=== PATIENT | female | born 1955 | race African-American/Black ===

== ENCOUNTER 2024-11-19 15:07 | Emergency (ER) | payer MEDICARE, SELFPAY ==
--- NOTE | ~2024-11-19 | XR_ITS ---
CHEST RADIOGRAPH, PA AND LATERAL CLINICAL HISTORY: syncope . COMPARISON: None available TECHNIQUE: PA and lateral views of the chest. FINDINGS The cardiomediastinal silhouette is unremarkable. A reticulonodular parenchymal pattern is detected bilaterally. No consolidation is present. No pleural effusion is noted. IMPRESSION: Reticulonodular parenchymal pattern, without focal infiltrate or effusion. Reviewed, dictated and finalized at location A.
--- NOTE | ~2024-11-19 | XR_ITS ---
HISTORY: left wrist pain, fall COMPARISON: None TECHNIQUE: 3 views of the left wrist were performed. FINDINGS: No acute fracture is identified. The carpal arcs are intact. Mild radiocarpal joint space narrowing with sclerosis of the distal radius is present. Degenerative disease is present at the first carpometacarpal joint space. The remaining visualized joint spaces are otherwise preserved. Bone mineralization is age-appropriate. Mild radial soft tissue swelling is noted. No radiopaque foreign body is identified. Significant vascular calcifications are present. IMPRESSION: Mild radial soft tissue swelling and degenerative disease. No acute fracture. Reviewed, dictated and finalized at location A.
[2024-11-19 15:34] VITALS: BP 145/64; PULSE 84; RESP 17; TEMP 36.8; O2SAT 97
--- NOTE | 2024-11-19 17:01 | ED.SYNCOPE ---
HPI - Syncope General Chief Complaint: Syncope <Mari Mayes PA-C - Last Filed: 11/20/24 10:56> Stated Complaint: syncopal episode this AM <Mari Mayes PA-C - Last Filed: 11/20/24 10:56> Time Seen by Provider: 11/19/24 17:01 <Mari Mayes PA-C - Last Filed: 11/20/24 10:56> Focused HPI: This is a 69 year old female that presents to the ER for a fall today. Reports she was at [facility] and she started to feel lightheaded. Reports she felt like she needed to go to the bathroom. Reports she got up to go to the bathroom. Reports she stumbled and fell. She does not believe she fully lost consciousness. She did not hit her head. Reports left wrist pain since the fall. Reports a similar episode of pre-syncope in the past. GENERAL: Well-appearing, well-nourished, and in no acute distress. HEAD: Normocephalic, atraumatic. CHEST: Clear to auscultation. ?No respiratory distress. HEART: Regular rate and rhythm.? NEURO: ?Alert and oriented x3. Patient screened in triage and initial orders placed.? ?Additional care and disposition to be based upon?diagnostic testing and treatment. <Mari Mayes PA-C - Last Filed: 11/20/24 10:56> History of Present Illness HPI narrative: I agree with the above HPI <Frank Peters MD - Last Filed: 11/19/24 22:57> Related Data Home Medications: Home Medications ?Medication ?Instructions ?Recorded ?Confirmed ?Last Taken ?Type apixaban 5 mg tablet (Eliquis) 5 mg PO BID 11/08/24 11/15/24 Unknown History atorvastatin 20 mg tablet (Lipitor) 20 mg PO DAILY 11/08/24 11/15/24 Unknown History calcitriol 0.25 mcg capsule 0.25 mcg PO 3XW 11/08/24 11/15/24 Unknown History diltiazem HCl 90 mg tablet 90 mg PO BID 11/08/24 11/15/24 Unknown History ergocalciferol (vitamin D2) 50 mcg 50 mcg PO DAILY 11/08/24 11/15/24 Unknown History (2,000 unit) capsule furosemide 40 mg tablet 40 mg PO QAM 11/08/24 11/15/24 Unknown History hydralazine 50 mg tablet 50 mg PO TID 11/08/24 11/15/24 Unknown History isosorbide dinitrate 30 mg tablet 30 mg PO DAILY 11/08/24 11/15/24 Unknown History losartan 100 mg tablet 100 mg PO DAILY 11/08/24 11/15/24 Unknown History semaglutide 0.25 mg or 0.5 mg (2 0.25 mg subcut WEEKLY 11/15/24 11/15/24 Unknown History mg/3 mL) subcutaneous pen injector (Ozempic) <Mari Mayes PA-C - Last Filed: 11/20/24 10:56> Allergies/Adverse Reactions: Allergies Allergy/AdvReac Type Severity Reaction Status Date / Time codeine Allergy Mild Hives Verified 11/19/24 15:40 <Mari Mayes PA-C - Last Filed: 11/20/24 10:56> Review of Systems Review of Systems: All systems reviewed & are unremarkable except as noted in HPI and below <Frank Peters MD - Last Filed: 11/19/24 22:57> [facility] Past Medical History Medical History: Medical History Type 2 diabetes mellitus <Mari Mayes PA-C - Last Filed: 11/20/24 10:56> Surgical History Surgical History: Surgical History History of cardiac ablation for atrial fibrillation Hx of cataract surgery <Mari Mayes PA-C - Last Filed: 11/20/24 10:56> Social History Social History: Social History Smoking status: Never smoker <Mari Mayes PA-C - Last Filed: 11/20/24 10:56> Exam Narrative: APPEARANCE: Well appearing, no pain, no distress, well-nourished. HEAD: normocephalic, atraumatic. EYES: PERRLA/EOMI, conjunctivae clear. NOSE: Normal no drainage EARS:TMS clear with good light reflex. THROAT: Pharynx clear, no exudate. NECK: Supple. No adenopathy, no masses. RESPIRATORY: Airway patent, respirations nonlabored. Clear to auscultation bilaterally, no rales, rhonchi, wheezing. CARDIOVASCULAR: Regular rate and rhythm without murmurs rubs or gallops. ABDOMINAL: Soft, nontender, nondistended, normal bowel sounds MUSCULOSKELETAL: Tenderness to left with was no deformity, normal range of motion NEURO: Alert. Cranial nerves II through XII intact. Good gait. Good coordination SKIN: Warm, dry. Normal Color <Frank Peters MD - Last Filed: 11/19/24 22:57> Course Vital Signs Vital signs: Vital Signs Temperature 98.2 F 11/19/24 15:34 Pulse Rate 84 11/19/24 15:34 Respiratory Rate 17 11/19/24 15:34 Blood Pressure 145/64 H 11/19/24 15:34 Pulse Oximetry 97 11/19/24 15:34 Oxygen Delivery Room Air 11/19/24 15:34 Temperature 98.2 F 11/19/24 15:34 Pulse Rate 89 11/19/24 23:32 Respiratory Rate 18 11/19/24 23:32 Blood Pressure 114/70 11/19/24 23:32 Pulse Oximetry 100 11/19/24 23:32 Oxygen Delivery Room Air 11/19/24 15:34 <Mari Mayes PA-C - Last Filed: 11/20/24 10:56> Vital Signs Temperature 98.2 F 11/19/24 15:34 Pulse Rate 84 11/19/24 15:34 Respiratory Rate 17 11/19/24 15:34 Blood Pressure 145/64 H 11/19/24 15:34 Pulse Oximetry 97 11/19/24 15:34 Oxygen Delivery Room Air 11/19/24 15:34 Temperature 98.2 F 11/19/24 15:34 Pulse Rate 89 11/19/24 23:32 Respiratory Rate 18 11/19/24 23:32 Blood Pressure 114/70 11/19/24 23:32 Pulse Oximetry 100 11/19/24 23:32 Oxygen Delivery Room Air 11/19/24 15:34 <Frank Peters MD - Last Filed: 11/19/24 22:57> MDM - Syncope MDM Narrative Medical decision making narrative: 61-year-old female presented emergency department for evaluation for a near syncopal episode during which she fell and injured her left wrist. Patient is currently afebrile with no leukocytosis hemoglobin of 10, patient does have known anemia. No significant electrolyte abnormalities. Patient does have a creatinine of 1.1 but patient was treated with a L of IV fluids. Baseline creatinine is unknown. Patient had negative troponin. Patient was negative for influenza RSV and for COVID. Chest x-ray shows no acute cardiopulmonary abnormality and wrist x-ray was negative for acute fracture dislocation. Patient does have a prior history of cardiac ablation and did have a Holter monitor recently that was resulted is negative. Patient describes more orthostatic hypotension rather than cardiac syncope. Patient was courage close follow-up with primary care physician. All questions concerns were addressed. <Frank Peters MD - Last Filed: 11/19/24 22:57> Differential Diagnosis Differential diagnosis: Likely syncope due to orthostatic hypotension, vasovagal syncope, complete atrioventricular block and other (Wrist fracture, wrist contusion) <Frank Peters MD - Last Filed: 11/19/24 22:57> Lab Data Attestation: I reviewed the patient's lab results. <Frank Peters MD - Last Filed: 11/19/24 22:57> Result diagrams: 11/19/24 20:30 11/19/24 21:21 <Mari Mayes PA-C - Last Filed: 11/20/24 10:56> Labs: Lab Results 11/19/24 11/19/24 11/19/24 Range/Units 19:50 20:27 20:29 WBC (4.5-10.0) K/mm3 RBC (4.2-5.4) M/mm3 Hgb (12.0-15.0) g/dL Hct (37.0-47.0) % MCV (80-100) fl MCH (26-34) pg MCHC (32-36) g/dl RDW (11.5-14.5) % Plt Count (150-375) k/mm3 MPV (7.4-10.4) fl Immature Gran % (Auto) (0-0.5) % Neut % (Auto) (45.5-73.1) % Lymph % (Auto) (18.3-44.2) % [place] % (Auto) (2.6-8.5) % Eos % (Auto) (0-4.4) % Baso % (Auto) (0.2-1.2) % Lymph # (Auto) (0.9-3.2) K/mm3 [place] # (Auto) (0.1-0.6) K/mm3 Eos # (Auto) (0-0.3) K/mm3 Baso # (Auto) (0.0-0.1) K/mm3 Abs Immat Gran (auto) (0.00-0.031) K/mm3 Absolute Neuts (auto) (1.3-6.7) K/mm3 Absolute Nucleated RBC (0.0-0.012) K/mm3 Band Neutrophils % (0-6) % Nucleated RBC % (0.0-0.2) % Platelet Estimate (Adequate) Hypochromasia Anisocytosis Schistocytes Sodium (137-145) mmol/L Potassium (3.4-5.0) mmol/L Chloride (98-107) mmol/L Carbon Dioxide (22-30) mmol/L Anion Gap (4-12) mmol/L BUN (7-17) mg/dL Creatinine (0.7-1.0) mg/dL Estim Creat Clear Calc ml/min Estimated GFR (59 - ) Glucose (65-110) mg/dL POC Capillary Glucose 103 107 H (65-105) mg/dl Calcium (8.4-10.2) mg/dL Magnesium Total Bilirubin (0.2-1.3) mg/dL AST (14-36) U/L ALT (6-35) U/L Alkaline Phosphatase (38-126) U/L Troponin I (0.000-0.034) ng/mL Total Protein (6.3-8.2) g/dL Albumin (3.5-5.1) g/dL TSH (Reflex) 1.370 (0.465-4.68) uIU/mL Influenza A (RT-PCR) (Negative) Influenza B (RT-PCR) (Negative) RSV (RT-PCR) (Negative) SARS-CoV-2 RNA (RT-PCR) (Negative) 11/19/24 11/19/24 11/19/24 Range/Units 20:30 20:41 21:21 WBC 6.0 (4.5-10.0) K/mm3 RBC 4.41 (4.2-5.4) M/mm3 Hgb 10.0 L (12.0-15.0) g/dL Hct 33.8 L (37.0-47.0) % MCV 76.6 L (80-100) fl MCH 22.7 L (26-34) pg MCHC 29.6 L (32-36) g/dl RDW 17.6 H (11.5-14.5) % Plt Count 233 (150-375) k/mm3 MPV 9.8 (7.4-10.4) fl Immature Gran % (Auto) 0.2 (0-0.5) % Neut % (Auto) 64.7 (45.5-73.1) % Lymph % (Auto) 26.0 (18.3-44.2) % [place] % (Auto) 8.0 (2.6-8.5) % Eos % (Auto) 0.8 (0-4.4) % Baso % (Auto) 0.3 (0.2-1.2) % Lymph # (Auto) 1.56 (0.9-3.2) K/mm3 [place] # (Auto) 0.5 (0.1-0.6) K/mm3 Eos # (Auto) 0.1 (0-0.3) K/mm3 Baso # (Auto) 0.0 (0.0-0.1) K/mm3 Abs Immat Gran (auto) 0.01 (0.00-0.031) K/mm3 Absolute Neuts (auto) 3.9 (1.3-6.7) K/mm3 Absolute Nucleated RBC 0.000 (0.0-0.012) K/mm3 Band Neutrophils % 0 (0-6) % Nucleated RBC % 0.0 (0.0-0.2) % Platelet Estimate Adequate (Adequate) Hypochromasia 1+ Anisocytosis 2+ Schistocytes None seen Sodium 137 (137-145) mmol/L Potassium 4.2 (3.4-5.0) mmol/L Chloride 106 (98-107) mmol/L Carbon Dioxide 20 L (22-30) mmol/L Anion Gap 11 (4-12) mmol/L BUN 22 H (7-17) mg/dL Creatinine 1.11 H (0.7-1.0) mg/dL Estim Creat Clear Calc 50 ml/min Estimated GFR 49 L (59 - ) Glucose 88 (65-110) mg/dL POC Capillary Glucose (65-105) mg/dl Calcium 8.5 (8.4-10.2) mg/dL Magnesium Cancelled 2.2 Total Bilirubin 0.6 (0.2-1.3) mg/dL AST 28 (14-36) U/L ALT 17 (6-35) U/L Alkaline Phosphatase 104 (38-126) U/L Troponin I < 0.012 (0.000-0.034) ng/mL Total Protein 7.0 (6.3-8.2) g/dL Albumin 3.8 (3.5-5.1) g/dL TSH (Reflex) (0.465-4.68) uIU/mL Influenza A (RT-PCR) Negative (Negative) Influenza B (RT-PCR) Negative (Negative) RSV (RT-PCR) Negative (Negative) SARS-CoV-2 RNA (RT-PCR) Negative (Negative) <Mari Mayes PA-C - Last Filed: 11/20/24 10:56> Lab Results 11/19/24 11/19/24 11/19/24 Range/Units 19:50 20:27 20:29 WBC (4.5-10.0) K/mm3 RBC (4.2-5.4) M/mm3 Hgb (12.0-15.0) g/dL Hct (37.0-47.0) % MCV (80-100) fl MCH (26-34) pg MCHC (32-36) g/dl RDW (11.5-14.5) % Plt Count (150-375) k/mm3 MPV (7.4-10.4) fl Immature Gran % (Auto) (0-0.5) % Neut % (Auto) (45.5-73.1) % Lymph % (Auto) (18.3-44.2) % [place] % (Auto) (2.6-8.5) % Eos % (Auto) (0-4.4) % Baso % (Auto) (0.2-1.2) % Lymph # (Auto) (0.9-3.2) K/mm3 [place] # (Auto) (0.1-0.6) K/mm3 Eos # (Auto) (0-0.3) K/mm3 Baso # (Auto) (0.0-0.1) K/mm3 Abs Immat Gran (auto) (0.00-0.031) K/mm3 Absolute Neuts (auto) (1.3-6.7) K/mm3 Absolute Nucleated RBC (0.0-0.012) K/mm3 Band Neutrophils % (0-6) % Nucleated RBC % (0.0-0.2) % Platelet Estimate (Adequate) Hypochromasia Anisocytosis Schistocytes Sodium (137-145) mmol/L Potassium (3.4-5.0) mmol/L Chloride (98-107) mmol/L Carbon Dioxide (22-30) mmol/L Anion Gap (4-12) mmol/L BUN (7-17) mg/dL Creatinine (0.7-1.0) mg/dL Estim Creat Clear Calc ml/min Estimated GFR (59 - ) Glucose (65-110) mg/dL POC Capillary Glucose 103 107 H (65-105) mg/dl Calcium (8.4-10.2) mg/dL Magnesium Total Bilirubin (0.2-1.3) mg/dL AST (14-36) U/L ALT (6-35) U/L Alkaline Phosphatase (38-126) U/L Troponin I (0.000-0.034) ng/mL Total Protein (6.3-8.2) g/dL Albumin (3.5-5.1) g/dL TSH (Reflex) 1.370 (0.465-4.68) uIU/mL Influenza A (RT-PCR) (Negative) Influenza B (RT-PCR) (Negative) RSV (RT-PCR) (Negative) SARS-CoV-2 RNA (RT-PCR) (Negative) 11/19/24 11/19/24 11/19/24 Range/Units 20:30 20:41 21:21 WBC 6.0 (4.5-10.0) K/mm3 RBC 4.41 (4.2-5.4) M/mm3 Hgb 10.0 L (12.0-15.0) g/dL Hct 33.8 L (37.0-47.0) % MCV 76.6 L (80-100) fl MCH 22.7 L (26-34) pg MCHC 29.6 L (32-36) g/dl RDW 17.6 H (11.5-14.5) % Plt Count 233 (150-375) k/mm3 MPV 9.8 (7.4-10.4) fl Immature Gran % (Auto) 0.2 (0-0.5) % Neut % (Auto) 64.7 (45.5-73.1) % Lymph % (Auto) 26.0 (18.3-44.2) % [place] % (Auto) 8.0 (2.6-8.5) % Eos % (Auto) 0.8 (0-4.4) % Baso % (Auto) 0.3 (0.2-1.2) % Lymph # (Auto) 1.56 (0.9-3.2) K/mm3 [place] # (Auto) 0.5 (0.1-0.6) K/mm3 Eos # (Auto) 0.1 (0-0.3) K/mm3 Baso # (Auto) 0.0 (0.0-0.1) K/mm3 Abs Immat Gran (auto) 0.01 (0.00-0.031) K/mm3 Absolute Neuts (auto) 3.9 (1.3-6.7) K/mm3 Absolute Nucleated RBC 0.000 (0.0-0.012) K/mm3 Band Neutrophils % 0 (0-6) % Nucleated RBC % 0.0 (0.0-0.2) % Platelet Estimate Adequate (Adequate) Hypochromasia 1+ Anisocytosis 2+ Schistocytes None seen Sodium 137 (137-145) mmol/L Potassium 4.2 (3.4-5.0) mmol/L Chloride 106 (98-107) mmol/L Carbon Dioxide 20 L (22-30) mmol/L Anion Gap 11 (4-12) mmol/L BUN 22 H (7-17) mg/dL Creatinine 1.11 H (0.7-1.0) mg/dL Estim Creat Clear Calc 50 ml/min Estimated GFR 49 L (59 - ) Glucose 88 (65-110) mg/dL POC Capillary Glucose (65-105) mg/dl Calcium 8.5 (8.4-10.2) mg/dL Magnesium Cancelled 2.2 Total Bilirubin 0.6 (0.2-1.3) mg/dL AST 28 (14-36) U/L ALT 17 (6-35) U/L Alkaline Phosphatase 104 (38-126) U/L Troponin I < 0.012 (0.000-0.034) ng/mL Total Protein 7.0 (6.3-8.2) g/dL Albumin 3.8 (3.5-5.1) g/dL TSH (Reflex) (0.465-4.68) uIU/mL Influenza A (RT-PCR) Negative (Negative) Influenza B (RT-PCR) Negative (Negative) RSV (RT-PCR) Negative (Negative) SARS-CoV-2 RNA (RT-PCR) Negative (Negative) <Frank Peters MD - Last Filed: 11/19/24 22:57> Imaging Data Radiologist's impression: Impressions Chest X-Ray 11/19/24 17:26 IMPRESSION: Reticulonodular parenchymal pattern, without focal infiltrate or effusion. Wrist X-Ray 11/19/24 17:28 IMPRESSION: Mild radial soft tissue swelling and degenerative disease. No acute fracture. <Frank Peters MD - Last Filed: 11/19/24 22:57> Critical Care Time Critical Care Time Critical Care Time: No <Mari Mayes PA-C - Last Filed: 11/20/24 10:56> Discharge Plan Discharge Clinical Impression: Near syncope Left wrist sprain Qualifiers: Encounter type: initial encounter Qualified Code(s): S63.502A - Unspecified sprain of left wrist, initial encounter <Mari Mayes PA-C - Last Filed: 11/20/24 10:56> Patient Disposition: Home <DILLON Burton Last Filed: 11/20/24 10:56> Condition: Stable <Mari Mayes PA-C - Last Filed: 11/20/24 10:56> Instructions: Antibiotic Form, Near Syncope (ED), Wrist Sprain (ED) <Mari Mayes PA-C - Last Filed: 11/20/24 10:56> Additional Instructions: Tylenol for pain control. Volar brace or Daniel wrap for comfort for the left wrist. Have close follow-up with her primary care physician for additional outpatient cardiac testing. If you have any worsening symptoms then please call or return to the emergency department. <Mari Mayes PA-C - Last Filed: 11/20/24 10:56> Patient Language: Croatian <Mari Mayes PA-C - Last Filed: 11/20/24 10:56> Prescriptions: No Action atorvastatin [Lipitor] 20 mg tablet 20 mg PO DAILY calcitriol 0.25 mcg capsule 0.25 mcg PO 3XW Rx Instructions: administer after dialysis on dialysis days diltiazem HCl 90 mg tablet 90 mg PO BID Eliquis 5 mg tablet 5 mg PO BID ergocalciferol (vitamin D2) 50 mcg (2,000 unit) capsule 50 mcg PO DAILY furosemide 40 mg tablet 40 mg PO QAM hydralazine 50 mg tablet 50 mg PO TID isosorbide dinitrate 30 mg tablet 30 mg PO DAILY Rx Instructions: allow nitrate-free interval of 12-14 hrs per 24-hr period losartan 100 mg tablet 100 mg PO DAILY Ozempic 0.25 mg or 0.5 mg (2 mg/3 mL) pen injector 0.25 mg subcut WEEKLY Rx Instructions: for 4 weeks <Mari Mayes PA-C - Last Filed: 11/20/24 10:56> Follow-up/Referrals: PHYSICIAN NOT ON STAFF,NONSTAFF [Non-Staff] - <Mari Mayes PA-C - Last Filed: 11/20/24 10:56>
--- NOTE | 2024-11-19 17:03 | ECG_ITS ---
Test Date: 2024-11-19 18:30:08 Measurements Intervals [place] Rate: 72 P: 36 CO: 175 QRS: -15 QRSD: 96 T: 68 QT: 429 QTc: 471 Interpretive Statements SINUS RHYTHM DELAYED PRECORDIAL R/S TRANSITION BORDERLINE ST-T WAVE ABNORMALITY- HIGH LATERAL LEADS BASELINE ARTIFACT- I, II, III, AVR, AVL, AVF, V1-V2 BORDERLINE ECG No previous ECG available for comparison Electronically Signed On 11-19-2024 19:49:11 CDT by Oscar Shelley D.O.
--- OUTSIDE RECORDS SUMMARY | 2024-11-19 17:18 | XMS_ITS | Referral Summary ---
Author Organization [facility] Address [address] [place] [id number] Care Team Providers Care Horticultural Nursery Assistant Name Role Phone Fiona Guzman MD Primary Care Provider Encounters Date Type Department Care Team Description 10/03/2024 2:30 PM CDT - 10/03/2024 11:59 PM CDT Hospital Encounter [facility] Cardiac Testing [address] [place] [address] Cardiac arrhythmia, unspecified cardiac arrhythmia type Discharge Disposition: Discharge to home or self care 08/28/2024 2:16 PM ECONOMETRICIAN - 08/28/2024 11:59 PM ECONOMETRICIAN Hospital Encounter [facility] MRI [address] [place] [address] Renal artery stenosis Discharge Disposition: Discharge to home or self care from Last 3 Months Allergies Active Allergy Reactions Criticality Noted Date Comments Codeine Rash Medium 05/12/2023 Medications hydrALAZINE (APRESOLINE) 25 mg tabletIndication s:hypertension Take 1 tablet (25 mg total) by mouth 3 (three) times a day Active furosemide (LASIX) 40 mg tablet Take 1 tablet (40 mg total) by mouth daily Active atorvastatin (LIPITOR) 10 mg tablet Take 1 tablet (10 mg total) by mouth daily Active isosorbide mononitrate ER (IMDUR) 30 mg 24 hr tablet Take 1 tablet (30 mg total) by mouth daily Active losartan (COZAAR) 100 mg tablet Take 1 tablet (100 mg total) by mouth daily Active metFORMIN (GLUCOPHAGE) 500 mg tablet Take 1 tablet (500 mg total) by mouth 2 (two) times a day with meals Active albuterol HFA (PROVENTIL HFA,VENTOLIN HFA,PROAIR HFA) 90 mcg/actuation inhaler Inhale 2 puffs every 4 (four) hours as needed 04/02/2023 Active amiodarone (PACERONE) 200 mg tablet Take 1 tablet (200 mg total) by mouth 2 (two) times a day 60 tablet 05/18/2023 Active apixaban (ELIQUIS) 5 mg tabletIndication s:VTE Prophylaxis Take 1 tablet (5 mg total) by mouth 2 (two) times a day 60 tablet 05/18/2023 Active Active Problems Problem Noted Date Diagnosed Date SVT (supraventricular tachycardia) 05/17/2023 Supraventricular tachycardia 04/22/2023 Social History Tobacco Use Types Packs/Day Years Used Date Smoking Tobacco: Never Smokeless Tobacco: Never Tobacco Cessation:Counseling Given: Not Answered AUDIT-C Answer Date Recorded Q1: How often do you have a drink containing alc ohol? Monthly or less 05/17/2023 Q2: How many drinks containi ng alcohol do you have on a typical day when you are drinking? 1 or 2 05/17/2023 Q3: How often do you have si x or more drinks on one occasion? Less than monthly 05/17/2023 Personal Safety Answer Date Recorded Have you ever been in or are you currently in a harmful physical or emotional relationship or is someone making you feel afraid or unsafe? Denies 05/17/2023 Comments Unknown Sex and Gender Information Value Date Recorded Sex Assigned at Not on file Legal Sex Female 12:22 PM ECONOMETRICIAN Gender Identity Not on file Sexual Orientation Not on file Last Filed Vital Signs Vital Sign Reading Time Taken Comments Blood Pressure 126/60 05/18/2023 8:14 AM CDT Pulse 81 05/18/2023 8:14 AM CDT Temperature 36.3 C (97.3 F) 05/18/2023 8:14 AM CDT Respiratory Rate 18 05/18/2023 8:14 AM CDT Oxygen Saturation 95% 05/18/2023 8:14 AM CDT Inhaled Oxygen Concentration - - Weight 108.9 kg (240 lb) 05/17/2023 11:04 AM CDT Height 157.5 cm (5' 2 ) 05/17/2023 11:04 AM CDT Body Mass Index 43.9 05/17/2023 11:04 AM CDT Plan of Treatment Not on file Procedures Procedure Name Priority Date/Time Associated Diagnosis Comments HOLTER MONITOR 24 HR Routine 10/03/2024 2:42 PM CDT Cardiac arrhythmia, unspecified cardiac arrhythmia type MRA RENAL ARTERIES Schedule Routine, Read Routine (OP Routine) 08/28/2024 3:20 PM ECONOMETRICIAN Renal artery stenosis from Last 3 Months Results * 24 HR Holter Monitor (10/03/2024 2:42 PM CDT) Anatomical Region Laterality Modality Electrocardiogra phy Narrative 10/11/2024 2:43 PM CDT Patient Id: Radha Gupta is a 69 y.o. female. MR#: [id number] Date of the procedure: October 03, 2024 Diagnosis: Arrhythmia Findings: 24 hour Holter done on the 03 October 2024 showed sinus rhythm at baseline. Heart rate varies from 48 beats per minute 157 beats per minute. Average heart rate is 70 beats per minute. Rhythm is bradycardia for less than 1% of the time and tachycardic for 2% of the time. The maximum sinus heart rate 113 beats per minute. There were 68 PVCs which accounted for less than 1% of total number of beats. There were 2769 PACS which accounted for 3% of total number of beats. There were 3 episodes of SVT. The longest is 11 beats per minute at heart rate 157 beats per minute. At that time patient asymptomatic. During minimum heart rate rhythm is sinus rhythm. Longest RR interval is 1.3 seconds after a 3 beat run of SVT. Patient did not report any symptoms Copy to Fiona Guzman MD 10/11/2024 Fiona Guzman MD [facility] SERVICES PROCEDUR ES Final Result * MRA Renal Arteries (08/28/2024 3:20 PM ECONOMETRICIAN) Anatomical Region Laterality Modality Body N/A Magnetic Resonan ce 08/28/2024 3:36 PM ECONOMETRICIAN Addenda Addendum by Temo Nuno DO on 09/17/2024 9:13 AM ECONOMETRICIAN ADDENDUM: This addendum report supersedes the original report dated 08/28/24 Reason of study should read: High blood pressure, atherosclerosis, diabetic END OF ADDENDUM REPORT THIS IS AN ELECTRONICALLY VERIFIED FINAL REPORT 09/17/2024 9:13 AM Addendum Electronically signed by Tmeo Nuno D.O. PS Report ID: [id number] Reading Location: [id number] 08/28/2024 3:41 PM ECONOMETRICIAN EXAM DESCRIPTION: MRA RENAL ARTERIES REASON FOR STUDY: renal artery stenosis TECHNIQUE: Multiplanar, multi-sequence (T1 and T2) contrast enhanced magnetic resonance imaging of the abdomen was performed according to abdominal aorta protocol. 3D MIP images rendered on scanning unit and reviewed at time of interpretation. CONTRAST TYPE/DOSE: 20mL of GADOTERATE MEGLUMINE 0.5 MMOL/ML INTRAVENOUS SOLUTION (SO) injected via intravenous COMPARISON: None. FINDINGS: AORTA AND ILIAC ARTERIES: The abdominal aorta is grossly normal in course and caliber without evidence of aneurysmal dilatation or hemodynamically significant stenosis. RENAL ARTERIES: There is a single right renal artery noted without evidence of hemodynamically significant stenosis, occlusion, or aneurysmal dilatation. There is a single left renal artery noted without evidence of hemodynamically significant stenosis, occlusion, aneurysmal dilatation. MESENTERIC VESSELS: The celiac artery appears grossly unremarkable without evidence of hemodynamically significant stenosis, aneurysmal dilatation, or occlusion. The superior mesenteric artery appears grossly unremarkable without evidence of hemodynamically significant stenosis, occlusion, aneurysmal dilatation. ABDOMEN/PELVIC VISCERA: The heart size is upper limits of normal. There is no definite evidence of pericardial effusion. The visualized lung bases are grossly clear. The liver is grossly normal in size and contour without definite evidence of a focal hepatic lesion within the limitations of the study. There is cholelithiasis without definite evidence of gallbladder wall thickening or pericholecystic fluid. The spleen is grossly normal in size and unremarkable. The pancreas appears grossly unremarkable without definite evidence of pancreatic ductal dilatation, peripancreatic inflammatory changes, or peripancreatic fluid collection. The bilateral adrenal glands are grossly symmetrical and unremarkable. The kidneys are grossly symmetrical in size. The bilateral kidneys enhance symmetrically. There is no definite evidence of a focal renal lesion. There is no definite evidence of hydronephrosis. The visualized bowel appears grossly unremarkable. There is no definite evidence of free fluid in the abdomen. There is no definite MRI evidence of abdominal lymphadenopathy. BONY STRUCTURES: There is a minimal to mild levoscoliotic curvature of the spine with degenerative changes. OTHER: No other significant finding. IMPRESSION: No definite evidence of hemodynamically significant stenosis, occlusion, or aneurysmal dilatation involving the bilateral renal arteries. Cholelithiasis. THIS IS AN ELECTRONICALLY VERIFIED FINAL REPORT 08/28/2024 3:41 PM - Electronically signed by Temo SANTAMARIA T: Report ID: [id number] Reading Location: [place] [address] Procedure Note Temo Nuno, DO - 08/28/2024 EXAM DESCRIPTION: MRA RENAL ARTERIES REASON FOR STUDY: renal artery stenosis TECHNIQUE: Multiplanar, multi-sequence (T1 and T2) contrast enhancedmagnetic resonance imaging of the abdomen was performed according to abdominalaorta protocol. 3D MIP images rendered on scanning unit and reviewed at timeof interpretation. CONTRAST TYPE/DOSE: 20mL of GADOTERATE MEGLUMINE 0.5 MMOL/ML INTRAVENOUS SOLUTION (SO) injected via intravenous COMPARISON: None. FINDINGS: AORTA AND ILIAC ARTERIES: The abdominal aorta is grosslynormal in course and caliber without evidence of aneurysmal dilatation or hemodynamically significant stenosis. RENAL ARTERIES: There is a single right renal artery noted withoutevidence of hemodynamically significant stenosis, occlusion, or aneurysmaldilatation. There is a single left renal artery noted without evidence ofhemodynamically significant stenosis, occlusion, aneurysmal dilatation. MESENTERIC VESSELS: The celiac artery appears grossly unremarkablewithout evidence of hemodynamically significant stenosis, aneurysmal dilatation,or occlusion. The superior mesenteric artery appears grossly unremarkable without evidence of hemodynamically significant stenosis, occlusion, aneurysmal dilatation. ABDOMEN/PELVIC VISCERA: The heart size is upper limits of normal. Thereis no definite evidence of pericardial effusion. The visualized lung basesare grossly clear. The liver is grossly normal in size and contour without definite evidenceof a focal hepatic lesion within the limitations of the study. There is cholelithiasis without definite evidence of gallbladder wall thickening or pericholecystic fluid. The spleen is grossly normal in size and unremarkable. The pancreas appears grossly unremarkable without definite evidence of pancreatic ductal dilatation, peripancreatic inflammatory changes, or peripancreatic fluid collection. The bilateral adrenal glands are grossly symmetrical and unremarkable. The kidneys are grossly symmetrical in size. The bilateral kidneysenhance symmetrically. There is no definite evidence of a focal renal lesion.There is no definite evidence of hydronephrosis. The visualized bowel appears grossly unremarkable. There is no definite evidence of free fluid in the abdomen. There is no definite MRI evidenceof abdominal lymphadenopathy. BONY STRUCTURES: There is a minimal to mild levoscoliotic curvature ofthe spine with degenerative changes. OTHER: No other significant finding. IMPRESSION: No definite evidence of hemodynamically significant stenosis, occlusion,or aneurysmal dilatation involving the bilateral renal arteries. Cholelithiasis. THIS IS AN ELECTRONICALLY VERIFIED FINAL REPORT 08/28/2024 3:41 PM - Electronically signed by Temo Nuno D.O. PS T: Report ID: [id number] Reading Location: [place] [address] Jony Santa MD IMG MRI PROCEDURES Edite d Result - Final from Last 3 Months Insurance [facility] MEDICARE ADVANTAGE Care Teams Horticultural Nursery Assistant Relationship Specialty Start Date End Date Fiona Guzman MD [address] [place] [id number] PCP - General Emergency Medicine 10/01/24
--- OUTSIDE RECORDS SUMMARY | 2024-11-19 17:18 | XMS_ITS | CONTINUITY OF CARE DOCUMENT ---
Author Name andriy ashraf Address Unknown Organization [facility] Address [address] [place] [address] Phone [phone] Care Team Providers Care Clamp Carrier Operator Name Role Phone Pedro TATUM, Balta Unavailable NORY MCKEE MD Unavailable [phone] NORY MCKEE MD Unavailable [phone] PROBLEMS Condition Status Date Provider Notes Atrial flutter ? typical active Balta pack MD Hyperlipidemia active Lamine Connell MD Pulmonary nodule active Lamine Connell MD Essential hypertension completed 0 - Rohan Albarado Chest pain active Lamine Connell MD Diabetes, Type 2 active ? Lamine Connell MD Hypertension active ? Lamine Connell MD Personal history of COVID-19 active Edison Broussard Palpitation active Edison Broussard SVT active Balta Vasquez MD Shortness of breath active Rohan Albarado Carotid bruit active Rohan Albarado ENCOUNTERS Date Type Provider Location Encounter Diag nosis - In-person encounter Office Visit Balta Vasquez MD [place] [facility] Carotid bruit - In-person encounter Office Visit Balta Vasquez MD [place] - In-person encounter Office Visit Balta Vasquez MD [facility] Essential hypertensionShortness of breath - In-person encounter Office Visit Balta Vasquez MD [place] Personal history of COVID-19PalpitationSVT - In-person encounter Office Visit Lamine Connell MD [facility] - In-person encounter Office Visit Lamine Connell MD [facility] HyperlipidemiaPulmonary noduleChest painDiabetes, Type 2Hypertension VITAL SIGNS Date Observation Value Provider Body Mass Index (Ratio) 43.34 kg/m2 Rohan Dentzai blood pressure, diastolic 91 mm[Hg] Li nkLogic blood pressure, systolic 172 mm[Hg] Grace kLogic blood pressure, cuff size regular Ja rret blood pressure, diastolic 91 mm[Hg] Ja rret blood pressure, systolic 172 mm[Hg] Jar ret pulse rate 80 /min Cam oxygen saturation, oximetry 97 % respiratory rate E&M 16 /min Cam weight E&M 237 [lb_av] y height E&M 62 [in_i] Cam y Body Mass Index (Ratio) 43.53 kg/m2 David Vasquez MD blood pressure, cuff size large Ke rri Gruenenfelder blood pressure, diastolic 86 mm[Hg] Ke rri Gruenenfelder blood pressure, systolic 176 mm[Hg] Ker ri Margareter oxygen saturation, oximetry 98 % Nuvia Beto respiratory rate E&M 12 /min Nuvia G hamenenfelder pulse rate 83 /min Nuvia Gruenenfe [facility] weight E&M 238 [lb_av] Nuvia Gruenenfe [facility] height E&M 62 [in_i] Nuvia Gruenenfe [facility] Body Mass Index (Ratio) 43.53 kg/m2 Rohan Dentzai blood pressure, diastolic 78 mm[Hg] Marcelina nkLogic blood pressure, systolic 157 mm[Hg] Grace kLogic blood pressure, cuff size regular Fa [facility] blood pressure, diastolic 78 mm[Hg] Fa [facility] blood pressure, systolic 157 mm[Hg] Miguel [place] oxygen saturation, oximetry 97 % [facility] pulse rate 78 /min [facility] respiratory rate E&M 16 /min Amie iniguez weight E&M 238 [lb_av] [facility] height E&M 62 [in_i] [facility] weight E&M 241 [lb_av] Mari vargas Body Mass Index (Ratio) 44.07 kg/m2 David Vasquez MD blood pressure, cuff size regular Ke rri Wildueirina blood pressure, diastolic 102 mm[Hg] Ke rri Gruenenfsebastian blood pressure, systolic 220 mm[Hg] Natalya ri Beto oxygen saturation, oximetry 98 % Nuvia Margaret respiratory rate E&M 12 /min Nuvia isaacs pulse rate 94 /min Nuvia Veranenfsheba [facility] weight E&M 241 [lb_av] Nuvia Veranenfe [facility] height E&M 62 [in_i] Nuvia Veranenfsheba [facility] Body Mass Index (Ratio) 45.76 kg/m2 Brendon Connell MD blood pressure, diastolic 91 mm[Hg] Boy Colin blood pressure, systolic 189 mm[Hg] Samina Colin oxygen saturation, oximetry 98 % Vlad Colin respiratory rate E&M 18 /min Julian Colin pulse rate 88 /min Vlad haji weight E&M 250.2 [lb_av] Vlad paon height E&M 62 [in_i] Vlad haji Body Mass Index (Ratio) 46.27 kg/m2 Brendon Connell MD blood pressure, resting Yes P[facility] blood pressure, diastolic 100 mm[Hg] Ki omid [place] blood pressure, systolic 140 mm[Hg] Dante leon [place] oxygen saturation, oximetry 98 % [facility] respiratory rate E&M 16 /min [facility] pulse rate 75 /min [facility] weight E&M 253 [lb_av] [facility] height E&M 62 [in_i] [facility] ALLERGIES Allergy Name Onset Date Reaction Criticality Status CODEINE SULFATE rash rash Low Criticality acti ve HISTORY OF MEDICATION USE Medication Status Instructions Dates Provider Indications Com ments magnesium oxide 400 mg (241.3 mg magnesium) tablet active TAKE 1 TABLET BY MOUTH TWICE DAILY Analy Rushing diltiazem HCl 90 mg tablet active TAKE 1 TABLET BY MOUTH TWICE DAILY Antonina Bach RN Eliquis 5 mg tablet active TAKE 1 TABLET BY MOUTH TWICE DAILY Analy Rushing diltiazem HCl 90 mg tablet completed Take 1 tablet by mouth twice a day - Antonina Bach RN magnesium oxide 400 mg magnesium tablet completed Take 1 tablet by mouth twice a day - Analy Rushing amiodarone 200 mg tablet completed Take 1 tablet by mouth twice a day - Rohan Albarado amiodarone 200 mg tablet completed - Nuvia Ballesterosquis 5 mg tablet completed TAKE 1 TABLET TWICE A DAY - Analy Santana hydralazine 25 mg tablet active three times a day Rohan Albarado isosorbide mononitrate 30 mg tablet extended release 24 hr active Edison Bobo EQ ONE DAILY WOMENS 50+ TABS active 1 tablet once a day Edison Bobo ASPIR-81 TABLET DELAYED RELEASE active 1 tablet once a day Edison Bobo Lipitor 10 mg tablet active 1 tablet once a day Edison Bobo metformin 500 mg tablet active Take 1 tablet by mouth twice a day as directed Edison Bobo #60, 30 days supply, Prescribed by NORY MCKEE, Filled 04/09/2017 metoprolol tartrate 100 mg tablet completed Take 1 tablet by mouth twice a day - Edison Bobo #60, 30 days supply, Prescribed by NORY MCKEE, Filled 04/13/2017 losartan 100 mg tablet active Take 1 tablet by mouth once a day as directed Edison Bobo #30, 30 days supply, Prescribed by NORY MCKEE, Filled 04/13/2017 furosemide 40 mg tablet active Take 1 tablet by mouth once a day as directed Edison Bobo #30, 30 days supply, Prescribed by NORY MCKEE, Filled 04/13/2017 BiDil 20-37.5 mg tablet completed Take 1 tablet by mouth three times a day as directed - Rohan Albarado #90, 30 days supply, Prescribed by NORY MCKEE, Filled 04/16/2017 SOCIAL HISTORY Date Observation Value Provider alcohol use no Rohan Albarado passive cigarette sm paty exposure no Rohan Albarado smoking status Never smoker Rohan Albarado alcohol use no Rohan Albarado passive cigarette sm paty exposure no Rohan Albarado smoking status Never smoker Rohan Albarado social history E&M Marital Statu s: Single Miguelina lackey: 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 Lamine Connell MD social history reviewed E&M revi ewed - no changes required Lamine Connell MD smoking status Never smoker [place] Myriam [facility]ley FAMILY HISTORY Family Member Condition Father Family History of Pr ostate Cancer: Father Family History of Miryam ng Cancer: Father Family History of Ao rtic Aneurysm: INSURANCE PROVIDERS Payer name Policy type / Coverage type [place] red republican ID [facility] Other AARP MEDICARE ADVANTAGE [facility] (O) Medicare [id number] ADVANCE DIRECTIVES Name Date DISCUSSED - NO DECISION MADE TREATMENT PLAN Date Name Performer [id number],Miguelinai alessandra, she is on amiodarone, will check PFT for baseline [facility] [id number],C, H er updated medication list for this problem includes: Lipitor 10 Mg Tablet (Atorvastatin) ..... 1 tablet once a day [facility] [id number],C, H er updated medication list for this problem includes: Losartan 100 Mg Tablet (Losartan) ..... Take 1 tablet by mouth once a day as directed Metformin 500 Mg Tablet (Metformin) ..... Take 1 tablet by mouth twice a day as directed [facility] [id number],C, B P today: 157/78 P rior BP: 220/102 (04/22/2023) Her updated medication list for this problem includes: Furosemide 40 Mg Tablet (Furosemide) ..... Take 1 tablet by mouth once a day as directed Losartan 100 Mg Tablet (Losartan) ..... Take 1 tablet by mouth once a day as directed Hydralazine 25 Mg Tablet (Hydralazine) [facility] [id number],C, palpitations have improved since her procedure [facility] [id number],C,s/p ablation on 05/17 [facility] [id number],C,s/p ablation on 05/17 [facility] [id number],W,P t is here following discharge from hospital yesterday after arriving due to palpitations. She had covid-19 last month and did not feel well. She also contracted another virus beginning of March. She noticed palpitations occuring after these viral infections. She reports no syncope or CP today. Dc from hospital Creatinine 1.0 eGRFR more than 60. Normal liver function. EKG showed SVT and AVRCT R ecommend pt undergo ablation given her frequent symptomatic episodes of arrythmias Rohan Albarado [id number],S, H er updated medication list for this problem includes: Lipitor 10 Mg Tablet (Atorvastatin) ..... 1 tablet once a day Edison Broussard [id number],W,P t is here following discharge from hospital yesterday after arriving due to palpitations. She had covid-19 last month and did not feel well. She also contracted another virus beginning of March. She noticed palpitations occuring after these viral infections. She reports no syncope or CP today. Dc from hospital Creatinine 1.0 eGRFR more than 60. Normal liver function. EKG showed SVT and AVRCT Edison Broussard [id number],S, Her updated medication list for this problem includes: Aspir-81 Tablet Delayed Release (Aspirin tbec) ..... 1 tab daily Metformin Hcl 500 Mg Oral Tablet (Metformin hcl) ..... Tk 1 t po bid utd Losartan Potassium 100 Mg Oral Tablet (Losartan potassium) ..... Tk 1 t po qd utd Edison Broussard [id number],S, B P today: 220/102 P rior BP: 189/91 (06/20/2018) Her updated medication list for this problem includes: Aspir-81 Tablet Delayed Release (Aspirin tbec) ..... 1 tab daily Metoprolol Tartrate 100 Mg Oral Tablet (Metoprolol tartrate) ..... Tk 1 t po bid Losartan Potassium 100 Mg Oral Tablet (Losartan potassium) ..... Tk 1 t po qd utd Furosemide 40 Mg Oral Tablet (Furosemide) ..... Tk 1 t po qd utd Edison Broussard Electrophysiology:EK G today shows sinus rhythm Rohan Albarado Electrophysiology:Mo nitor your BP at home, goal BP is <135/85 R educe dietary sodium consumption BP today: 172/91 P rior BP: 176/86 (07/08/2023) Her updated medication list for this problem includes: Diltiazem Hcl 90 Mg Tablet (Diltiazem hcl) ..... Take 1 tablet by mouth twice a day Furosemide 40 Mg Tablet (Furosemide) ..... Take 1 tablet by mouth once a day as directed Losartan 100 Mg Tablet (Losartan) ..... Take 1 tablet by mouth once a day as directed Hydralazine 25 Mg Tablet (Hydralazine) [facility] Electrophysiology: H er updated medication list for this problem includes: Diltiazem Hcl 90 Mg Tablet (Diltiazem hcl) ..... Take 1 tablet by mouth twice a day Isosorbide Mononitrate 30 Mg Tablet Extended Release 24 Hr (Isosorbide mononitrate) [facility] Electrophysiology: H er updated medication list for this problem includes: Diltiazem Hcl 90 Mg Tablet (Diltiazem hcl) ..... Take 1 tablet by mouth twice a day Furosemide 40 Mg Tablet (Furosemide) ..... Take 1 tablet by mouth once a day as directed Losartan 100 Mg Tablet (Losartan) ..... Take 1 tablet by mouth once a day as directed [facility] Electrophysiology: H er updated medication list for this problem includes: Lipitor 10 Mg Tablet (Atorvastatin) ..... 1 tablet once a day [facility] Electrophysiology: H er updated medication list for this problem includes: Losartan 100 Mg Tablet (Losartan) ..... Take 1 tablet by mouth once a day as directed Metformin 500 Mg Tablet (Metformin) ..... Take 1 tablet by mouth twice a day as directed [facility] Electrophysiology:stable [facility] Electrophysiology: H er updated medication list for this problem includes: Losartan 100 Mg Tablet (Losartan) ..... Take 1 tablet by mouth once a day as directed Metformin 500 Mg Tablet (Metformin) ..... Take 1 tablet by mouth twice a day as directed [facility] Electrophysiology: H er updated medication list for this problem includes: Lipitor 10 Mg Tablet (Atorvastatin) ..... 1 tablet once a day [facility] Electrophysiology:Di scussion of benefits for remote patient monitoring took place. Patient gives consent for remote monitoring of blood pressure. BP today: 176/86 P rior BP: 157/78 (05/27/2023) [facility] Electrophysiology: s /p ablation on 05/17 w ill stop Amiodarone, start Diltiazem 90 mg BID [facility] Electrophysiology:im proving, she is on amiodarone, will check PFT for baseline [facility] Electrophysiology: H er updated medication list for this problem includes: Lipitor 10 Mg Tablet (Atorvastatin) ..... 1 tablet once a day [facility] Electrophysiology: H er updated medication list for this problem includes: Losartan 100 Mg Tablet (Losartan) ..... Take 1 tablet by mouth once a day as directed Metformin 500 Mg Tablet (Metformin) ..... Take 1 tablet by mouth twice a day as directed [facility] Electrophysiology: B P today: 157/78 P rior BP: 220/102 (04/22/2023) Her updated medication list for this problem includes: Furosemide 40 Mg Tablet (Furosemide) ..... Take 1 tablet by mouth once a day as directed Losartan 100 Mg Tablet (Losartan) ..... Take 1 tablet by mouth once a day as directed Hydralazine 25 Mg Tablet (Hydralazine) [facility] Electrophysiology: p alpitations have improved since her procedure [facility] Electrophysiology:s/p ablation o n 05/17 [facility] Electrophysiology:s/p ablation o n 05/17 [facility] Electrophysiology:Pt is here following discharge from hospital yesterday after arriving due to palpitations. She had covid-19 last month and did not feel well. She also contracted another virus beginning of March. She noticed palpitations occuring after these viral infections. She reports no syncope or CP today. Dc from hospital Creatinine 1.0 eGRFR more than 60. Normal liver function. EKG showed SVT and AVRCT R ecommend pt undergo ablation given her frequent symptomatic episodes of arrythmias [facility] Electrophysiology: H er updated medication list for this problem includes: Lipitor 10 Mg Tablet (Atorvastatin) ..... 1 tablet once a day Edison Broussard Electrophysiology:Pt is here following discharge from hospital yesterday after arriving due to palpitations. She had covid-19 last month and did not feel well. She also contracted another virus beginning of March. She noticed palpitations occuring after these viral infections. She reports no syncope or CP today. Dc from hospital Creatinine 1.0 eGRFR more than 60. Normal liver function. EKG showed SVT and AVRCT Edison Broussard Electrophysiology: Her updated medication list for this problem includes: Aspir-81 Tablet Delayed Release (Aspirin tbec) ..... 1 tab daily Metformin Hcl 500 Mg Oral Tablet (Metformin hcl) ..... Tk 1 t po bid utd Losartan Potassium 100 Mg Oral Tablet (Losartan potassium) ..... Tk 1 t po qd utd Edison Broussard Electrophysiology: B P today: 220/102 P rior BP: 189/91 (06/20/2018) Her updated medication list for this problem includes: Aspir-81 Tablet Delayed Release (Aspirin tbec) ..... 1 tab daily Metoprolol Tartrate 100 Mg Oral Tablet (Metoprolol tartrate) ..... Tk 1 t po bid Losartan Potassium 100 Mg Oral Tablet (Losartan potassium) ..... Tk 1 t po qd utd Furosemide 40 Mg Oral Tablet (Furosemide) ..... Tk 1 t po qd utd Edison Larsoninari Cardiology:Not seen on CXR 02/08. Lamine Connell MD Cardiology Lamine Connell MD Cardiology Lamine Connell MD Cardiology Lamine Connell MD Cardiology Lamine Connell MD Cardiology Lamine Connell MD Cardiology Lamine Connell MD Cardiology:Will try and exercise more, lose weight and watch salt. BP at home runs high normal. No med changes at this time. Lamine Connell MD Date Name Carotid Duplex Bilat eral Aorta Duplex Ultraso und DLCO - 48208 FRC - 15239 FVC - 10722 PARTIAL THROMBOPLAST IN TIME, ACTIVATED BASIC METABOLIC PANE L W/EGFR CBC (INCLUDES DIFF/P LT) PROTHROMBIN TIME WIT H INR Holter Monitor 48 hr Stress Routine Sleep Study Home CT Chest w/ contrast Schedule Followup HISTORY OF PROCEDURES Procedure Date Procedure Name Provider Procedure Notes S tatus EKG Balta fu MD completed FVC / MVV - 13120 Balta weathers MD completed SpO2 w/o 6min walk/titration Balta Vasquez MD completed DLCO - 45792 Balta fu MD completed Schedule Followup Balta weathers MD scehdule fu with Dr. Vasquez on Sunday 05/27 1 PM at [facility] active EKG Lamine Connell MD complete d EKG Lamine Connell MD complete d SNOMED-CT: [id number] Current Medications Documented Lamine Connell MD completed
--- OUTSIDE RECORDS SUMMARY | 2024-11-19 17:18 | XMS_ITS | Clinical Summary ---
Author Organization [facility] Address [address] [place] [address] Care Team Providers Care Tamping Machine Operator Road Forms Name Role Phone Fiona Guzman MD Primary Care Provider [phone] Source Comments [facility],non-owned Affiliates and Associated Physician Practices is amultiple site organization consisting of ambulatory clinics and hospital sitesin [place], [place], [place] and [place]. This disclosure is being madepursuant to the Care Everywhere program and may not contain all information available regarding this patient. Last updated 18.[facility] Allergies Active Allergy Reactions Criticality Noted Date Comments Codeine Unknown 07/01/2024 Medications * Be aware that medications may not be up to date on this document. Alwaysverify current medications with the patient. Eliquis 5 MG tablet Take 1 (one) tablet by mouth 2 times daily 4 Active calcitriol (Rocaltrol) 0.25 MCG capsule TAKE 1 CAPSULE BY MOUTH EVERY WEEK IN THE MORNING 4 Active Vitamin D3 (Cholecalcifero l) 50 MCG (1999) capsule Take 1 (one) capsule by mouth every morning 4 Active dilTIAZem (Cardizem) 90 MG tablet Take 1 (one) tablet by mouth 2 times daily 4 Active furosemide (Lasix) 40 MG tablet Take 1 (one) tablet by mouth once daily 4 Active hydrALAZINE (Apresoline) 50 MG tablet Take 1 (one) tablet by mouth 3 times daily 4 Active isosorbide mononitrate CR 24hr (Imdur) 30 MG tablet Take 1 (one) tablet by mouth once daily as directed. 4 Active losartan (Cozaar) 100 MG tablet Take 1 (one) tablet by mouth once daily 4 Active Magnesium Oxide -Mg Supplement 400 (240 Mg) MG Take 1 (one) tablet by mouth 2 times daily 4 Active metFORMIN (Glucophage) 500 MG tablet Take 1 (one) tablet by mouth 2 times daily 4 Active atorvastatin (Lipitor) 20 MG tablet Take 1 (one) tablet by mouth at bedtime Active acetaminophen (Tylenol) 500 MG tablet Take 1 (one) tablet by mouth every 4 hours as needed for Fever or Pain Maximum allowable Acetaminophen amount = 4 Grams (4000 mg) / 24 hours. Active Active Problems Problem Noted Date Diagnosed Date Thyroid nodule 07/01/2024 Multinodular thyroid 07/01/2024 Type 2 diabetes mellitus, wi thout long-term current use of insulin 07/01/2024 Class 3 severe obesity in adult 07/01/2024 Primary hypertension 07/01/2024 Hyperlipidemia 07/01/2024 Osteoarthritis 07/01/2024 Carotid bruit 10/07/2023 Pulmonary nodule 05/03/2017 Family History Medical History Relation Name Comments Arthritis - Osteo Brother COPD - Chronic Obstructive Pulmonary Disease Brother Arthritis - Osteo Father Cancer - Lung Father Cancer - Prostate Father Hypertension Father Arthritis - Osteo Mother Dementia Mother Arthritis - Osteo Sister Hypertension Sister Renal Disease Sister CVA Neg Hx Diabetes - Type 1 Neg Hx Diabetes - Type 2 Neg Hx Thyroid Disease Neg Hx Relation Name Status Comments Brother Alive Father Mother Sister Alive Social History Tobacco Use Types Packs/Day Years Used Date Smoking Tobacco: Never Smokeless Tobacco: Never Tobacco Cessation:Counseling Given: Not Answered Alcohol Use Standard Drinks/Week Comments Never 0 (1 standard drink = 0.6 oz pur e alcohol) Comments Unknown Sex and Gender Information Value Date Recorded Sex Assigned at Not on file Legal Sex Female 9:21 AM CDT Gender Identity Not on file Sexual Orientation Not on file Last Filed Vital Signs Vital Sign Reading Time Taken Comments Blood Pressure 163/73 07/12/2024 1:45 PM NETWORK PROGRAM MANAGER Pulse 82 07/12/2024 1:45 PM NETWORK PROGRAM MANAGER Temperature - - Respiratory Rate - - Oxygen Saturation 93% 07/12/2024 1:45 PM NETWORK PROGRAM MANAGER Inhaled Oxygen Concentration - - Weight 107.5 kg (237 lb) 07/12/2024 1:45 PM NETWORK PROGRAM MANAGER Height - - Body Mass Index - - Plan of Treatment Upcoming Encounters Date Type Department Care Team (Late st Contact Info) Description 01/09/2025 2:00 PM CDT Office Visit [facility] - Endocrinology [address] [place] [address], [facility] [place] [address] Rangel Dominguez MD [address] [place] [address] [place] [address] Health Maintenance Due Date Last Done Comments BONE DENSITY TESTING 1955 COLOGUARD (AGES 45-75) - COLON CA SCREENING 1956 COLON MONITORING 1956 COLONOSCOPY - COLON CA SCREENING 1956 CT COLONOGRAPHY - COLON CA SCREENING 1955 Colorectal Cancer Screening 1956 FIT - COLON CA SCREENING 1956 FLEX SIG - COLON CA SCREENING 1956 MAMMOGRAM 1956 HEPATITIS C SCREENING 06/25/1974 DIABETES-SERUM CREATININE 1974 DTAP/TDAP/TD VACCINES (1 - Tdap) 1975 PNEUMOCOCCAL VACCINE 50+ (1 of 2 - PCV) 1975 ZOSTER VACCINE (1 of 2) 2006 COVID-19 VACCINE ( - season) 2024 06/23/2022, 08/03/2021, 10/24/2020, Additional history exists DIABETES RETINOPATHY SCREENING 07/01/2024 DIABETES-FOOT EXAM WITH MONOFILAMENT 07/01/2024 DIABETES-HGB A1C 07/01/2024 DEPRESSION SCREENING 07/25/2024 DIABETES - URINE PROTEIN SCREENING 07/25/2024 MEDICARE AWV CALENDAR YEAR 2024 INFLUENZA VACCINE (Season Ended) 2025 Respiratory Syncytial Virus (RSV) Vaccine Pt: or over 60 yrs (1 - 1-dose 75+ series) 2031 HEPATITIS B VACCINE Aged Out No longe r eligible based on patient's age to complete this topic HIB VACCINE Aged Out No longer eligi ble based on patient's age to complete this topic HPV VACCINE Aged Out No longer eligi ble based on patient's age to complete this topic MENINGOCOCCAL (Group B) VACCINE SHARED DECISION-MAKING Aged Out No longer eligible based on patient's age to complete this topic MENINGOCOCCAL GROUPS A/C/Y/W VACCINE Aged Out No longer eligible based on patient's age to complete this topic Insurance [facility] MANAGED MEDICARE ADV Care Teams Tamping Machine Operator Road Forms Relationship Specialty Start Date End Date Fiona Guzman MD [address] [place] [phone] PCP - General Emergency Medicine 07/02/24
--- OUTSIDE RECORDS SUMMARY | 2024-11-19 17:18 | XMS_ITS | Clinical Summary ---
Author Organization [facility] Address [address] [place] [address] Care Team Providers Care Folder Tier Name Role Phone Fiona Guzman MD Primary Care Provider [phone] Allergies Active Allergy Reactions Criticality Noted Date [...] SVT (supraventricular tachycardia) 05/17/2023 Supraventricular tachycardia 04/22/2023 Encounters Date Type Department Care Team Description 10/03/2024 2:30 PM CDT - 10/03/2024 11:59 PM CDT Hospital Encounter [facility] Cardiac Testing [address] [place] [address] Cardiac arrhythmia, unspecified cardiac arrhythmia type Discharge Disposition: Discharge to home or self care 08/28/2024 2:16 PM CLIENT RESOURCE SPECIALIST - 08/28/2024 11:59 PM CLIENT RESOURCE SPECIALIST Hospital Encounter [facility] [place] [address] [place] [address] Renal artery stenosis Discharge Disposition: Discharge to home or self care from Last 3 Months Surgical History Surgery Date Site/Laterality Comments PARTIAL HYSTERECTOMY Medical History Medical History Date Comments Arrhythmia Hypertension Asthma Type 2 diabetes mellitus (HCC) Social History Tobacco Use Types Packs/Day Years [...] on file Legal Sex Female 12:22 PM CLIENT RESOURCE SPECIALIST Gender Identity Not on file Sexual Orientation Not on file Obstetrics History Last Filed Vital Signs Vital Sign Reading [...] 05/17/2023 11:04 AM CDT Plan of Treatment Health Maintenance Due Date Last Done Comments Breast Cancer Screening-Mammogram 1955 Colon Cancer Screening-Colonoscopy 1956 Depression Screening 1956 Hepatitis C Screening 1956 Osteoporosis Screening-Bone Density Scan 1956 DTaP/Tdap/Td Vaccine (1 - Tdap) 1967 Hepatitis B Screening 1974 Pneumococcal vaccine 65+ (1 of 1 - PCV) 2006 Zoster Vaccine (1 of 2) 2006 Well Visit 65+ 2021 Covid-19 Vaccine ( season) 2024 08/03/2021, 10/24/2020, 10/06/2020 Fall Risk Assessment 05/18/2024 05/18/2023 Influenza Vaccine (Season Ended) 2025 Procedures Procedure Name Priority Date/Time Associated Diagnosis Comments HOLTER MONITOR 24 HR Routine 10/03/2024 2:42 PM CDT Cardiac arrhythmia, unspecified cardiac arrhythmia type MRA RENAL ARTERIES Schedule Routine, Read Routine (OP Routine) 08/28/2024 3:20 PM CLIENT RESOURCE SPECIALIST Renal artery stenosis from Last 3 Months Results * 24 HR Holter Monitor (10/03/2024 2:42 PM CDT) Anatomical Region Laterality Modality Electrocardiogra phy Narrative 10/11/2024 2:43 PM CDT Patient Id: Radha Gupta is a 69 y.o. female. MR#: [id number] Date of the procedure: October 03, 2024 [...] symptoms Copy to Fiona Guzman MD 10/11/2024 us Fiona Guzman MD CV CARDIAC SERVICES PROCEDUR ES Final Result * MRA Renal Arteries (08/28/2024 3:20 PM CLIENT RESOURCE SPECIALIST) Anatomical Region Laterality Modality Body N/A Magnetic Resonan ce 08/28/2024 3:36 PM CLIENT RESOURCE SPECIALIST Addenda Addendum by Temo Nuno DO on 09/17/2024 9:13 AM CLIENT RESOURCE SPECIALIST ADDENDUM: This addendum report supersedes the original report dated 08/28/24 Reason of study should read: High blood pressure, atherosclerosis, diabetic END OF ADDENDUM REPORT THIS IS AN ELECTRONICALLY VERIFIED FINAL REPORT 09/17/2024 9:13 AM Addendum Electronically signed by Temo Nuno D.O. PS Report ID: [id number] Reading Location: [id number] Narrative 08/28/2024 3:41 PM CLIENT RESOURCE SPECIALIST EXAM DESCRIPTION: MRA RENAL ARTERIES REASON FOR [...] signed by Temo SANTAMARIA T: Report ID: [id number] Reading Location: [id number] Procedure Note Temo Nuno DO - 08/28/2024 EXAM DESCRIPTION: MRA RENAL [...] Temo Nuno D.O. PS T: Report ID: [id number] Reading Location: [place] [address] Jony Santa MD IM MRI PROCEDURES Edite d Result - Final from Last 3 Months Insurance [facility] MEDICARE [facility] Address: [address] [address] Care Teams Folder Tier Relationship Specialty Start Date End Date Fiona Guzman MD [address] [place] [address] PCP - General Emergency Medicine 10/01/24
[2024-11-19 18:19] VITALS: BP 153/68; PULSE 76; RESP 15; O2SAT 100
--- NOTE | 2024-11-19 18:38 | PC.NURSE ---
this RN attempts to get blood work on pt with no success.
--- NOTE | 2024-11-19 19:50 | PC.NURSE ---
Patient's family member to triage desk stating the patient is passing out. BRITTANI Alaniz assisting patient to lay down on bench. Charge made aware and moving patient to a room.
[2024-11-19 19:52] LABS: Glucose Point of Care 103 mg/dl (65-105)
[2024-11-19 20:03] VITALS: BP 137/59; PULSE 72; RESP 18; O2SAT 99
--- OUTSIDE RECORDS SUMMARY | 2024-11-19 20:12 | XMS_ITS | CONTINUITY OF CARE DOCUMENT ---
Author Name andriy ashraf Address Unknown Organization [facility] Address [address] [place] [address] Phone [phone] Care Team Providers Care Silk Soaker Name Role Phone Pedro TATUM, Balta Unavailable NORY MCKEE MD Unavailable [phone] NORY MCKEE MD Unavailable [phone] PROBLEMS Condition Status Date Provider Notes Atrial [...] In-person encounter Office Visit Balta Vasquez MD [facility] Carotid bruit - In-person encounter Office Visit Balta Vasquez MD [facility] - In-person encounter Office Visit Balta Vasquez MD [facility] Essential hypertensionShortness of breath - In-person encounter Office Visit Balta Vasquez MD [facility] Personal history of COVID-19PalpitationSVT - In-person encounter Office Visit Lamine Connell MD [facility] - In-person encounter Office Visit Lamine Connell MD [facility] HyperlipidemiaPulmonary noduleChest painDiabetes, Type 2Hypertension VITAL [...] pulse rate 83 /min Nuvia Gruenenfe [facility] weight E&M 238 [lb_av] Nuvia Gruenenfe [facility] height E&M 62 [in_i] Nuvia Gruenenfe [facility] Body Mass Index (Ratio) 43.53 kg/m2 Rohan Dentzai blood pressure, diastolic 78 mm[Hg] Marcelnia nkLogic blood pressure, systolic 157 mm[Hg] Grace kLogic blood pressure, cuff size regular Fa [facility] blood pressure, diastolic 78 mm[Hg] Fa [facility] blood pressure, systolic 157 mm[Hg] [facility], oximetry 97 % [facility] pulse rate 78 /min [facility] respiratory rate E&M 16 /min Amie iniguez weight E&M 238 [lb_av] [facility] height E&M 62 [in_i] [facility] weight E&M 241 [lb_av] Mari vargas Body Mass Index (Ratio) 44.07 kg/m2 David Vasquez MD blood pressure, cuff size regular Ke rri Wildueirina blood pressure, diastolic 102 mm[Hg] Ke rri Gruenenfsebastian blood pressure, systolic 220 mm[Hg] Natalya ri Beto oxygen saturation, oximetry 98 % Nuvia Margaret respiratory rate E&M 12 /min Nuvia isaacs pulse rate 94 /min Nuvia Veranenfsheba [facility] weight E&M 241 [lb_av] Nuvia Veranenfe [facility] height E&M 62 [in_i] Nuvia Veranenfsheba [facility] Body Mass Index (Ratio) 45.76 kg/m2 [...] Connell MD blood pressure, resting Yes [facility] blood pressure, diastolic 100 mm[Hg] Ki omid [place] blood pressure, systolic 140 mm[Hg] Dante leon [place] oxygen saturation, oximetry 98 % [facility] respiratory rate E&M 16 /min [facility] pulse rate 75 /min [facility] weight E&M 253 [lb_av] [facility] height E&M 62 [in_i] [facility] ALLERGIES Allergy Name Onset Date Reaction [...] Single Miguelina lackey: 1 O ccupation: ATT supply clerk Smoking History: P atient has never smoked. 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 Lamine Connell MD social history reviewed E&M revi ewed - no changes required Lamine Connell MD smoking status Never smoker [place] Myriam crowley FAMILY HISTORY Family Member Condition Father Family History of Pr ostate Cancer: Father Family History of Miryam ng Cancer: Father Family History of Ao rtic Aneurysm: INSURANCE PROVIDERS Payer name Policy type / Coverage type [place] red libertarian ID [facility] Other [employer]ARP MEDICARE ADVANTAGE [facility] (O) Medicare [id number] ADVANCE DIRECTIVES Name Date DISCUSSED - NO DECISION MADE TREATMENT PLAN Date Name Performer [id number],Miguelinai alessandra, she is on amiodarone, will check PFT for baseline [facility] [id number],C, H er updated medication list for this problem includes: Lipitor 10 Mg Tablet (Atorvastatin) ..... 1 tablet once a day [facility] [id number],C, H er updated medication list for this problem includes: Losartan 100 Mg Tablet (Losartan) ..... Take 1 tablet by mouth once a day as directed Metformin 500 Mg Tablet (Metformin) ..... Take 1 tablet by mouth twice a day as directed [facility] [id number],C, B P today: 157/78 P rior BP: 220/102 (04/22/2023) Her updated medication list for this problem includes: Furosemide 40 Mg Tablet (Furosemide) ..... Take 1 tablet by mouth once a day as directed Losartan 100 Mg Tablet (Losartan) ..... Take 1 tablet by mouth once a day as directed Hydralazine 25 Mg Tablet (Hydralazine) [facility] [id number],C, palpitations have improved since her procedure [facility] [id number],C,s/p ablation on 05/17 [facility] [id number],C,s/p ablation on 05/17 [facility] [id number],W,P t is here following discharge from hospital [...] frequent symptomatic episodes of arrythmias Rohan Albarado [id number],S, H er updated medication list for this problem includes: Lipitor 10 Mg Tablet (Atorvastatin) ..... 1 tablet once a day Edison Broussard [id number],W,P t is here following discharge from hospital [...] EKG showed SVT and AVRCT Edison Broussard [id number],S, Her updated medication list for this problem includes: Aspir-81 Tablet Delayed Release (Aspirin tbec) ..... 1 tab daily Metformin Hcl 500 Mg Oral Tablet (Metformin hcl) ..... Tk 1 t po bid utd Losartan Potassium 100 Mg Oral Tablet (Losartan potassium) ..... Tk 1 t po qd utd Edison Broussard [id number],S, B P today: 220/102 P rior BP: [...] as directed Hydralazine 25 Mg Tablet (Hydralazine) [facility] Electrophysiology: H er updated medication list for this problem includes: Diltiazem Hcl 90 Mg Tablet (Diltiazem hcl) ..... Take 1 tablet by mouth twice a day Isosorbide Mononitrate 30 Mg Tablet Extended Release 24 Hr (Isosorbide mononitrate) [facility] Electrophysiology: H er updated medication list for this problem includes: Diltiazem Hcl 90 Mg Tablet (Diltiazem hcl) ..... Take 1 tablet by mouth twice a day Furosemide 40 Mg Tablet (Furosemide) ..... Take 1 tablet by mouth once a day as directed Losartan 100 Mg Tablet (Losartan) ..... Take 1 tablet by mouth once a day as directed [facility] Electrophysiology: H er updated medication list for this problem includes: Lipitor 10 Mg Tablet (Atorvastatin) ..... 1 tablet once a day [facility] Electrophysiology: H er updated medication list for this problem includes: Losartan 100 Mg Tablet (Losartan) ..... Take 1 tablet by mouth once a day as directed Metformin 500 Mg Tablet (Metformin) ..... Take 1 tablet by mouth twice a day as directed [facility] Electrophysiology:stable [facility] Electrophysiology: H er updated medication list for this problem includes: Losartan 100 Mg Tablet (Losartan) ..... Take 1 tablet by mouth once a day as directed Metformin 500 Mg Tablet (Metformin) ..... Take 1 tablet by mouth twice a day as directed [facility] Electrophysiology: H er updated medication list for this problem includes: Lipitor 10 Mg Tablet (Atorvastatin) ..... 1 tablet once a day [facility] Electrophysiology:Di scussion of benefits for remote patient monitoring took place. Patient gives consent for remote monitoring of blood pressure. BP today: 176/86 P rior BP: 157/78 (05/27/2023) [facility] Electrophysiology: s /p ablation on 05/17 w ill stop Amiodarone, start Diltiazem 90 mg [facility]ID [facility]:im proving, she is on amiodarone, will check PFT for baseline [facility] Electrophysiology: H er updated medication list for this problem includes: Lipitor 10 Mg Tablet (Atorvastatin) ..... 1 tablet once a day [facility] Electrophysiology: H er updated medication list for this problem includes: Losartan 100 Mg Tablet (Losartan) ..... Take 1 tablet by mouth once a day as directed Metformin 500 Mg Tablet (Metformin) ..... Take 1 tablet by mouth twice a day as directed [facility] Electrophysiology: B P today: 157/78 P rior BP: 220/102 (04/22/2023) Her updated medication list for this problem includes: Furosemide 40 Mg Tablet (Furosemide) ..... Take 1 tablet by mouth once a day as directed Losartan 100 Mg Tablet (Losartan) ..... Take 1 tablet by mouth once a day as directed Hydralazine 25 Mg Tablet (Hydralazine) [facility] Electrophysiology: p alpitations have improved since her procedure [facility] Electrophysiology:s/p ablation o n 05/17 [facility] Electrophysiology:s/p ablation o n 05/17 [facility] Electrophysiology:Pt is here following discharge from hospital [...] given her frequent symptomatic episodes of arrythmias [facility] Electrophysiology: H er updated medication list for [...] MD Cardiology Lamine Connell MD Cardiology Lamine oCnnell MD Cardiology Lamine Connell MD Cardiology Lamine Connell MD Cardiology:Will try and exercise more, lose weight and watch salt. BP at home runs high normal. No med changes at this time. Lamine Connell MD Date Name Carotid Duplex Bilat eral Aorta Duplex Ultraso und DLCO - 21304 FRC - 15998 FVC - 25492 PARTIAL THROMBOPLAST IN TIME, ACTIVATED BASIC METABOLIC PANE L W/EGFR CBC (INCLUDES DIFF/P LT) PROTHROMBIN TIME WIT H INR Holter Monitor 48 hr Stress Routine Sleep Study Home CT Chest w/ contrast Schedule Followup HISTORY OF PROCEDURES Procedure Date Procedure Name Provider Procedure Notes S tatus EKG Balta fu MD completed FVC / MVV - 26928 Balta weathers MD completed SpO2 w/o 6min walk/titration Balta Vasquez MD completed DLCO - 41504 Balta fu MD completed Schedule Followup Balta weathers MD scehdule fu with Dr. Vasquez on Sunday 05/27 1 PM at [facility] active EKG Lamine Connell MD complete d EKG Lamine Connell MD complete d SNOMED-CT: [id number] Current Medications Documented Lamine Connell MD completed
--- OUTSIDE RECORDS SUMMARY | 2024-11-19 20:12 | XMS_ITS | Clinical Summary ---
Author Organization [facility] Address [address] [place] [address] Care Team Providers Care Incident Handler Name Role Phone Fiona Guzman MD Primary Care Provider [phone] Source Comments [facility] [employer],non-owned Affiliates and Associated Physician Practices is amultiple site organization consisting of ambulatory clinics and hospital sitesin [place], [place], [place] and [place]. This disclosure is being madepursuant to the Care Everywhere program and may not contain all information available regarding this patient. Last updated 18.[facility] [employer] Allergies Active Allergy Reactions Criticality Noted Date [...] Comments Blood Pressure 163/73 07/12/2024 1:45 PM COIL WINDING MACHINES SET UP MECHANIC Pulse 82 07/12/2024 1:45 PM COIL WINDING MACHINES SET UP MECHANIC Temperature - - Respiratory Rate - - Oxygen Saturation 93% 07/12/2024 1:45 PM COIL WINDING MACHINES SET UP MECHANIC Inhaled Oxygen Concentration - - Weight 107.5 kg (237 lb) 07/12/2024 1:45 PM COIL WINDING MACHINES SET UP MECHANIC Height - - Body Mass Index - - Plan of Treatment Upcoming Encounters Date Type Department Care Team (Late st Contact Info) Description 01/09/2025 2:00 PM CDT Office Visit [facility] - Endocrinology [address] [place] [address], [facility] [place] [address] Rangel Dominguez MD [address] [place] [address] [place] [address] Health Maintenance Due Date Last Done Comments [...] patient's age to complete this topic Insurance [facility] [place] [address] Care Teams Incident Handler Relationship Specialty Start Date End Date Fiona Guzman MD [address] [place] [phone] PCP - General Emergency Medicine 07/02/24
--- OUTSIDE RECORDS SUMMARY | 2024-11-19 20:12 | XMS_ITS | Referral Summary ---
Author Organization [facility] Address [address] [place] [address] Care Team Providers Care Electronic Integrated Systems Mechanic Name Role Phone Fiona Guzman MD Primary Care Provider [phone] Encounters Date Type Department Care Team Description 10/03/2024 2:30 PM CDT - 10/03/2024 11:59 PM CDT Hospital Encounter [facility] Cardiac Testing [address] [place] [address] Cardiac arrhythmia, unspecified cardiac arrhythmia type Discharge Disposition: Discharge to home or self care 08/28/2024 2:16 PM SUPPORT ANALYST - 08/28/2024 11:59 PM SUPPORT ANALYST Hospital Encounter [facility] MRI [address] [place] [address] Renal artery stenosis Discharge Disposition: Discharge to [...] on file Legal Sex Female 12:22 PM SUPPORT ANALYST Gender Identity Not on file Sexual Orientation [...] Read Routine (OP Routine) 08/28/2024 3:20 PM SUPPORT ANALYST Renal artery stenosis from Last 3 Months Results * 24 HR Holter Monitor (10/03/2024 2:42 PM CDT) Anatomical Region Laterality Modality Electrocardiogra phy Narrative 10/11/2024 2:43 PM CDT Patient Id: Radha Gupta is a 69 y.o. female. MR#: [id number] Date of the procedure: October 03, 2024 [...] * MRA Renal Arteries (08/28/2024 3:20 PM SUPPORT ANALYST) Anatomical Region Laterality Modality Body N/A Magnetic Resonan ce 08/28/2024 3:36 PM SUPPORT ANALYST Addenda Addendum by Temo Nuno DO on 09/17/2024 9:13 AM SUPPORT ANALYST ADDENDUM: This addendum report supersedes the original report dated 08/28/24 Reason of study should read: High blood pressure, atherosclerosis, diabetic END OF ADDENDUM REPORT THIS IS AN ELECTRONICALLY VERIFIED FINAL REPORT 09/17/2024 9:13 AM Addendum Electronically signed by Temo Nuno D.O. PS Report ID: [id number] Reading Location: [id number] 08/28/2024 3:41 PM SUPPORT ANALYST EXAM DESCRIPTION: MRA RENAL ARTERIES REASON FOR [...] signed by Temo SANTAMARIA T: Report ID: [id number] Reading Location: [place] [address] Procedure Note Temo Nuno, DO - 08/28/2024 [...] Temo Nuno D.O. PS T: Report ID: [id number] Reading Location: [place] [address] Jony Santa MD IMG MRI PROCEDURES Edite d Result - Final from Last 3 Months Insurance [facility] [place] [address] Care Teams Electronic Integrated Systems Mechanic Relationship Specialty Start Date End Date Fiona Guzman MD [address] [place] [phone] PCP - General Emergency Medicine 10/01/24
--- OUTSIDE RECORDS SUMMARY | 2024-11-19 20:12 | XMS_ITS | Clinical Summary ---
Author Organization [facility] Address [address] [place] [address] Care Team Providers Care Plastic Boat Buffer Name Role Phone Fiona Guzman MD Primary Care Provider + [phone] Allergies Active Allergy Reactions Criticality Noted Date [...] - 10/03/2024 11:59 PM CDT Hospital Encounter [facility] Cardiac Testing [address] [place] [address] Cardiac arrhythmia, unspecified cardiac arrhythmia type Discharge Disposition: Discharge to home or self care 08/28/2024 2:16 PM CLOCK AND WATCH HANDS MOUNTER - 08/28/2024 11:59 PM CLOCK AND WATCH HANDS MOUNTER Hospital Encounter [facility] MRI [address] [place] [address] Renal artery stenosis Discharge Disposition: Discharge to [...] on file Legal Sex Female 12:22 PM CLOCK AND WATCH HANDS MOUNTER Gender Identity Not on file Sexual Orientation [...] Read Routine (OP Routine) 08/28/2024 3:20 PM CLOCK AND WATCH HANDS MOUNTER Renal artery stenosis from Last 3 Months Results * 24 HR Holter Monitor (10/03/2024 2:42 PM CDT) Anatomical Region Laterality Modality Electrocardiogra phy Narrative 10/11/2024 2:43 PM CDT Patient Id: Radha Gupta is a 69 y.o. female. MR#: [id number] Date of the procedure: October 03, 2024 [...] * MRA Renal Arteries (08/28/2024 3:20 PM CLOCK AND WATCH HANDS MOUNTER) Anatomical Region Laterality Modality Body N/A Magnetic Resonan ce 08/28/2024 3:36 PM CLOCK AND WATCH HANDS MOUNTER Addenda Addendum by Temo Nuno DO on 09/17/2024 9:13 AM CLOCK AND WATCH HANDS MOUNTER ADDENDUM: This addendum report supersedes the original report dated 08/28/24 Reason of study should read: High blood pressure, atherosclerosis, diabetic END OF ADDENDUM REPORT THIS IS AN ELECTRONICALLY VERIFIED FINAL REPORT 09/17/2024 9:13 AM Addendum Electronically signed by Temo Nuno D.O. PS Report ID: [id number] Reading Location: [id number] Narrative 08/28/2024 3:41 PM CLOCK AND WATCH HANDS MOUNTER EXAM DESCRIPTION: MRA RENAL ARTERIES REASON FOR [...] signed by Temo SANTAMARIA T: Report ID: [id number] Reading Location: [id number] Procedure Note Temo Nuno DO - 08/28/2024 [...] Temo Nuno D.O. PS T: Report ID: [id number] Reading Location: [place] [address] Jony Santa MD IM MRI PROCEDURES Edite d Result - Final from Last 3 Months Insurance [facility] MEDICARE ADVANTAGE Care Teams Plastic Boat Buffer Relationship Specialty Start Date End Date Fiona Guzman MD [address] [place] [id number] PCP - General Emergency Medicine 10/01/24
[2024-11-19 20:30] LABS: Glucose Point of Care 107 mg/dl (65-105)
[2024-11-19] MEDS: ACETAMINOPHEN 500 MG TABLET 1000 MG PO (20:39)
[2024-11-19] MEDS: LACTATED RINGERS 1,000 ML 999 ML IV CONT (20:39)
[2024-11-19 20:42] LABS: Basophils Percent Auto 0.3 % (0.2-1.2); Eosinophils Absolute Auto 0.1 K/mm3 (0-0.3); Eosinophils Percent Auto 0.8 % (0-4.4); Hematocrit 33.8 % (37.0-47.0); Immature Granulocyte Absolute 0.01 K/mm3 (0.00-0.031); Immature Granulocyte Percent A 0.2 % (0-0.5); Lymphocytes Absolute Auto 1.56 K/mm3 (0.9-3.2); Mean Corpuscular HGB Conc 29.6 g/dl (32-36); Mean Corpuscular Hemoglobin 22.7 pg (26-34); Mean Corpuscular Volume 76.6 fl (80-100); Mean Platelet Volume 9.8 fl (7.4-10.4); Monocytes Absolute Auto 0.5 K/mm3 (0.1-0.6); Neutrophils Absolute Auto 3.9 K/mm3 (1.3-6.7); Neutrophils Percent Auto 64.7 % (45.5-73.1); Platelet Count Result 233 k/mm3 (150-375); Red Blood Count 4.41 M/mm3 (4.2-5.4); Red Cell Distribution Width 17.6 % (11.5-14.5)
[2024-11-19 21:10] LABS: Anisocytosis 2+; Hypochromasia 1+; Platelet Estimate Adequate (Adequate)
[2024-11-19 21:11] LABS: Band Neutrophils Percent 0 % (0-6); Schistocytes None Seen
[2024-11-19 21:17] VITALS: BP 125/51; PULSE 77; RESP 18; O2SAT 99
[2024-11-19 21:43] LABS: Influenza A QL RT-PCR Negative (Negative); Influenza B QL RT-PCR Negative (Negative); RSV RNA, RT-PCR Negative (Negative); SARS-CoV-2 RNA PCR Negative (Negative)
[2024-11-19 22:01] VITALS: BP 130/66; BP 131/71; BP 132/64; PULSE 68; PULSE 69; PULSE 73
[2024-11-19 22:11] LABS: Alanine Aminotransferase 17 U/L (6-35); Albumin Level 3.8 g/dL (3.5-5.1); Alkaline Phosphatase 104 U/L (38-126); Anion Gap 11 mmol/L (4-12); Aspartate Amino Transferase 28 U/L (14-36); Bilirubin,Total 0.6 mg/dL (0.2-1.3); Blood Urea Nitrogen 22 mg/dL (7-17); Calcium 8.5 mg/dL (8.4-10.2); Carbon Dioxide 20 mmol/L (22-30); Chloride 106 mmol/L (98-107); Estimated CRCL calculation 50 ml/min; Estimated Glomerular Filt Rate 49; Glucose 88 mg/dL (65-110); Magnesium 2.2 mg/dL (1.6-2.3); Potassium 4.2 mmol/L (3.4-5.0); Sodium 137 mmol/L (137-145)
[2024-11-19 22:13] LABS: Troponin I < 0.012 ng/mL (0.000-0.034)
[2024-11-19 23:32] VITALS: BP 114/70; PULSE 89; RESP 18; O2SAT 100
== END 2024-11-19 23:33 | disposition home or self-care (01) ==
PROVIDERS: Physician Assistant; Emergency Provider Emergency Medicine
DX: R55 Syncope and collapse (principal); S63.502A Unspecified sprain of left wrist, initial encounter; Z20.822 Contact with and (suspected) exposure to COVID-19; E11.9 Type 2 diabetes mellitus without complications; Z79.01 Long term (current) use of anticoagulants; Z79.899 Other long term (current) drug therapy; Z79.85 Long-term (current) use of injectable non-insulin antidiabetic drugs; W01.0XXA Fall on same level from slipping, tripping and stumbling without subsequent striking against object, initial encounter
CPT/HCPCS: 36415; 71046; 73110; 80053; 82948; 83735; 84443; 84484; 85025; 87637; 93005; 96360; 99284; A4565; A9270; J7120

== ENCOUNTER 2024-11-29 14:39 | Outpatient (CLI) | payer MEDICARE, SELFPAY ==
--- NOTE | ~2024-11-29 | XR_ITS ---
Left wrist Technique: PA, oblique, lateral, and ulnar deviation views were obtained. Clinical History: Pain Findings: No acute fracture or dislocation is seen. Osseous alignment is anatomic. Joint spaces are p reserved. Soft tissues are unremarkable. Impression: Unremarkable left wrist radiographs. Reviewed, dictated and finalized at location . Impression: Unremarkable left wrist radiographs.
--- OUTSIDE RECORDS SUMMARY | 2024-11-29 14:44 | XMS_ITS | Clinical Summary ---
Author Organization [facility] Address [address] [place] [phone] Care Team Providers Care Heating And Refrigeration Inspector Name Role Phone Fiona Guzman MD Primary Care Provider [phone] Allergies Active Allergy Reactions Criticality Noted Date [...] - 10/03/2024 11:59 PM CDT Hospital Encounter [facility] Cardiac Testing [address] [place] [address] Cardiac arrhythmia, unspecified cardiac arrhythmia type Discharge [...] on file Legal Sex Female 12:22 PM AUTOMATIC CLIPPER Gender Identity Not on file Sexual Orientation [...] CDT Cardiac arrhythmia, unspecified cardiac arrhythmia type from Last 3 Months Results * 24 HR Holter Monitor (10/03/2024 2:42 PM CDT) Anatomical Region Laterality Modality Electrocardiogra phy Narrative 10/11/2024 2:43 PM CDT Patient Id: Radha Gupta is a 69 y.o. female. MR#: [id number] Date of the procedure: October 03, 2024 [...] CV CARDIAC SERVICES PROCEDUR ES Final Result from Last 3 Months Insurance [employer] MEDICARE ADVANTAGE Care Teams Heating And Refrigeration Inspector Relationship Specialty Start Date End Date Fiona Guzman MD [address] [place] [id number] PCP - General Emergency Medicine 10/01/24
--- OUTSIDE RECORDS SUMMARY | 2024-11-29 14:44 | XMS_ITS | Clinical Summary ---
Author Organization [facility] Address [address] [place] [address] Care Team Providers Care Lobsterman Name Role Phone Fiona Guzman MD Primary Care Provider Source Comments [facility],non-owned Affiliates and Associated Physician Practices is amultiple site organization consisting of ambulatory clinics and hospital sitesin [place], [place], [place] and [place]. This disclosure is being madepursuant to the Care Everywhere program and may not contain all information available regarding this patient. Last updated 18.[facility] Allergies Active Allergy Reactions Criticality Noted Date [...] Comments Blood Pressure 163/73 07/12/2024 1:45 PM METALLURGICAL LABORATORY ASSISTANT Pulse 82 07/12/2024 1:45 PM METALLURGICAL LABORATORY ASSISTANT Temperature - - Respiratory Rate - - Oxygen Saturation 93% 07/12/2024 1:45 PM METALLURGICAL LABORATORY ASSISTANT Inhaled Oxygen Concentration - - Weight 107.5 kg (237 lb) 07/12/2024 1:45 PM METALLURGICAL LABORATORY ASSISTANT Height - - Body Mass Index - - Plan of Treatment Upcoming Encounters Date Type Department Care Team (Late st Contact Info) Description 01/09/2025 2:00 PM CDT Office Visit [facility] - Endocrinology [address] [place] [address], [facility] [place] [address] Rangel Dominguez MD [address] [place] [address] [place] [address] Health Maintenance Due Date Last Done Comments [...] patient's age to complete this topic Insurance [facility] MANAGED MEDICARE ADV Care Teams Lobsterman Relationship Specialty Start Date End Date Fiona Guzman MD [address] [place] [phone] PCP - General Emergency Medicine 07/02/24
--- OUTSIDE RECORDS SUMMARY | 2024-11-29 14:44 | XMS_ITS | Referral Summary ---
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 female. MR#: [id number] Date of the procedure: October 03, 2024 [...] Final Result from Last 3 Months Insurance [facility] MEDICARE ADVANTAGE Care Teams Retirement Village Manager Relationship Specialty Start Date End Date Fiona Guzman MD [address] [place] [address] PCP - General Emergency Medicine 10/01/24
--- OUTSIDE RECORDS SUMMARY | 2024-11-29 14:45 | XMS_ITS | CONTINUITY OF CARE DOCUMENT ---
Author Name andriy ashraf Address Unknown Organization [facility] Address [address] [place] [address] Phone [phone] Care Team Providers Care Radial Drill Press Operator For Plastic Name Role Phone Pedro TATUM, Balta Unavailable [phone] NORY MCKEE MD Unavailable [phone] NORY MCKEE MD Unavailable [phone] PROBLEMS Condition Status Date Provider Notes Atrial [...] In-person encounter Office Visit Balta Vasquez MD [facility] Carotid bruit - In-person encounter Office Visit Balta Vasquez MD [facility] - In-person encounter Office Visit Balta Vasquez MD [facility] Essential hypertensionShortness of breath - In-person encounter Office Visit Balta Vasquez MD [facility] Personal history of COVID-19PalpitationSVT - In-person encounter Office Visit Lamine Connell MD [facility] - In-person encounter Office Visit Lamine Connell MD [facility] HyperlipidemiaPulmonary noduleChest painDiabetes, Type 2Hypertension VITAL [...] hamenenfelder pulse rate 83 /min Nuvia Gruenenfe [facility] weight E&M 238 [lb_av] Nuvia Gruenenfe [facility] height E&M 62 [in_i] Nuvia Gruenenfe [facility] Body Mass Index (Ratio) 43.53 kg/m2 Rohan Dentzai blood pressure, diastolic 78 mm[Hg] Marcelina nkLogic blood pressure, systolic 157 mm[Hg] Grace kLogic blood pressure, cuff size regular Fa [facility] blood pressure, diastolic 78 mm[Hg] Fa [facility] blood pressure, systolic 157 mm[Hg] Miguel [facility] oxygen saturation, oximetry 97 % [facility] pulse rate 78 /min [facility] respiratory rate E&M 16 /min Amie iniguez weight E&M 238 [lb_av] [facility] height E&M 62 [in_i] [facility] weight E&M 241 [lb_av] Mari vargas Body Mass Index (Ratio) 44.07 kg/m2 David Vasquez MD blood pressure, cuff size regular Ke rri Wildueirina blood pressure, diastolic 102 mm[Hg] Ke rri Gruenenfsebastian blood pressure, systolic 220 mm[Hg] Natalya ri Beto oxygen saturation, oximetry 98 % Nuvia Margaret respiratory rate E&M 12 /min Nuvia isaacs pulse rate 94 /min Nuvia Veranenfsheba [facility] weight E&M 241 [lb_av] Nuvia Veranenfe [facility] height E&M 62 [in_i] Nuvia Veranenfsheba [facility] Body Mass Index (Ratio) 45.76 kg/m2 Brendon [...] Connell MD blood pressure, resting Yes Pito [facility] blood pressure, diastolic 100 mm[Hg] Ki omid Ismay blood pressure, systolic 140 mm[Hg] Dante leon Ismay oxygen saturation, oximetry 98 % [facility] respiratory rate E&M 16 /min [facility] pulse rate 75 /min [facility] weight E&M 253 [lb_av] [facility] height E&M 62 [in_i] [facility] ALLERGIES Allergy Name Onset Date Reaction Criticality [...] Single 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 Lamine Connell MD social history reviewed E&M revi ewed - no changes required Lamine Connell MD smoking status Never smoker Mantador Myriam crowley FAMILY HISTORY Family Member Condition Father Family History of Pr ostate Cancer: Father Family History of Miryam ng Cancer: Father Family History of Ao rtic Aneurysm: INSURANCE PROVIDERS Payer name Policy type / Coverage type [place] [employer] party ID [facility] Other [employer] MEDICARE ADVANTAGE [facility] (O) Medicare [id number] ADVANCE DIRECTIVES Name Date DISCUSSED - NO DECISION MADE TREATMENT PLAN Date Name Performer [id number],Miguelinai alessandra, she is on amiodarone, will check PFT for baseline [facility] [id number],C, H er updated medication list for this problem includes: Lipitor 10 Mg Tablet (Atorvastatin) ..... 1 tablet once a day [facility] [id number],C, H er updated medication list for this problem includes: Losartan 100 Mg Tablet (Losartan) ..... Take 1 tablet by mouth once a day as directed Metformin 500 Mg Tablet (Metformin) ..... Take 1 tablet by mouth twice a day as directed [facility] [id number],C, B P today: 157/78 P rior BP: 220/102 (04/22/2023) Her updated medication list for this problem includes: Furosemide 40 Mg Tablet (Furosemide) ..... Take 1 tablet by mouth once a day as directed Losartan 100 Mg Tablet (Losartan) ..... Take 1 tablet by mouth once a day as directed Hydralazine 25 Mg Tablet (Hydralazine) [facility] [id number],C, palpitations have improved since her procedure [facility] [id number],C,s/p ablation on 05/17 [facility] [id number],C,s/p ablation on 05/17 [facility] [id number],W,P t is here following discharge from hospital [...] frequent symptomatic episodes of arrythmias Rohan Albarado [id number],S, H er updated medication list for this problem includes: Lipitor 10 Mg Tablet (Atorvastatin) ..... 1 tablet once a day Edison Broussard [id number],W,P t is here following discharge from hospital [...] EKG showed SVT and AVRCT Edison Broussard [id number],S, Her updated medication list for this problem includes: Aspir-81 Tablet Delayed Release (Aspirin tbec) ..... 1 tab daily Metformin Hcl 500 Mg Oral Tablet (Metformin hcl) ..... Tk 1 t po bid utd Losartan Potassium 100 Mg Oral Tablet (Losartan potassium) ..... Tk 1 t po qd utd Edison Broussard [id number],S, B P today: 220/102 P rior BP: [...] as directed Hydralazine 25 Mg Tablet (Hydralazine) [facility] Electrophysiology: H er updated medication list for this problem includes: Diltiazem Hcl 90 Mg Tablet (Diltiazem hcl) ..... Take 1 tablet by mouth twice a day Isosorbide Mononitrate 30 Mg Tablet Extended Release 24 Hr (Isosorbide mononitrate) [facility] Electrophysiology: H er updated medication list for this problem includes: Diltiazem Hcl 90 Mg Tablet (Diltiazem hcl) ..... Take 1 tablet by mouth twice a day Furosemide 40 Mg Tablet (Furosemide) ..... Take 1 tablet by mouth once a day as directed Losartan 100 Mg Tablet (Losartan) ..... Take 1 tablet by mouth once a day as directed [facility] Electrophysiology: H er updated medication list for this problem includes: Lipitor 10 Mg Tablet (Atorvastatin) ..... 1 tablet once a day [facility] Electrophysiology: H er updated medication list for this problem includes: Losartan 100 Mg Tablet (Losartan) ..... Take 1 tablet by mouth once a day as directed Metformin 500 Mg Tablet (Metformin) ..... Take 1 tablet by mouth twice a day as directed [facility] Electrophysiology:stable [facility] Electrophysiology: H er updated medication list for this problem includes: Losartan 100 Mg Tablet (Losartan) ..... Take 1 tablet by mouth once a day as directed Metformin 500 Mg Tablet (Metformin) ..... Take 1 tablet by mouth twice a day as directed [facility] Electrophysiology: H er updated medication list for this problem includes: Lipitor 10 Mg Tablet (Atorvastatin) ..... 1 tablet once a day [facility] Electrophysiology:Di scussion of benefits for remote patient monitoring took place. Patient gives consent for remote monitoring of blood pressure. BP today: 176/86 P rior BP: 157/78 (05/27/2023) [facility] Electrophysiology: s /p ablation on 05/17 w ill stop Amiodarone, start Diltiazem 90 mg BID [facility] Elect[facility]:im proving, she is on amiodarone, will check PFT for baseline [facility] Electrophysiology: H er updated medication list for this problem includes: Lipitor 10 Mg Tablet (Atorvastatin) ..... 1 tablet once a day [facility] Electrophysiology: H er updated medication list for this problem includes: Losartan 100 Mg Tablet (Losartan) ..... Take 1 tablet by mouth once a day as directed Metformin 500 Mg Tablet (Metformin) ..... Take 1 tablet by mouth twice a day as directed [facility] Electrophysiology: B P today: 157/78 P rior BP: 220/102 (04/22/2023) Her updated medication list for this problem includes: Furosemide 40 Mg Tablet (Furosemide) ..... Take 1 tablet by mouth once a day as directed Losartan 100 Mg Tablet (Losartan) ..... Take 1 tablet by mouth once a day as directed Hydralazine 25 Mg Tablet (Hydralazine) [facility] Electrophysiology: p alpitations have improved since her procedure [facility] Electrophysiology:s/p ablation o n 05/17 [facility] Electrophysiology:s/p ablation o n 05/17 [facility] Electrophysiology:Pt is here following discharge from [...] given her frequent symptomatic episodes of arrythmias [facility] Electrophysiology: H er updated medication list [...] Tk 1 t po qd utd Edison Larosninari Cardiology:Not seen on CXR 02/08. Lamine Connell MD Cardiology Lamine Connell MD Cardiology Lamine Connell MD Cardiology Lamine Connell MD Cardiology Lamine Connell MD Cardiology Lamine Connell MD Cardiology Lamine Conenll MD Cardiology:Will try and exercise more, lose weight and watch salt. BP at home runs high normal. No med changes at this time. Lamine Connell MD Date Name Carotid Duplex Bilat eral Aorta Duplex Ultraso und DLCO - 80823 FRC - 22114 FVC - 03644 PARTIAL THROMBOPLAST IN TIME, ACTIVATED BASIC METABOLIC PANE L W/EGFR CBC (INCLUDES DIFF/P LT) PROTHROMBIN TIME WIT H INR Holter Monitor 48 hr Stress Routine Sleep Study Home CT Chest w/ contrast Schedule Followup HISTORY OF PROCEDURES Procedure Date Procedure Name Provider Procedure Notes S tatus EKG Balta fu MD completed FVC / MVV - 83392 Balta weathers MD completed SpO2 w/o 6min walk/titration Balta Vasquez MD completed DLCO - 39252 Balta fu MD completed Schedule Followup Balta weathers MD scehdule fu with Dr. Vasquez on Sunday 05/27 1 PM at [facility] active EKG Lamine Connell MD complete d EKG Lamine Connell MD complete d SNOMED-CT: [id number] Current Medications Documented Lamine Connell MD completed
--- OUTSIDE RECORDS SUMMARY | 2024-11-29 14:45 | XMS_ITS | Data Portability ---
Author Organization [facility] Address [address] [place] [address] Care Team Providers Care House Worker General Name Role Phone FIONA GUZMAN Primary Care Provider Unavailabl e Assessment No assessment recorded. Plan of Treatment Reminders Order Date Submit Date Provider Last Modified By Organization Details Last Modified Time Details Appointments ANY 15 2024 04:15P Deborah Guzman MD Not available Not available Not available ANY 2024 01:00P Deborah Guzman MD Not available Not available Not available ANY 30 2024 01:00P Deborah Santa MD Not available Not available Not available Lab CMP, serum or plasma 2024 025 SINAI ESTRADA, Katerina Vargas, [facility] [address], [place], [address], 10/30/2024 13:26:08 albumin/c reatinine , mass ratio, urine 2024 025 SINAI ESTRADA, Katerina Vargas, [address], [place], [address], 10/30/2024 13:26:05 CBC 2024 025 SINAI ESTRADA, Katerina Vargas, [facility] [address], [place], [address], 10/30/2024 13:26:10 lipid panel, serum 2024 025 SINAI ESTRADA, Katerina Vargas, [address], [place], [address], 10/30/2024 13:26:07 HbA1c (hemoglob in A1c), blood 2023 024 [facility], [address] [facility] [address] [facility] [address], [address], [place], [address], 10/24/2024 10:50:04 lipid panel, serum 2023 024 [facility], [address], [address], [place], [address], 10/24/2024 10:50:04 CMP, serum or plasma 2023 024 [facility], [address], [address], [place], [address], 10/24/2024 10:50:04 Referral None recorded. Procedures None recorded. Surgeries None recorded. Imaging holter monitor - history of atrial flutter, ectopy-- 24 HOUR HOLTER [address] [place], [address], 10/11/2024 15:44:49 Medication Orders Ozempic 0.25 mg or 0.5 mg (2 mg/3 mL) subcutane ous pen injector 2024 025 [facility][id number], [address], [place], [id number], 11/28/2024 17:54:37 Ozempic 0.25 mg or 0.5 mg (2 mg/3 mL) subcutane ous pen injector 2024 025 [facility] #[id number], [address], [place], [id number], 11/28/2024 17:54:47 isosorbid e mononitra te ER 30 mg tablet,ex tended release 24 hr 2023 [facility] #[id number], [address], [place], [id number], 07/09/2024 18:36:09 metformin 500 mg tablet 2023 024 [facility] #[id number], [address], [place], [id number], 11/23/2024 12:24:41 furosemid e 40 mg tablet 2023 024 [facility] #05448, [address], [place], [id number], 07/09/2024 18:36:10 hydralazi ne 100 mg tablet 2023 025 [facility] #[id number], [address], [place], [id number], 10/22/2024 14:49:41 losartan 100 mg tablet 2023 024 [facility] #52703, [address], [place], [id number], 07/09/2024 18:36:18 Eliquis 5 mg tablet 2023 024 [facility] #[id number], [address], [place], [id number], 07/09/2024 18:36:08 magnesium oxide 400 mg (241.3 mg magnesium ) tablet 2023 024 [facility] #[id number], [address], [place], [id number], 07/09/2024 18:36:07 Patient TargetsNo targets recorded. Patient InstructionsNo instructions recorded. Reason for Referral None Reported. Results Created Date Observation Date Name Description Value Unit Range Abnormal Flag Note LastModifiedBy Organization Detail LastModifiedTime 10/30/19 25 10/30/2024 ALBUM IN/CR EATIN INE RATIO ,URIN E creatinine, urine 40.8 mg/dL notest ab. Not Available [facility] ([facility]) [address] [place], [address], 10/30/2024 13:26:05 10/30/19 25 10/30/2024 ALBUM IN/CR EATIN INE RATIO ,URIN E albumin, urine <3.0 ug/mL notest ab. Not Available [facility] ([facility]) [address] [place], [address], 10/30/2024 13:26:05 10/30/19 25 10/30/2024 ALBUM IN/CR EATIN INE RATIO ,URIN E alb/creat ratio <7 Judy l: 0 - 29 Moder ately incre ased: 30 - 300 Sever melina incre ased: >300 Not Available [facility] ([facility]) [address] [place], [address], 10/30/2024 13:26:05 10/30/19 25 10/30/2024 LIPID PANEL cholesterol, total 132 mg/dL 100-19 9 Not Available [facility] ([facility]) [address] [place], [address], 10/30/2024 13:26:07 10/30/19 25 10/30/2024 LIPID PANEL triglyceride s 41 mg/dL 0-149 Not Available [facility] ([facility]) [address] [place], [address], 10/30/2024 13:26:07 10/30/19 25 10/30/2024 LIPID PANEL HDL cholesterol 66 mg/dL >39 Not Available [facility] ([facility]) [address] [place], [address], 10/30/2024 13:26:07 10/30/19 25 10/30/2024 LIPID PANEL VLDL cholesterol rosie 10 mg/dL 5-40 Not Available [facility] ([facility]) [address] [place], [address], 10/30/2024 13:26:07 10/30/19 25 10/30/2024 LIPID PANEL LDL chol calc ([facility]) 56 mg/dL 0-99 Not Available [facility] ([facility]) [address] [place], [address], 10/30/2024 13:26:07 10/30/19 25 10/30/2024 COMP. METAB OLIC PANEL (14) glucose 86 mg/dL 70-99 Not Available [facility] ([facility]) [address] [place], [address], 10/30/2024 13:26:08 10/30/19 25 10/30/2024 COMP. METAB OLIC PANEL (14) BUN 23 mg/dL 8-27 Not Available [facility] ([facility]) [address] [place], [address], 10/30/2024 13:26:08 10/30/19 25 10/30/2024 COMP. METAB OLIC PANEL (14) creatinine 1.02 mg/dL 0.57-1 .00 above high normal Not Available [facility] ([facility]) [address] [place], [address], 10/30/2024 13:26:08 10/30/19 25 10/30/2024 COMP. METAB OLIC PANEL (14) eGFR 60 mL/mi n/1.7 3 >59 Not Available [facility] ([facility]) [address] [place], [address], 10/30/2024 13:26:08 10/30/19 25 10/30/2024 COMP. METAB OLIC PANEL (14) BUN/creatini ne ratio 23 12-28 Not Available [facility] ([facility]) [address] [place], [address], 10/30/2024 13:26:08 10/30/19 25 10/30/2024 COMP. METAB OLIC PANEL (14) sodium 141 mmol/ L 134-14 4 Not Available [facility] ([facility]) [address] [place], [address], 10/30/2024 13:26:08 10/30/19 25 10/30/2024 COMP. METAB OLIC PANEL (14) potassium 4.8 mmol/ L 3.5-5. 2 Not Available [facility] ([facility]) [address] [place], [address], 10/30/2024 13:26:08 10/30/19 25 10/30/2024 COMP. METAB OLIC PANEL (14) chloride 105 mmol/ L 96-106 Not Available [facility] ([facility]) [address] [place], [address], 10/30/2024 13:26:08 10/30/19 25 10/30/2024 COMP. METAB OLIC PANEL (14) carbon dioxide, total 25 mmol/ L 20-29 Not Available [facility] ([facility]) [address] [place], [address], 10/30/2024 13:26:08 10/30/19 25 10/30/2024 COMP. METAB OLIC PANEL (14) calcium 9.2 mg/dL 8.7-10 .3 Not Available [facility] ([facility]) [address] [place], [address], 10/30/2024 13:26:08 10/30/19 25 10/30/2024 COMP. METAB OLIC PANEL (14) protein, total 6.7 g/dL 6.0-8. 5 Not Available [facility] ([facility]) [address] [place], [address], 10/30/2024 13:26:08 10/30/19 25 10/30/2024 COMP. METAB OLIC PANEL (14) albumin 4.1 g/dL 3.9-4. 9 Not Available [facility] ([facility]) [address] [facility], [place], [address], 10/30/2024 13:26:08 10/30/19 25 10/30/2024 COMP. METAB OLIC PANEL (14) globulin, total 2.6 g/dL 1.5-4. 5 Not Available [facility] ([facility]) [address] [place], [address], 10/30/2024 13:26:08 10/30/19 25 10/30/2024 COMP. METAB OLIC PANEL (14) bilirubin, total 0.4 mg/dL 0.0-1. 2 Not Available [facility] ([facility]) [address] [facility], [place], [address], 10/30/2024 13:26:08 10/30/19 25 10/30/2024 COMP. METAB OLIC PANEL (14) alkaline phosphatase 104 IU/L 44-121 Not Available [facility] ([facility]) [address] [facility], [place], [address], 10/30/2024 13:26:08 10/30/19 25 10/30/2024 COMP. METAB OLIC PANEL (14) AST (SGOT) 14 IU/L 0-40 Not Available [facility] ([facility]) [address] [place], [address], 10/30/2024 13:26:08 10/30/19 25 10/30/2024 COMP. METAB OLIC PANEL (14) ALT (SGPT) 13 IU/L 0-32 Not Available [facility] ([facility]) [address] [facility], [place], [address], 10/30/2024 13:26:08 10/30/19 25 10/30/2024 CBC, PLATE LET, NO DIFFE RENTI AL WBC 4.9 x10e3 /uL 3.4-10 .8 Not Available [facility] ([facility]) [address] [facility], [place], [address], 10/30/2024 13:26:10 10/30/19 25 10/30/2024 CBC, PLATE LET, NO DIFFE RENTI AL RBC 4.36 x10e6 /uL 3.77-5 .28 Not Available [facility] ([facility]) [address] [place], [address], 10/30/2024 13:26:10 10/30/19 25 10/30/2024 CBC, PLATE LET, NO DIFFE RENTI AL hemoglobin 9.9 g/dL 11.1-1 5.9 below low normal Not Available [facility] ([facility]) [address] [facility], [place], [address], 10/30/2024 13:26:10 10/30/19 25 10/30/2024 CBC, PLATE LET, NO DIFFE RENTI AL hematocrit 32.6 % 34.0-4 6.6 below low normal Not Available [facility] ([facility]) [address] [place], [address], 10/30/2024 13:26:10 10/30/19 25 10/30/2024 CBC, PLATE LET, NO DIFFE RENTI AL MCV 75 fL 79-97 below low normal Not Available [facility] ([facility]) [address] [place], [address], 10/30/2024 13:26:10 10/30/19 25 10/30/2024 CBC, PLATE LET, NO DIFFE RENTI AL MCH 22.7 pg 26.6-3 3.0 below low normal Not Available [facility] ([facility]) [address] [place], [address], 10/30/2024 13:26:10 10/30/19 25 10/30/2024 CBC, PLATE LET, NO DIFFE RENTI AL MCHC 30.4 g/dL 31.5-3 5.7 below low normal Not Available [facility] ([facility]) [address] [facility], [place], [address], 10/30/2024 13:26:10 10/30/19 25 10/30/2024 CBC, PLATE LET, NO DIFFE RENTI AL RDW 16.6 % 11.7-1 5.4 above high normal Not Available [facility] ([facility]) [address] [facility], [place], [address], 10/30/2024 13:26:10 10/30/19 25 10/30/2024 CBC, PLATE LET, NO DIFFE RENTI AL platelets 265 x10e3 /uL 150-45 0 Not Available [facility] ([facility]) [address] [facility], [place], [address], 10/30/2024 13:26:10 06/19/20 24 02/10/2024 US, renal [facility] [address] [place], [address], 07/12/2024 10:52:33 10/12/19 25 10/03/2024 jenn r monit or No observ ation record ed. [facility] [address], [place], [address], 10/19/2024 14:05:33 Result Notes None recorded. Problems Name Problem SNOMED Code Status Onset Date Resolution Date Notes Provider Name and Address Organization Details Recorded Time Benign essential hypertension 1721451 Active 2019 Obie Ahumada MD Attn: Claudia g,[address], [place], [address], [place] [facility] 0 14:20:12 Type 2 diabetes mellitus without complication 033484406 Active 2019 Obie Ahumada MD Attn: Claudia avelar,[address], [place], [address], [place] [facility] 0 14:20:13 Essential hypertension 21772373 Active Kavita Levy MD Attn: Claudia g,[address], [place], [address], [place] [facility] 6 17:20:58 Systolic hypertension 13146340 Active Kavita Levy MD Attn: Claudia g,[address], [place], [address], [place] [facility] 6 17:20:58 Notes:Some problems listed i n Documents: #[id number], #[id number] could not be added to this patient's chart. Please review these documents and add these problems to the patient's chart manually as needed. Problem Notes None recorded. Procedures Surgical History Date Name Laterality Status Provider Name and Address Organization Details Recorded Time 3 catheter ablation of tissue of heart completed Ne Tracy [place] [facility] 11/08/2023 14:29:01 cataract surgery completed Ne Tracy [place] [facility] 01/10/2024 14:41:42 Imaging Results Imaging Date Name Status LastModified by Organiz ation Details LastModified Time 02/10/2024 US, renal completed [email or web address] [address] [place], [address], 07/12/2024 10:52:33 10/03/2024 holter monitor completed [facility] [address] [place], [address], 10/19/2024 14:05:33 Procedure Notes None recorded. Medical Equipment None Reported. Allergies Allergen ID Allergen Name Allergen Category Reaction Reaction Severity Criticality Documentation Date Start Date Code Code System Note Provider Name and Address Organization Details Recorded Time 133713 codeine medicatio n Not available Not available Not available 01/24/2019 2670 [facility] Cindy Guzman MA null, [place] - [facility] 9 16:12:01 Medications Name Sig Start Date Stop Date Status Note LastModified by Organization Details LastModified Time Prescriptio n - Renewal 07/30 completed Not Available Not Available Not Available OneTouch Ultra Blue Test Strips Use to check fasting blood sugar once daily 2024 active Not Available Not Available Not Avai lable losartan 50 mg tablet Take 1 tablet every day by oral route as directed for 30 days. 04/26 completed Not Available Not Available Not Available furosemide 40 mg tablet TAKE 1 TABLET BY MOUTH EVERY DAY active Not Available Not Available No t Available metformin 500 mg tablet TAKE 1 TABLET BY MOUTH TWICE DAILY 11/23 completed Not Available Not Available Not Available atorvastati n 20 mg tablet TAKE 1 TABLET BY MOUTH EVERY DAY active Not Available Not Available No t Available cetirizine 10 mg tablet TAKE 1 TABLET BY MOUTH EVERY DAY 11/07 completed Not Available Not Available Not Available atorvastati n 10 mg tablet TAKE 1 TABLET BY MOUTH AFTER DAILY active Not Available Not Available No t Available lisinopril 20 mg-hydrochl orothiazide 12.5 mg tablet Take 1 tablet twice a day by oral route for 30 days. 05/17 completed Not Available Not Available Not Available azithromyci n 250 mg tablet 08/17 completed Not Available Not Available Not Available ibuprofen 800 mg tablet TAKE 1 TABLET BY MOUTH EVERY 8 HOURS NEEDED FOR PAIN. TAKE WITH FOOD 11/07 completed Not Available Not Available Not Available ofloxacin 0.3 % eye drops 02/13 completed Not Available Not Available Not Available metoprolol tartrate 100 mg tablet TAKE 1 TABLET BY MOUTH TWICE DAILY 11/07 completed Not Available Not Available Not Available amiodarone 200 mg tablet TAKE 1 TABLET BY MOUTH TWICE DAILY 11/07 completed Not Available Not Available Not Available naltrexone 50 mg tablet Take 1 tablet every day by oral route as directed for 30 days. 04/26 completed Not Available Not Available Not Available isosorbide mononitrate ER 30 mg tablet,exte nded release 24 hr TAKE 1 TABLET BY MOUTH EVERY DAY active Not Available Not Available No t Available clonidine HCl 0.3 mg tablet 08/26 completed Not Available Not Available Not Available Wellbutrin SR 150 mg tablet, 12 hr sustained-r elease Take 1 tablet twice a day by oral route as directed for 30 days. 04/26 completed Not Available Not Available Not Available hydralazine 25 mg tablet TAKE 1 TABLET BY MOUTH THREE TIMES DAILY 04/12 completed Not Available Not Available Not Available tramadol 50 mg tablet TAKE 1 TABLET BY MOUTH EVERY 8 HOURS NEEDED FOR PAIN 01/30 completed Not Available Not Available Not Available ketorolac 0.5 % eye drops 02/13 completed Not Available Not Available Not Available clonidine HCl 0.2 mg tablet TAKE 1 TABLET BY MOUTH TWICE DAILY 08/26 completed Not Available Not Available Not Available prednisolon e acetate 1 % eye drops,suspe nsion 11/07 completed Not Available Not Available Not Available magnesium oxide 400 mg (241.3 mg magnesium) tablet TAKE 1 TABLET BY MOUTH TWICE DAILY active Not Available Not Available No t Available ciprofloxac in 0.3 % eye drops 01/30 completed Not Available Not Available Not Available [employer] Ultra Test strips USE TO TEST BLOOD SUGAR ONCE DAILY active Not Available Not Available No t Available hydralazine 100 mg tablet Take 1 tablet 3 times a day by oral route as directed for 90 days. 10/22 completed Not Available Not Available Not Available diclofenac 0.1 % eye drops 01/30 completed Not Available Not Available Not Available aspirin 81 mg chewable tablet CHEW AND SWALLOW 1 TABLET BY MOUTH EVERY DAY AFTER A MEAL 11/07 completed Not Available Not Available Not Available hydralazine 50 mg tablet Take 1 tablet 3 times a day by oral route for 90 days. 2024 active Not Available Not Available Not Avai lable hydrochloro thiazide 25 mg tablet Take 1 tablet every day by oral route for 30 days. 08/26 completed Not Available Not Available Not Available furosemide 20 mg tablet TAKE 1 TABLET BY MOUTH EVERY DAY 04/26 completed Not Available Not Available Not Available ibuprofen 600 mg tablet TAKE 1 TABLET BY MOUTH EVERY 6 HOURS NEEDED FOR PAIN WITH FOOD 10/22 completed Not Available Not Available Not Available levofloxaci n 500 mg tablet 08/26 completed Not Available Not Available Not Available methylpredn isolone 4 mg tablets in a dose pack FOLLOW PACKAGE DIRECTION S 11/07 completed Not Available Not Available Not Available albuterol sulfate HFA 90 mcg/actuati on aerosol inhaler INHALE 2 TO 4 PUFFS BY MOUTH EVERY 4 TO 6 HOURS NEEDED 06/19 completed Not Available Not Available Not Available lisinopril 40 mg tablet TAKE 2 TABLETS BY MOUTH DAILY 05/17 completed Not Available Not Available Not Available losartan 100 mg tablet TAKE 1 TABLET BY MOUTH EVERY DAY active Not Available Not Available No t Available fluticasone propionate 50 mcg/actuati on nasal spray,suspe nsion SHAKE LIQUID AND USE 1 SPRAY IN EACH NOSTRIL TWICE DAILY 02/18 completed Not Available Not Available Not Available calcitriol 0.25 mcg capsule TAKE 1 CAPSULE BY MOUTH EVERY WEEK IN THE MORNING active Not Available Not Available No t Available amoxicillin 875 mg-potassiu m clavulanate 125 mg tablet TAKE 1 TABLET BY MOUTH TWICE DAILY 11/07 completed Not Available Not Available Not Available amoxicillin 500 mg-potassiu m clavulanate 125 mg tablet Take 1 tablet every 12 hours by oral route with meals for 10 days. 11/15 completed Not Available Not Available Not Available diltiazem 90 mg tablet TAKE 1 TABLET BY MOUTH TWICE DAILY active Not Available Not Available No t Available cyclobenzap rine 5 mg tablet TAKE 1 TABLET BY MOUTH EVERY 8 HOURS 10/22 completed Not Available Not Available Not Available BiDil 20 mg-37.5 mg tablet TAKE 1 TABLET BY MOUTH THREE TIMES DAILY DIRECTED 07/30 completed Not Available Not Available Not Available OneTouch Ultra2 Meter kit Use to check fasting blood sugar once daily 2024 active Not Available Not Available Not Avai lable peg 3350-electr olytes 236 gram-22.74 gram-6.74 gram-5.86 gram solution active Not Available Not Available Not Available cholecalcif anita (vitamin D3) 50 mcg (2,000 unit) capsule TAKE 1 CAPSULE BY MOUTH ONCE DAILY 10/22 completed Not Available Not Available Not Available Eliquis 5 mg tablet TAKE 1 TABLET BY MOUTH TWICE DAILY active Not Available Not Available No t Available ergocalcife rol (vitamin D2) 50 mcg (2,000 unit) capsule Take 1 capsule every day by oral route in the morning for 90 days. 2024 active Not Available Not Available Not Avai lable OneTouch Ultra2 Meter USE TO TEST BLOOD SUGAR ONCE DAILY active Not Available Not Available No t Available OneTouch Delica Plus Lancet 33 gauge USE TO TEST BLOOD SUGAR ONCE DAILY active Not Available Not Available No t Available Ozempic 0.25 mg or 0.5 mg (2 mg/3 mL) subcutaneou s pen injector INJECT 0.25 MG UNDER THE SKIN ONCE A WEEK FOR 4 WEEKS THEN INCREASE TO 0.5 MG ONCE A WEEK 11/28 completed Not Available Not Available Not Available Vitals Date Recorded Body height Body mass index (BMI) Body weight Oxygen saturation Oxygen saturation in Arterial blood by Pulse oximetry Heart rate Systolic blood pressure Diastolic blood pressure Provider Name and Address Organization Details Last Updated DateTime 4 157.48 cm 43.2 kg/m2 691408. 8 g 98 % 98 % 80 /min 128 mm[Hg] 70 mm[Hg] BRITTON Ng [facility] 4 15:47:14 Date Recorded Body height Body mass index (BMI) Body weight Oxygen saturation Oxygen saturation in Arterial blood by Pulse oximetry Heart rate Body temperature Systolic blood pressure Diastolic blood pressure Provider Name and Address Organization Details Last Updated DateTime 5 157.48 cm 43.5 kg/m2 885332. 98 g 98 % 98 % 78 /min 97.8 [degF] 118 mm[Hg] 76 mm[Hg] Ne Tracy MA [facility] 5 14:55:30 Date Recorded Body height Oxygen saturation Oxygen saturation in Arterial blood by Pulse oximetry Pain severity - 0-10 verbal numeric rating [Score] - Reported Heart rate Respiratory rate Body temperature Body mass index (BMI) Body weight Systolic blood pressure Diastolic blood pressure Provider Name and Address Organization Details Last Updated DateTime 5 157.48 cm 96 % 96 % 0 85 /min 18 /min 96.6 [degF] 44.4 kg/m2 006855. 51 g 163 mm[Hg] 80 mm[Hg] Shi Castañeda MA [facility] 5 14:02:19 Date Recorded Body height Systolic blood pressure Diastolic blood pressure Provider Name and Address Organization Details Last Updated DateTime 11/23/2024 157.48 cm 140 mm[Hg] 82 mm[Hg] Sandra Richardson MA [facility] 11/23/2024 12:51:23 Date Recorded Body temperature Body mass index (BMI) Body weight Oxygen saturation Oxygen saturation in Arterial blood by Pulse oximetry Heart rate Systolic blood pressure Diastolic blood pressure Provider Name and Address Organization Details Last Updated DateTime 5 96.9 [degF] 43.9 kg/m2 385917. 77 g 96 % 96 % 71 /min 160 mm[Hg] 82 mm[Hg] Naina Martinez [facility] 5 12:01:37 Social History Question Answer Notes LastModified by Organizat ion Details LastModified Time Tobacco Smoking Status Never Smoker RYLIE Barlow, [facility] 10/16/2014 15:43:23 Do You Have An Advance Directive? No Information not available 01/31/2024 What Is Your Level Of Alcohol Consumption? None Information not available 07/30/2021 Are You Blind Or Do You Have Difficulty Seeing? No Information not available 10/29/2021 What Is Your Level Of Caffeine Consumption? Occasional Information not available 10/29/2021 In The 14 Days Before Symptom Onset, Have You Had Close Contact With A Laboratory-confir med COVID-19 While That Case Was Ill? No Information not available 10/29/2021 In The 14 Days Before Symptom Onset, Have You Had Close Contact With A Person Who Is Under Investigation For COVID-19 While That Person Was Ill? No Information not available 10/29/2021 Have You Been To An Area Known To Be High Risk For COVID-19? Yes Information not available 10/29/2021 Are You Currently Employed? No Information not available 10/30/2024 Are You Deaf Or Do You Have Serious Difficulty Hearing? No Information not available 10/29/2021 What Type Of Diet Are You Following? REGULAR Information not available 10/29/2021 Do You Or Have You Ever Used E-cigarettes Or Vape? Never Used Electronic Cigarettes Information not available 11/16/2019 What Is The Highest Grade Or Level Of School You Have Completed Or The Highest Degree You Have Received? [id number] Information not available 10/30/2024 Are There Any Guns Present In Your Home? No Information not available 10/29/2021 Do You Have A Medical Power Of Retail Customer Service Specialist? No Information not available 01/31/2024 What Was The Date Of Your Most Recent Tobacco Screening? 11/23/2024 [email or web address] Information not available 11/23/2024 Do You Use Your Seat Belt Or Car Seat Routinely? Yes Information not available 10/29/2021 Do You Have Smoke And Carbon Monoxide Detectors In Your Home? Yes Information not available 10/29/2021 Do You Or Have You Ever Used Smokeless Tobacco? Never Used Smokeless Tobacco Information not available 11/16/2019 How Much Tobacco Do You Smoke? No Information not available 11/16/2019 Do You Use Any Illicit Or Recreational Drugs? No Information not available 10/29/2021 Do You Use Sunscreen Routinely? No Information not available 10/29/2021 Has Tobacco Cessation Counseling Been Provided? Yes [email or web address] Information not available 06/21/2022 On What Date Was Tobacco Cessation Counseling Provided? 11/23/2024 [email or web address] Information not available 11/23/2024 How Many Years Have You Smoked Tobacco? 0 Information not available 11/16/2019 Do You Or Have You Ever Used Any Other Forms Of Tobacco Or Nicotine? No Information not available 07/30/2021 Sex: Female Functional Status Question Answer Note LastModified by Organization D etails LastModified Time Are you able to care for yourself? Yes Information n ot available 10/29/2021 Mental Status None recorded. Family History Nothing Reported. Medical History No medical history recorded. Gynecological HistoryNo gynecological history recorded. Obstetrics History GPAL:G 0 P 0 0 0 0 Immunizations Vaccine Type Date Status Note Provider Nam e and Address Organization Details Recorded Time COVID-19, mRNA, LNP-S, PF, 30 mcg/0.3 mL dose 10/06/2020 completed Not Available [facility] 3 07:21:45 COVID-19, mRNA, LNP-S, PF, 30 mcg/0.3 mL dose 10/24/2020 completed Not Available [facility] 3 07:21:45 COVID-19, mRNA, LNP-S, PF, 30 mcg/0.3 mL dose 08/03/2021 completed Iraida Hall MA [place], [place] - [facility] 08/03/2021 15:23:15 COVID-19, mRNA, LNP-S, bivalent, PF, 30 mcg/0.3 mL dose 06/23/2022 completed Iraida Hall MA [place] - [facility] 06/23/2022 15:07:53 Past Encounters Encounter ID Performer Location Encounter Start Date Encounter Closed Date Diagnosis/Indication Diagnosis SNOMED-CT Code Diagnosis ICD10 Code Diagnosis Note [id number] MD Jersey Shelton (Adult Med) [address] [place] [address] [id number] 0 10/16/2014 15:25:36 10/16/2014 16:18:09 Essential hypertension [id number] MD Jersey Shelton (Adult Med) [address] [place] [address] [id number] 0 04/18/2015 16:24:45 04/22/2015 15:00:21 Systolic hypertension [id number] MD Jersey Shelton (Adult Med) [address] [place] [address] [phone] 0 06/24/2015 11:33:33 06/24/2015 13:10:30 Essential hypertension 70711798 I10 Screening mammography 24 039134 Z12.31 [id number] MD Jersey Shelton (Adult Med) [address] [place] [address] [phone] 0 02/17/2016 15:58:14 02/17/2016 17:19:42 Essential hypertension 68811033 I10 Systolic hypertension 56 821611 I10 [id number] MD Jersey Shelton (Adult Med) [address] [place] [address] [phone] 0 08/26/2016 14:11:32 08/26/2016 14:54:42 Systolic hypertension 70883885 I10 On examina tion - edema of legs 807972595 R60.0 Essential hypertension 72481358 I10 Edema of l ower extremity 076016103 R60.0 [id number] MD Jersey Shelton (Adult Med) [address] [place] [address] [id number] 0 02/23/2017 09:34:10 02/23/2017 11:35:25 Systolic hypertension 15401525 I10 Low salt diat, exercise and lose weight, will adjust her medication s. Morbid obesity 329790150 E66.01 Diet. exercise, lose weight, will try wellbutrin and naltrexone . ? Metabolic syndrom X Screening mammography 24 019083 Z12.31 Screening for malignant neoplasm of colon 893437606 Z12.11 Edema of l ower extremity 382219849 R60.0 Low salt diet, too hot of weather to wear stockings. Hypertensi ve heart disease 36582177 I11.9 Hypertensi ve, legs edema, sometime has shortness of breath and history of elevated BNP. Hyperglycemia 10722353 R 73.9 [id number] Kavita Levy MD [facility] (Adult Med) [address] [place] [address] [phone] 04/26/2017 16:23:03 04/26/2017 18:24:32 Pain of shoulder region 70799194 M25.512 Resolved.L ef tside. Essential hypertension 05720933 I10 Well controlled . recheck BP today in sitting position, right arm with adult big cuff the reading was 140/78 mmHG. Will continue low salt diet and refills of medication s. Systolic hypertension 56 628233 I10 Low salt diat, exercise and lose weight, will adjust her medication s. Edema of l ower extremity 732271617 R60.0 Low salt diet, too hot of weather to wear stockings. Today she has no edema tody, but will maintain the water pill. Dyslipidemia 115423542 E 78.5 Low saturated fat diet, exercise and lose weight. Morbid obesity 301691741 E66.01 Diet, exercise and lose weight . Type 2 viviana betes mellitus without complication 521408609 E11.9 Administra tion of influenza vaccine 81590088 Z23 Patient refuses. [id number] MD Jersey Shelton (Adult Med) [address] [place] [address] [phone] 0 08/15/2017 15:28:00 08/15/2017 16:35:00 Type 2 diabetes mellitus 42015570 E11.9 Diabetic diet, exercise and keep the weight down. Office F/U in 2 months and do the fasting bloodtest prior to that.hD EYE EX. IN june 2017 AND WAS TOLD THAT SHE HAS CATARACTS BUT NO RETINOPATH Y. Edema of l ower extremity 958319530 R60.0 Low salt diet, too hot of weather to wear stockings. Today she has no edema tody, but will maintain the water pill. Systolic hypertension 56 962810 I10 Low salt diat, exercise and lose weight, will adjust her medication s. Type 2 viviana betes mellitus without complication 182443724 E11.9 Dyslipidemia 322558553 E 78.5 Low saturated fat diet, exercise and lose weight. [id number] Kavita Levy MD [facility] (Adult Med) [address] [place] [address] [phone] 0 02/13/2018 16:36:15 02/14/2018 10:04:21 Type 2 diabetes mellitus 92235293 E11.9 Diabetic diet, exercise and keep the weight down. Office F/U in 2 months and do the fasting bloodtest prior to that.hD EYE EX. IN june 2017 AND WAS TOLD THAT SHE HAS CATARACTS BUT NO RETINOPATH Y. HgA1C is 5.8% today 02-13-2018 . Patient informed. Type 2 viviana betes mellitus without complication 689644914 E11.9 Essential hypertension 90471483 I10 Well controlled . recheck BP today in sitting position, right arm with adult big cuff the reading was 140/78 mmHG. Will continue low salt diet and refills of medication s. 130/70 mmhg 02-13-2018 . 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 Edema of l ower extremity 779669150 R60.0 Low salt diet, too hot of weather to wear stockings. Today she has no edema tody, but will maintain the water pill. Dyslipidemia 721059240 E 78.5 Low saturated fat diet, exercise and lose weight. Screening mammography 24 896069 Z12.31 Screening for malignant neoplasm of cervix 486182047 Z12.4 Screening colonoscopy 44 2261436 Z12.11 She had unremarkab le colonoscop y ex. about 6 years ago. Morbid obesity 636450391 E66.01 Diet, exercise and lose weight . [id number] [facility] [address] [place] [address] [phone] 0 08/17/2018 11:51:36 08/18/2018 12:10:39 Essential hypertension 76416574 I10 Well controlled . recheck BP today in sitting position, right arm with adult big cuff the reading was 140/78 mmHG. Will continue low salt diet and refills of medication s. 130/70 mmhg 02-13-2018 . Edema of olman bustos extremity 256558929 R60.0 Low salt diet, too hot of weather to wear stockings. Today she has no edema tody, but will maintain the water pill. Systolic hypertension 56 221890 I10 Low salt diat, exercise and lose weight, will adjust her medication s. Type 2 viviana betes mellitus 44004399 E11.9 Diabetic diet, exercise and keep the weight down. Office F/U in 2 months and do the fasting bloodtest prior to that.hD EYE EX. IN june 2017 AND WAS TOLD THAT SHE HAS CATARACTS BUT NO RETINOPATH Y. HgA1C is 5.8% today 02-13-2018 . Patient informed. 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 Type 2 viviana betes mellitus without complication 547307358 E11.9 Blood sugar is 76 mg%. [id number] Kavita Levy MD [facility] (Adult Med) [address] [place] [address] [id number] 0 01/24/2019 15:33:57 01/24/2019 16:35:34 Essential hypertension 46524377 I10 Well controlled . recheck BP today in sitting position, right arm with adult big cuff the reading was 140/78 mmHG. Will continue low salt diet and refills of medication s. 130/70 mmhg 02-13-2018 . Type 2 viviana betes mellitus without complication 972874783 E11.9 Blood sugar is 76 mg%., DM is well controlled . Morbid obesity 274399621 E66.01 Diet, exercise and lose weight . Systolic hypertension 56 155719 I10 Low salt diat, exercise and lose weight, will adjust her medication s. Dyslipidemia 698373124 E 78.5 Low saturated fat diet, exercise and lose weight. Edema of l ower extremity 172135080 R60.0 Low salt diet, too hot of weather to wear stockings. Today she has no edema tody, but will maintain the water pill. [id number] MD Jersey Shelton (Adult Med) [address] [place] [address] [id number] 0 07/30/2019 17:02:05 07/30/2019 17:57:21 Type 2 diabetes mellitus without complication 534772328 E11.9 Blood sugar is 76 mg%., DM is well controlled . Systolic hypertension 56 266906 I10 Low salt diat, exercise and lose weight, will adjust her medication s. Dyslipidemia 475665743 E 78.5 Low saturated fat diet, exercise and lose weight. Acute sinusitis 69470408 J01.90 [id number] Obie Ahumada MD [facility] (Adult Med) [address] [place] [address] [phone] 0 11/16/2019 13:04:03 11/19/2019 11:38:19 Benign essential hypertension 9250161 I10 Long-term drug therapy 704371326 Z79.899 Type 2 viviana betes mellitus without complication 204538916 E11.9 Systolic hypertension 56 251816 I10 Edema of l ower extremity 978618602 R60.0 [id number] Kavita Levy MD [facility] (Adult Med) [address] [place] [address] [phone] 0 12/18/2019 11:17:16 12/19/2019 07:38:52 Type 2 diabetes mellitus 84533446 E11.9 Diabetic diet, exercise and keep the weight down. Office F/U in 2 months and do the fasting bloodtest prior to that.hD EYE EX. IN june 2017 AND WAS TOLD THAT SHE HAS CATARACTS BUT NO RETINOPATH Y. HgA1C is 5.8% today 02-13-2018 . Patient informed. Essential hypertension 69052621 I10 Well controlled . recheck BP today in sitting position, right arm with adult big cuff the reading was 140/78 mmHG. Will continue low salt diet and refills of medication s. 130/70 mmhg 02-13-2018 . Dyslipidemia 077819911 E 78.5 Low saturated fat diet, exercise and lose weight. Systolic hypertension 56 073733 I10 Low salt diat, exercise and lose weight, will adjust her medication s. [id number] MD Jersey Shelton (Adult Med) [address] [place] [address] [phone] 0 02/29/2020 08:09:29 03/04/2020 06:47:41 Essential hypertension 99272645 I10 Well controlled . recheck BP today in sitting position, right arm with adult big cuff the reading was 140/78 mmHG. Will continue low salt diet and refills of medication s. 130/70 mmhg 02-13-2018 . Type 2 viviana betes mellitus without complication 924671340 E11.9 Blood sugar is 76 mg%., DM is well controlled . [id number] MD Jersey Shelton (Adult Med) [address] [place] [address] [phone] 0 06/03/2020 08:33:07 06/04/2020 10:56:33 Benign essential hypertension 0600880 I10 Low salt diet, if possible, avoid OTC NSAID, or decongesta nt. Type 2 viviana betes mellitus without complication 310196054 E11.9 Blood sugar is 76 mg%., DM is well controlled . Last HgA1 c was 5.6%. Dyslipidemia 548921593 E 78.5 Low saturated fat diet, exercise and lose weight. Systolic hypertension 56 978379 I10 Low salt diat, exercise and lose weight, will adjust her medication s. Type 2 viviana betes mellitus 31643988 E11.9 Diabetic diet, exercise and keep the weight down. Office F/U in 2 months and do the fasting bloodtest prior to that.hD EYE EX. IN june 2017 AND WAS TOLD THAT SHE HAS CATARACTS BUT NO RETINOPATH Y. HgA1C is 5.8% today 02-13-2018 . Patient informed. [id number] MD Jersey Shelton (Adult Med) [address] [place] [address] [phone] 0 08/13/2020 08:09:16 08/14/2020 10:14:51 Essential hypertension 30986526 I10 Well controlled . recheck BP today in sitting position, right arm with adult big cuff the reading was 140/78 mmHG. Will continue low salt diet and refills of medication s. 130/70 mmhg 02-13-2018 . Type 2 viviana betes mellitus without complication 315315226 E11.9 Blood sugar is 76 mg%., DM is well controlled . Last HgA1 c was 5.6%. [id number] MD Jersey Shelton (Adult Med) [address] [place] [address] [phone] 0 02/09/2021 08:46:58 02/10/2021 14:44:58 Essential hypertension 65722417 I10 Well controlled . recheck BP today in sitting position, right arm with adult big cuff the reading was 140/78 mm HG. Will continue low salt diet and refills of medication s. 130/70 mm Hg 02-13-2018 . Type 2 viviana betes mellitus without complication 241639800 E11.9 Blood sugar is 76 mg%., DM is well controlled . Last HgA1 c was 5.6%. Dyslipidem ia due to type 2 diabetes mellitus 5642082080 02 E78.5 Low animal fat diet. low saturated fat diet. Coronary atherosclerosis 194423956 I25.10 Under the care of her cardiologi st. [id number] MD Jersey Shelton (Adult Med) [address] [place] [address] [phone] 0 07/30/2021 16:41:22 07/31/2021 12:19:22 Benign essential hypertension 7527572 I10 Low salt diet, if possible, avoid OTC NSAID, or decongesta nt. Essential hypertension 47819758 I10 Well controlled . recheck BP today in sitting position, right arm with adult big cuff the reading was 140/78 mm HG. Will continue low salt diet and refills of medication s. 130/70 mm Hg 02-13-2018 . BP reading 120/70 mm Hg. -07-30-2021 . Renewal of prescription 026001899 Z76.0 Coronary atherosclerosis 755535340 I25.10 Under the care of her cardiologi st. Dyslipidem ia due to type 2 diabetes mellitus 1283031585 02 E78.5 Low animal fat diet. low saturated fat diet. [id number] MIRIAM PERKINS (Peds) [address] [place] [address] [id number] 0 08/03/2021 15:07:43 08/04/2021 08:42:22 Administration of SARS-CoV-2 mRNA vaccine 8680102451 Z23 [id number] Kavita Levy MD [facility] (Adult Med) [address] [place] [address] [phone] 0 10/29/2021 14:15:59 11/02/2021 12:24:01 Screening for malignant neoplasm of colon 754843529 Z12.11 She agreed. Screening for malignant neoplasm of breast 591542796 Z12.39 She agreed. Benign ess ential hypertension 0511226 I10 Low salt diet, if possible, avoid OTC NSAID, or decongesta nt. 10-26-2021 blood pressure reading is 160/84 mm HG. Diue to running out of medication s. Type 2 viviana betes mellitus without complication 718296605 E11.9 Blood sugar is 76 mg%., DM is well controlled . Last HgA1 c was 5.6%. Renewal of prescription 872354936 Z76.0 Dyslipidem ia realted to type2 DM Seasonal allergy 3989752 04 J30.2 Coronary atherosclerosis 915269035 I25.10 Under the care of her cardiologi st [id number] Kavita Levy MD [facility] (Adult Med) [address] [place] [address] [phone] 0 02/18/2022 16:23:23 02/19/2022 15:06:04 Type 2 diabetes mellitus without complication 182863931 E11.9 Blood sugar is 76 mg%., DM is well controlled . Last HgA1 c was 5.6%. Type 2 viviana betes mellitus 13794263 E11.9 Diabetic diet, exercise and keep the weight down. Office F/U in 2 months and do the fasting blood test prior to that.Had EYE EX. IN JUNE 2017 AND WAS TOLD THAT SHE HAS CATARACTS BUT NO RETINOPATH Y. HgA1C is 5.8% today 02-13-2018 . Patient informed.A s 22, her A!c is 5.5 %. Essential hypertension 44982568 I10 Well controlled . recheck BP today in sitting position, right arm with adult big cuff the reading was 140/78 mm HG. Will continue low salt diet and refills of medication s. 130/70 mm Hg 02-13-2018 . BP reading 120/70 mm Hg. -07-30-2021 . As 02-18-2022 , blood pressure is 132/86 .Will continue same regimen, and monitor blood pressure. Dyslipidem ia due to type 2 diabetes mellitus 8974069952 02 E78.5 Low animal fat diet. low saturated fat diet. Morbid obesity 240569666 E66.01 Diet, exercise and lose weight . Coronary atherosclerosis 256130459 I25.10 Under the care of her cardiologi st. [id number] MD Jersey Shelton (Adult Med) [address] [place] [address] [phone] 0 06/21/2022 16:35:40 06/25/2022 13:18:44 Type 2 diabetes mellitus without complication 714360553 E11.9 Blood sugar is 76 mg%., DM is well controlled . Last HgA1 c was 5.6%. Coronary atherosclerosis 525092561 I25.10 Under the care of her cardiologi st. Dyslipidem ia due to type 2 diabetes mellitus 3043338275 02 E78.5 Low animal fat diet. low saturated fat diet. Essential hypertension 32918977 I10 Well controlled . recheck BP today in sitting position, right arm with adult big cuff the reading was 140/78 mm HG. Will continue low salt diet and refills of medication s. 130/70 mm Hg 02-13-2018 . BP reading 120/70 mm Hg. -07-30-2021 . As 02-18-2022 , blood pressure is 132/86 .Will continue same regimen, and monitor blood pressure. HIV screening 733581085 Z11.4 She refuses. 06-21-2022 . Screening for malignant neoplasm of colon 678666427 Z12.11 She refuses 06-21-2022 . Influenza vaccination declined 078395506 Z28.21 She refuses, 06-21-2022 . Mammogram declined 01813 5004 Z53.20 She refuses 06-21-2022 . [id number] MIRIAM PERKINS (Peds) [address] [place] [address] [phone] 0 06/23/2022 14:37:51 06/24/2022 10:23:20 Administration of SARS-CoV-2 antigen vaccine 734999646 Z23 [id number] MD Jersey Shelton (Adult Med) [address] [place] [address] [phone] 0 02/11/2023 15:28:00 02/14/2023 14:30:08 Benign essential hypertension 1787995 I10 Low salt diet, if possible, avoid OTC NSAID, or decongesta nt. 10-26-2021 blood pressure reading is 160/84 mm HG. Due to running out of medication s. And OTC decongesta nt. Type 2 viviana betes mellitus without complication 735529351 E11.9 Blood sugar is 76 mg%., DM is well controlled . Last HgA1 c was 5.6%. Screening for malignant neoplasm of colon 502725160 Z12.11 She refuses 06-21-2022 . But today 02-11-23, she agreed for the screening. She dose not remember the year she had negative conoscopic ex. Dyslipidem ia due to type 2 diabetes mellitus 8557191147 02 E78.5 Low animal fat diet. low saturated fat diet. Essential hypertension 33179146 I10 Well controlled . recheck BP today in sitting position, right arm with adult big cuff the reading was 140/78 mm HG. Will continue low salt diet and refills of medication s. 130/70 mm Hg 02-13-2018 . BP reading 120/70 mm Hg. -07-30-2021 . As 02-18-2022 , blood pressure is 132/86 .Will continue same regimen, and monitor blood pressure. She has blood pressure monitor at home, she said that her cuff might be to small. Coronary atherosclerosis 782617185 I25.10 Under the care of her cardiologi st. Morbid obesity 288034942 E66.01 Diet, exercise and lose weight . As 02-11-23. BMI is 44.8 today, advised her to watch her low salt diabetic diet, exercise, and lose weight. [id number] [facility] [address] [place] [address] [phone] 0 06/13/2023 14:19:32 06/13/2023 15:07:44 Type 2 diabetes mellitus 03717865 E11.9 Diabetic diet, exercise and keep the weight down. Office F/U in 2 months and do the fasting blood test prior to that.Had EYE EX. IN JUNE 2017 AND WAS TOLD THAT SHE HAS CATARACTS BUT NO RETINOPATH Y. HgA1C is 5.8% today 02-13-2018 . Patient informed.A s 22, her A!c is 5.5 %. Essential hypertension 96785566 I10 Well controlled . recheck BP today in sitting position, right arm with adult big cuff the reading was 140/78 mm HG. Will continue low salt diet and refills of medication s. 130/70 mm Hg 02-13-2018 . BP reading 120/70 mm Hg. -07-30-2021 . As 02-18-2022 , blood pressure is 132/86 .Will continue same regimen, and monitor blood pressure. She has blood pressure monitor at home, she said that her cuff might be to small. BP is 120/[address] Levy, today 06-13-23. Dyslipidem ia due to type 2 diabetes mellitus 9210899188 02 E78.5 Low animal fat diet. low saturated fat diet. Obesity 378718124 E66.9 BMI 42.7 06-13-23. Diet, exercise, and lose weight. she agreed to try. 06-13-23. Supraventr icular tachycardia 8654223 I47.19 Under the care of her cardiologi st. Mammogram declined 38121 5004 Z53.20 She refuses 06-21-2022 . [facility] er screening declined 1323432497 9109 Z53.20 She declined 06-13-23 Influenza vaccination declined 917615239 Z28.21 She refuses, 06-21-2022 . She [id number] today 06-13-23. [id number] Fiona Guzman MD [facility] (Adult Med) [address] [place] [address] 11/08/2023 14:17:47 11/11/2023 12:40:29 Obesity 772571738 E66.9 Essential hypertension 69530455 I10 Has not had blood work in some time. Will return for fasting blood work. Coronary atherosclerosis 480207992 I25.10 Type 2 viviana betes mellitus 00807481 E11.9 Well controlled . Would like to increase statin but will wait until we make sure liver function tests are normal. Discussed with patient. Body mass index 40+ - severely obese 869786112 Z68.41 Discussed diet and exercise. Has been working on diet. Has not been exercising . Recommende d goal of thirty minutes six days a week. Recommende d less carbohydra scott and more protein and fiber. She is already eating chicken and fruit and drinks diet soda. If she is not able to get much response with exercising consider adding medication . [id number] Fiona Guzman MD [facility] (Adult Med) [address] [place] [address] [phone] 0 01/10/2024 14:19:31 01/16/2024 11:45:47 Body mass index 40+ - severely obese 578713637 Z68.41 Discussed lifestyle changes. Patient was limited on exercise after fall, but she has recently been able to increase activity again. Working on lifestyle changes. Discussed medication but she would like to try to avoid that right now. Will see what she can do and check her weight again in three months. Consider GLP-1. Will have to weigh out risks and benefits of medication options. Serum crea tinine outside reference range 131543223 R79.89 Probably secondary to diabetes and hypertensi on. Creatinine and GFR have increased since 2018. Albumin/cr eatinine ratio is not increased. Advised patient to stay well hydrated and avoid anti-infla mmatories. Will avoid repeating blood work because patient is a hard stick and expect it to be done at nephrologi st visit. Follow up in three months. Hyperlipidemia 81406795 E78.5 Increase Atorvastat in to 20 mg a day to get to a goal LDL of 70. Repeat lipids and liver profile at follow up. Discussed side effects with patient. Type 2 viviana betes mellitus 75124666 E11.9 Last hemoglobin A1C excellent. Continue Metformin. May want to consider adding a SGLT2 inhibitor for renal protection . Will discuss further after sees nephrologi st. Cataract 581671284 H26.9 Had recent cataract surgery. Having complicati ons. Following with ophthalmol ogist. Osteoarthr itis of right knee joint 8283603460 61457 M17.11 Pain improving since recent fall. Takes Tylenol when needed. Increasing activity again. Coronary atherosclerosis 674844670 I25.[address] Essential hypertension 38387122 I10 Blood pressure controlled . Blood work done in October. Seeing Nephrologi st to evaluate renal disease. [id number] Jony Santa MD [facility] ([facility] [address] [place] [address] 01/31/2024 14:06:36 02/01/2024 12:37:21 Chronic kidney disease stage 3 977119785 N18.30 Pt appears to have ckd3 (egfr 45ml/min), ckd prob sec to underlying h/o h/o htn/?dm.PE sig for iobesity.B P high today.BP 150/75 mmhg at home tis am.Pt on losartan,h ydralazine ,furosemid e,hydralaz ine Essential hypertension 04242191 I10 BP high today,was high at home this am as well(per pt sbp over 140mmhg).p on multiple bp medsNeed to exclude renovasc htn. Type 2 viviana betes mellitus 07664365 E11.9 cont metformin as long as egfr remains above 30ml/min Obesity 509150508 E66.9 work on wt reduction History of radiofrequency ablation operation for arrhythmia 902539137 Z98.890 pt on eliquis,no known diagnosis of Afib( per pt).Plan per cardiology [id number] Fiona Guzman MD [facility] (Adult Med) [address] [place] [address] 04/12/2024 11:16:15 04/13/2024 10:31:49 Type 2 diabetes mellitus 17558670 E11.9 Will stop Metformin and start Ozempic to try to control glucose and help with weight loss at the same time. Will send out glucose monitor for acu checks. will stop Metformin when starts Ozempic and check daily fasting acu checks. If less than 100 or symptomati c she will let me know. Discussed side effects of Ozempic including nausea and abdominal pain. Discussed risks including pancreatit is and thyroid medullary carcinoma. Patient understood and would like to try the medication for the diabetic medication s along with the weight loss and benefits for her arthritis. Chronic ki dney disease stage 3 361056495 N18.30 Had blood tests and ultrasound ordered by Nephrologi st but do not have the results. Will get them from [facility]. Body mass index 40+ - severely obese 751827451 Z68.41 Patient has worked on lifestyle changes but still struggling to loose weight. Will add Ozempic to see if this helps and it will also help sugars. Osteoarthr itis of knee 742915993 M17.9 Osteoarthr itis of knees. Will try Ozempic to help with weight loss to see if this helps with arthritic pain. Essential hypertension 69442803 I10 Blood pressure well controlled today. Continue present medication . Coronary atherosclerosis 910169718 I25.[address] Hyperlipidemia 42167123 E78.5 Atorvastat in has been increased to 20 mg. Will repeat a lipid at follow up. Will see if we can add a liver function panel to thyroid test. Abdominal aortic aneurysm 073775879 I71.40 Repeat ultrasound and carotid doppler in September 2024. Atrial flutter 3694000 I 48.92 History of atrial flutter per cardiology note. In sinus rhythm in the office today. [id number] Jony Santa MD [facility] ([facility] [address] [place] [phone] 06/19/2024 11:50:07 06/25/2024 15:13:21 Chronic kidney disease stage 3 099707398 N18.30 Pt appears to have ckd3 (egfr 57ml/min), ckd prob sec to underlying h/o h/o htn/?dm.cr eat/egfr better this time,creat down and egfr up.PE sig for obesity.BP high today.BP 150/78 mmhgPt on losartan,h ydralazine ,furosemid e,hydralaz ineVit D LEVEL LOW,PTH HIGH NOTEDNo renal us result noted.per pt no order received. Type 2 viviana betes mellitus 22781283 E11.9 cont metformin as long as egfr remains above 30ml/min Essential hypertension 65891819 I10 BP remains high..Pt on multiple bp medsNeed to exclude renovasc htn.Renal artery duplex study not doneIncrea se dose of hydralazin e to 100 mg tid Obesity 669724211 E66.9 work on wt reduction Vitamin D deficiency 347 08621 E55.9 cont vit d supplement Hyperparat hyroidism due to renal insufficiency 54438297 N25.81 cont rocaltrol [id number] MD [facility] (Adult Med) [address] [place] [phone] 07/09/2024 15:15:46 07/12/2024 15:10:44 Cardiac arrhythmia 958578078 I49.9 History of atrial flutter. Ectopy heard on exam today. Will get twenty four hour holter and then patient will follow up. No chest pain or shortness of breath. Hyperlipidemia 51463234 E78.5 Will check lipid and CMP. If abnormal may need to repeat fasting. Type 2 viviana betes mellitus 58178613 E11.9 Hemoglobin A1C shows that diabetes is well controlled . Would like to try to add GLP-1 to help with weight management , kidney disease, and glucose control. Once thyroid work up is done consider GLP-1. For now continue Metformin. Chronic ki dney disease stage 3 725818596 N18.30 Seeing nephrology . Ordered ultrasound . [place] like renal disease most likely due to hypertensi on and/or diabetes. Keep well hydrated. Atrial flutter 0014261 I 48.92 History of atrial flutter per cardiology note. In sinus rhythm in the office today. Coronary atherosclerosis 988628380 I25.[address] Essential hypertension 72974849 I10 Blood pressure well controlled today. Continue present medication . [id number] MD [facility] Gomez (Adult Med) [address] [place] [phone] 10/22/2024 14:42:33 10/23/2024 11:00:19 Type 2 diabetes mellitus 83023585 E11.9 She saw endocrinol ogist regarding her thyroid nodule and he has approved her to start GLP-1. Reviewed potential side effects and risks again. Will have her stop Metformin and start Ozempic. Will start on .25 mg weekly and if she is tolerating it well after a month will go up to .5 mg monthly. Will also send out a blood glucose monitor so she can see how her glucose is while she is on the medication . I am having her stop the Metformin because her glucose has been very well controlled and I don't want to risk hypoglycem ia events. We can always resume Metformin if needed. Chronic ki dney disease stage 3 636716706 N18.30 Follows with nephrologi . Is due for some blood work. She is also getting blood work here and I am sure some of it is the same so she will drop off the blood work the nephrologi needs and we can add it to ours. She also had an MRI of her kidney and I will try to get that result. She is destinee avelar seeing a different nephrologi st and I spoke to her about Dr. Fortune. Osteoarthr itis of knee 921610567 M17.9 Osteoarthr itis of knees. Will try Ozempic to help with weight loss to see if this helps with arthritic pain. Essential hypertension 34618066 I10 Blood pressure well controlled today. Continue present medication . Coronary atherosclerosis 470989297 I25.10 Sees cardiologi . Hyperlipidemia 28163420 E78.5 Last lipids were checked about a year ago. She will come in for fasting blood work and will check lipids. Abdominal aortic aneurysm 363911535 I71.40 Repeat ultrasound and carotid doppler due in September 2024 per cardiology note. Will discuss at follow up. Atrial flutter 6981464 I 48.92 History of atrial flutter. [place] some ectopy on exam. Had holter and it showed some PACs but nothing else. Patient was not symptomati c. [id number] Fiona Guzman MD [facility] (Adult Med) [address] [place] [phone] 11/23/2024 11:44:37 11/26/2024 17:41:35 Sprain of left wrist [id number] S63.502A Will continue Tylenol as needed. Avoid anti-infla mmatories due to blood pressure. Continue [place] wrap. Will get xray from ER visit. Suspicious for fracture due to significan t pain and mild swelling. If ER x-ray negative will repeat x-ray. Near syncope 544847511 R 55 Patient recently started GLP-1 medication and had very little to eat that day. She also had sudden urge to have a bowel movement right before she started to feel faint. She does not believe she actually passed out but was close to it. She fell to the floor and had a bowel movement. She was alert the whole time. She had no palpitatio ns or chest pain. No seizure activity. From patient history it is most likely this was a hypoglycem ic episode. Would also consider a vasovagal episode due to cramping due to bowel movement. She is going to stop her Ozempic and check fasting blood glucose each morning. She will send those in over the portal in one week. If she has another near syncopal episode she will let me know or seek medical attention immediatel y. She will reach out immediatel y if her glucose is over 250. I will get blood test results from the ER visit and do any additional blood work that is necessary. She will follow up in two weeks. Microcytic anemia 280382 007 D50.9 Scheduled for colonoscop y and EGD in January. Type 2 viviana betes mellitus 10461780 E11.9 Will hold all diabetic medication s and get a sense of fasting blood sugars and go from there. Her glucose monitor has been reading error at home, but here it gave us a reading of 100 which was close to our glucose meter which read 90. If she is having trouble with her meter at home we will have her bring it in and show us how she is doing her readings. Encouraged her to eat regular small meals daily. Health Concerns Section Related Observation LastModified by Organization Detai ls LastModified Time None Recorded Concern Status LastModified by Organization Details LastModified Time None Recorded Advance Directives Directive N: Payers Encounter Date Sequence Insurance Name Policy Number Policy Leigh Covered Member ID Leigh Member ID Guarantor Name 07/09/2024 1 [facility] (MEDICARE REPLACEMENT/A DVANTAGE - HMO) [id number] Radha Gupta [id number] Radha Gupta 10/22/2024 1 [facility] (MEDICARE REPLACEMENT/A DVANTAGE - HMO) [id number] Radha Gupta [id number] Radha Gupta 11/23/2024 1 [facility] (MEDICARE REPLACEMENT/A DVANTAGE - HMO) [id number] Radha Gupta [id number] Radha Gupta Notes Date Note Type Note Provider Name and Address Organization Details Recorded Time 07/09/2024 text/html follow up, saw kidney doctor, wants more tests, also saw prototype engineer, wanting blood work and then will determine if needs thyroid biopsy, last saw eye doctor in November, had cataract surgery in November, no sores, no foot pain, has diabetes and A1C has been good, not light headed or dizzy, had an episode a month or more ago where felt hot and felt like she might start to feel faint but she didn't, history of palpitations and atrial flutter Fiona Guzman MD Attn: Accounting, [address] [facility], [place], [address], [facility] 07/09/2024 18:36:06 10/22/2024 text/html recently saw prototype engineer, told her she could take GLP-1, takes Metformin for diabetes, does not have a glucose monitor at home, saw media promoter, had imaging done, media promoter needs blood work, Fiona Guzman MD Attn: Accounting, [address] [place], [address], [facility] 10/22/2024 16:06:47 11/23/2024 text/html was at [facility], hadn't eaten much that day, was talking to friend, felt dizzy which she describes as woozy, not nauseated, clammy, felt like she needed to go to the bathroom, felt like getting ready to have a bowel movement, no obvious palpitations, felt something coming down like had to go to the bathroom, got up and bumped the table, fell on the floor, doesn't think she totally blacked out, had a bowel movement, walked to the bathroom, in the bathroom ten or fifteen minutes, drove self home, had a large bowel movement but not painful, was not diarrhea, usually goes twice a day and has been going twice a day, had bowel movement that morning, caught self with left wrist, went to ER due to left wrist pain, did x-ray along with blood work and EKG in ER, said had a sprain, did not eat breakfast or much food at all that day, ate a package of peanut butter crackers and a few chips, when was in the ER waiting felt another spell come on, felt hungry, sister gave her jelly beans, recently stopped Metformin and started Ozempic, has not been able to check sugars because her meter keeps saying error and she can't get glucose readings, taking .25 mg Ozempic, scheduled for colonoscopy and EGD in January, Fiona Guzman MD Attn: Accounting, [address] [place], [address], [facility] 11/23/2024 13:57:56 OBGyn Episode No OBEpisode recorded.
== END 2024-11-29 14:40 | disposition home or self-care (01) ==
PROVIDERS: PCP Emergency Medicine; Visit Provider Emergency Medicine
DX: M25.532 Pain in left wrist (principal)
CPT/HCPCS: 73110

== ENCOUNTER 2025-04-04 00:52 | Day surgery (SDC) | payer MEDICARE, SELFPAY ==
[2025-01-28 09:11] VITALS: BMI 44.8
--- NOTE | 2025-01-28 09:39 | PC.NURSE ---
Spoke with patient regarding medication Eliquis. Patient verbalizes understanding that the last dose is to be taken on 02/04/2025 and the Endoscopist will instruct them when to restart after the procedure.
[2025-03-21 09:43] VITALS: BMI 44.8
--- NOTE | 2025-03-21 09:49 | PC.NURSE ---
Spoke with patient regarding medication ELIQUIS. PATIENT_verbalizes understanding that the last dose is to be taken on 04/01/2025 and the Endoscopist will instruct them when to restart after the procedure.
--- OUTSIDE RECORDS SUMMARY | 2025-04-04 00:54 | XMS_ITS | Clinical Summary ---
Author Organization [facility] Address [address] [place] [phone] Care Team Providers Care Cytology Manager Name Role Phone Fiona Guzman MD Primary Care Provider [phone] Allergies Active Allergy Reactions Criticality Noted Date [...] SVT (supraventricular tachycardia) 05/17/2023 Supraventricular tachycardia 04/22/2023 Surgical History Surgery Date Site/Laterality Comments PARTIAL HYSTERECTOMY Medical History Medical History Date Comments Arrhythmia Hypertension Asthma Type 2 diabetes mellitus Social History Tobacco Use Types Packs/Day Years [...] on file Legal Sex 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
--- OUTSIDE RECORDS SUMMARY | 2025-04-04 00:54 | XMS_ITS | Clinical Summary ---
Author Organization [facility] Address [address] [place] [address] Care Team Providers Care Cage Maker Machine Name Role Phone Fiona Guzman MD Primary Care Provider [phone] Source Comments [facility] [employer],non-owned Affiliates and Associated Physician Practices is amultiple site organization consisting of ambulatory clinics and hospital sitesin [place], [place], [place] and [place]. This disclosure is being madepursuant to the Care Everywhere program and may not contain all information available regarding this patient. Last updated 18.[facility] Allergies Active Allergy Reactions Criticality Noted Date [...] Blood Pressure 163/73 07/12/2024 1:45 PM NETWORK SECURITY ANALYST Pulse 82 07/12/2024 1:45 PM NETWORK SECURITY ANALYST Temperature - - Respiratory Rate - - Oxygen Saturation 93% 07/12/2024 1:45 PM NETWORK SECURITY ANALYST Inhaled Oxygen Concentration - - Weight 107.5 kg (237 lb) 07/12/2024 1:45 PM NETWORK SECURITY ANALYST Height - - Body Mass Index - - Plan of Treatment Health Maintenance Due Date [...] VACCINE (1 of 2) 2006 COVID-19 VACCINE (5 - season) 2024 06/23/2022, 08/03/2021, 10/24/2020, Additional history exists DIABETES RETINOPATHY SCREENING 07/01/2024 DIABETES-FOOT EXAM WITH MONOFILAMENT 07/01/2024 DIABETES-HGB A1C 07/01/2024 DEPRESSION SCREENING 07/25/2024 DIABETES - URINE PROTEIN SCREENING 07/25/2024 MEDICARE AWV CALENDAR YEAR 2024 INFLUENZA VACCINE (#1) 2025 Respiratory Syncytial Virus (RSV) Vaccine Pt: [...] patient's age to complete this topic Insurance [facility] MANAGED MEDICARE ADV Care Teams Cage Maker Machine Relationship Specialty Start Date End Date Fiona Guzman MD [address] [place] [phone] PCP - General Emergency Medicine 07/02/24
[2025-04-04 12:45] VITALS: BP 179/67; PULSE 71; RESP 20; TEMP 36.2; O2SAT 100; BMI 45.3
[2025-04-04] MEDS: LACTATED RINGERS 1,000 ML 150 ML IV CONT (13:10)
--- NOTE | 2025-04-04 13:21 | WPDANESEPPF ---
Anes - Initial Pre Proc Eval Procedure: Operation Date: 04/04/25 13:30 Proposed Procedures p Esophagogastroduodenoscopy & Colonoscopy - Eleazar Monahan MD Date/Time: 04/04/25 13:21 Surgeon: Eleazar Monahan MD Pre Op Diagnosis: Personal history of colon polyps, unspecified Patient Data Age: 69 Gender: F Height: 1.57 m Weight: 112.6 kg Last Vital Signs Temp 36.2 C L 04/04/25 12:45 Pulse 71 04/04/25 12:45 Resp 20 04/04/25 12:45 BP 179/67 H 04/04/25 12:45 Pulse Ox 100 04/04/25 12:45 O2 Del Method Room Air 04/04/25 12:45 Allergies Allergy/AdvReac Type Severity Reaction Status Date / Time codeine Allergy Mild Hives Verified 04/04/25 12:42 Home Medications ?Medication ?Instructions ?Recorded ?Confirmed ?Type apixaban 5 mg tablet (Eliquis) 5 mg PO BID 11/08/24 04/04/25 History atorvastatin 20 mg tablet (Lipitor) 20 mg PO DAILY 11/08/24 04/04/25 History diltiazem HCl 90 mg tablet 90 mg PO BID 11/08/24 04/04/25 History ergocalciferol (vitamin D2) 50 mcg 50 mcg PO DAILY 11/08/24 04/04/25 History (2,000 unit) capsule furosemide 40 mg tablet 40 mg PO QAM 11/08/24 04/04/25 History hydralazine 50 mg tablet 50 mg PO TID 11/08/24 04/04/25 History losartan 100 mg tablet 100 mg PO DAILY 11/08/24 04/04/25 History magnesium oxide 400 mg (241.3 mg 400 mg PO BID 01/28/25 04/04/25 History magnesium) tablet isosorbide mononitrate 60 mg 60 mg PO DAILY 03/21/25 04/04/25 History tablet,extended release 24 hr semaglutide 3 mg tablet (Rybelsus) 3 mg PO DAILY 03/21/25 03/21/25 History Patient hx anesthesia problems: none Family hx anesthesia problems: none Results Review: All pre-operative results and documents have been reviewed as part of the pre-operative evaluation. [facility] Past Medical History Medical History (Updated 04/03/25 @ 14:33 by Darryl Cristobal DO) Atrial flutter Hypertension Type 2 diabetes mellitus Surgical History Surgical History (Updated 04/03/25 @ 14:33 by Darryl Cristobal DO) History of hysterectomy History of cardiac ablation for atrial fibrillation Hx of cataract surgery Social History Social History Smoking status: Never smoker Substance use type: does not use Living arrangements: alone Spiritual care concerns: No Anes - Eval Final PreProcedure Day of Procedure 04/04/25 13:21 Patient weight: morbidly obese Heart: regular rate and rhythm Lungs: clear to auscultation Airway: Mallampati scale class II Neurological: alert and oriented Last oral intake: >/= 8 hours ASA classification: III Emergent: no Anesthetic plan: proceed Anesthesia type and monitoring: general GIVS and standard monitoring Results Review: All pre-operative results and documents have been reviewed as part of the pre-operative evaluation. Informed Consent: The patient's anesthetic plan and its attendant risks and benefits were discussed with the patient/family/POA. Questions were solicited and answers provided to the satisfaction of the patient/family/POA.
--- NOTE | 2025-04-04 13:30 | PM.HPGS ---
History of Present Illness History of Present Illness Consent: Risks, benefits, and alternatives have been discussed and questions answered. Patient agrees to proceed with procedure. Chief complaint: Personal history of colon polyps, unspecified Narrative: Radha Gupta is a 69 year old female with anemia, denies overt gib, last colonoscopy in 2013 Review of Systems Review of Systems: All systems reviewed & are unremarkable except as noted in HPI and below PMFSH Past Medical History Medical History (Updated 04/04/25 @ 13:31 by Eleazar Monahan MD) Anemia Atrial flutter Hypertension Type 2 diabetes mellitus Surgical History Surgical History (Updated 04/03/25 @ 14:33 by Darryl Cristobal DO) History of hysterectomy History of cardiac ablation for atrial fibrillation Hx of cataract surgery Social History Social History Smoking status: Never smoker Substance use type: does not use Living arrangements: alone Spiritual care concerns: No Meds Home Medications and Allergies Home Medications ?Medication ?Instructions ?Recorded ?Confirmed ?Type apixaban 5 mg tablet (Eliquis) 5 mg PO BID 11/08/24 04/04/25 History atorvastatin 20 mg tablet (Lipitor) 20 mg PO DAILY 11/08/24 04/04/25 History diltiazem HCl 90 mg tablet 90 mg PO BID 11/08/24 04/04/25 History ergocalciferol (vitamin D2) 50 mcg 50 mcg PO DAILY 11/08/24 04/04/25 History (2,000 unit) capsule furosemide 40 mg tablet 40 mg PO QAM 11/08/24 04/04/25 History hydralazine 50 mg tablet 50 mg PO TID 11/08/24 04/04/25 History losartan 100 mg tablet 100 mg PO DAILY 11/08/24 04/04/25 History magnesium oxide 400 mg (241.3 mg 400 mg PO BID 01/28/25 04/04/25 History magnesium) tablet isosorbide mononitrate 60 mg 60 mg PO DAILY 03/21/25 04/04/25 History tablet,extended release 24 hr semaglutide 3 mg tablet (Rybelsus) 3 mg PO DAILY 03/21/25 03/21/25 History Allergies Allergy/AdvReac Type Severity Reaction Status Date / Time codeine Allergy Mild Hives Verified 04/04/25 12:42 Vital Signs Vital Signs - 24 hr 04/04/25 12:45 Temperature 97.2 F L Pulse Rate 71 Respiratory Rate 20 Blood Pressure 179/67 H Pulse Oximetry 100 Oxygen Delivery Room Air Exam Const: General: comfortable and no acute distress HENMT: Face/Nose/Sinus: Normal nares present Eyes: General: appearance normal, both eyes and all related structures Resp: Auscultation: clear to auscultation bilaterally Cardio: Rate: regular rate Rhythm: regular rhythm GI: Inspection: non-distended GI Palp: Yes Soft to palpation Skin: General skin exam: normal color Neuro: Speech: normal speech Extrem: General: normal to inspection Psych: Mental Status: mental status grossly normal Assessment and Plan Assessment and plan (1) Anemia: Code(s): D64.9 - Anemia, unspecified Status: Acute Assessment and Plan: egd and colonoscopy
--- NOTE | 2025-04-04 13:36 | SUR.OPER ---
EGD TIME [id number], COLONOSCOPY TIME [id number]
--- NOTE | 2025-04-04 13:40 | S_PTH ---
PATIENT: Radha Gupta LOC: [facility]#:[id number] AGE/SX: 69/F ROOM: RE04/04/[address]: Eleazar Monahan MD : [id number] BED: DIS: 04/04/2025 SPEC #: [id number] RECD: 04/05/25 07:30 STATUS: HARRY JEAN-BAPTISTE #: [id number] LUISA: 04/04/25 13:[address]: Eleazar Monahan DEPT: [facility] Surgical RECD BY: Josette Murillo ENTERED: 04/05/25 07:30 SP TYPE: Surgical OTHR DR: Fiona GuzmanMD Tissues: A - Gastric Biopsy B - Colon Polypectomy C - Colon Polypectomy Procedures: Hematoxylin and Eosin Stain Gross and Microscopic Level 4
[2025-04-04 13:51] VITALS: BP 148/85; PULSE 68; RESP 21; O2SAT 100
[2025-04-04 14:01] VITALS: BP 148/78; PULSE 65; RESP 28; O2SAT 100
[2025-04-04 14:11] VITALS: BP 165/76; PULSE 64; RESP 19; O2SAT 100
== END 2025-04-04 14:22 | disposition home or self-care (01) ==
PROVIDERS: PCP Emergency Medicine; Referring Provider Nurse Practitioner; Visit Provider Internal Medicine Gastroenterology
PROC: 0DJ08ZZ Inspection of Upper Intestinal Tract, Via Natural or Artificial Opening Endoscopic (ICD-10-PCS; CPT 45378; principal; 2025-04-04 13:30)
DX: Z12.11 Encounter for screening for malignant neoplasm of colon (principal); D64.9 Anemia, unspecified; D12.4 Benign neoplasm of descending colon; K63.5 Polyp of colon; K64.8 Other hemorrhoids; K57.30 Diverticulosis of large intestine without perforation or abscess without bleeding; K29.50 Unspecified chronic gastritis without bleeding; I10 Essential (primary) hypertension; E11.9 Type 2 diabetes mellitus without complications; I48.92 Unspecified atrial flutter; E66.01 Morbid (severe) obesity due to excess calories; Z68.42 Body mass index [BMI] 45.0-49.9, adult; Z79.01 Long term (current) use of anticoagulants; Z98.890 Other specified postprocedural states; Z86.79 Personal history of other diseases of the circulatory system
CPT/HCPCS: 43239; 45380; 45385; 88305; J2003; J2704; J7120

== ENCOUNTER 2025-06-15 13:37 | Emergency (ER) | payer MEDICARE, SELFPAY ==
--- NOTE | ~2025-06-15 | XR_ITS ---
Chest: Indication: Pain Comparison: None Technique: 2 PA lateral views obtained. Findings: Moderate cardiomegaly. Moderate pulmonary venous congestion. Bilateral infiltrates. Cardiomediastinal silhouette, peter, diaphragmatic and osseous structures unremarkable. IMPRESSION: CHF. Superimposed probable pneumonia 1 1 Reviewed, dictated and finalized at location P. SHOVEL OPERATOR
--- NOTE | ~2025-06-15 | CT_ITS ---
EXAMINATION: CT brain wo [place], 06/15/2025 14:45 LINUX SYSTEM ENGINEER HISTORY: Headache COMPARISON: No comparisons available. Technique: Axial images obtained of the brain without contrast. One or more of the following dose reduction techniques were used: automated exposure control, adjustment of the mA and/or kV according to patient size, use of iterative reconstruction technique. Findings: No acute infarct or parenchymal hemorrhage. No abnormal mass or mass effect. No midline shift. No extra-axial fluid collections. No hydrocephalus. Mastoid air cells unremarkable. Sinuses and orbits unremarkable. No acute fracture. No significant facial or scalp soft tissue swelling evident. No radiopaque foreign body is seen. Impression: 1.No acute intracranial abnormality. Reviewed, dictated and finalized at location P. X SYSTEM ENGINEER Impression: 1.No acute intracranial abnormality.
--- OUTSIDE RECORDS SUMMARY | 2025-06-15 13:39 | XMS_ITS | Data Portability ---
[facility] [address] [facility] [place] [address] Care Team Providers Care Collection Systems Consultant Name Role Phone FIONA GUZMAN Primary Care Provider Unavailabl e Assessment Encounter Date Assessment Date Assessment LastModified by Organization Details LastModified Time 04/01/2025 04/01/2025 Not sure she would like a mammogram. Explained the reason for doing them. She will think about it and we will discuss at follow up. [email or web address] Not available 04/01/2025 17:54:39 Plan of Treatment Reminders Order Date Submit Date Provider Last Modified By Organization Details Last Modified Time Details Appointments ANY 2024 01:00P Deborah Santa MD Not available Not available Not available ANY 2025 02:15P Deborah Guzman MD Not available Not available Not available Lab renal function panel, serum 2024 025 [facility], [address] [place] [address], [facility] [address], [place], [address], 06/05/2025 10:41:38 vitamin D, 25-hydrox y, total, serum 2024 025 [facility], [address] [place] [address], [facility] [address], [place], [address], 06/05/2025 10:41:38 unlisted lab - PTH-intac t+Ca 2024 025 y[facility]eme [facility], [address] [place] [address], [address], [place], [address], 06/05/2025 10:41:38 albumin/c reatinine , mass ratio, urine 2024 y[facility]eme [facility], [address], [address], [place], [address], 06/05/2025 10:41:38 CBC w/ auto diff 2024 y[facility], [address], [place], [address], 06/05/2025 10:41:39 HbA1c (hemoglob in A1c), blood 2024 [facility] In-Office Order, Internal Use Only DO Not Attach Compendium DO Not Attach Compendium, Do Not Delete/merge, [id number] 02/06/2025 14:28:56 CBC 2024 [facility], [address], [address], [place], [address], 01/31/2025 06:18:49 Referral None recorded. Procedures None recorded. Surgeries None recorded. Imaging None recorded. Medication Orders Rybelsus 14 mg tablet 2024 [facility] #01763, [address], [place], [id number], 06/12/2025 16:24:32 Rybelsus 7 mg tablet 2024 025 [facility] #41256, [address], [place], [id number], 05/15/2025 17:54:12 atorvasta tin 20 mg tablet 2024 025 [facility] #47287, [address], [place], [id number], 05/15/2025 18:16:00 furosemid e 40 mg tablet 2024 [facility] #03593, [address], [place], [id number], 05/15/2025 18:15:56 hydralazi ne 50 mg tablet 2024 [facility] #17130, [address], [place], [id number], 05/15/2025 18:16:00 losartan 100 mg tablet 2024 [facility] #27349, [address], [place], [id number], 05/15/2025 18:15:59 Eliquis 5 mg tablet 2024 [facility] #94308, [address], [place], [id number], 05/15/2025 18:15:58 magnesium oxide 400 mg (241.3 mg magnesium ) tablet 2024 [facility] #22424, [address], [place], [id number], 05/15/2025 18:15:59 Rybelsus 7 mg tablet 2024 [facility] #92005, [address], [place], [id number], 04/01/2025 19:34:34 furosemid e 40 mg tablet 2024 [facility] #02240, [address], [place], [id number], 04/01/2025 19:34:37 losartan 100 mg tablet 2024 025 [facility] #90754, [address], [place], [id number], 04/01/2025 19:34:34 Eliquis 5 mg tablet 2024 025 [facility] #56250, [address], [place], [id number], 04/01/2025 19:34:33 atorvasta tin 20 mg tablet 2024 025 [facility] #63445, [address], [place], [id number], 04/01/2025 19:34:33 Contour Plus Test Strip 2024 025 [facility] #32051, [address], [place], [id number], 01/30/2025 14:36:38 Rybelsus 3 mg tablet 2024 025 [facility] #12600, [address], [place], [id number], 05/15/2025 16:57:08 Patient TargetsNo targets recorded. Patient Instructions Encounter Date Encounter Id Patient Instructions Last Modified By Organization Details Last Modified Time 05/15/2025 [id number] A healthy lifestyle: care instructions sonu Not available 05/15/2025 17:54:06 Reason for Referral None Reported. Results Created Date Observation Date Name Description Value Unit Range Abnormal Flag Note LastModifiedBy Organization Detail LastModifiedTime 01/31/20 25 01/31/2025 CBC, PLATE LET, NO DIFFE RENTI AL WBC 4.8 x10e3 /uL 3.4-10 .8 Not Available [facility] ([facility] [place] [facility] [address] [facility], [place], [address], 01/31/2025 06:18:49 01/31/2001/31/2025 CBC, PLATE LET, NO DIFFE RENTI AL RBC 4.71 x10e6 /uL 3.77-5 .28 Not Available [facility] ([facility] [place] [place] [facility] [address] [place], [address], 01/31/2025 06:18:49 01/31/2001/31/2025 CBC, PLATE LET, NO DIFFE RENTI AL hemoglobin 10.7 g/dL 11.1-1 5.9 below low normal Not Available [facility] ([facility] [place] [place] [facility] [address] [place], [address], 01/31/2025 06:18:49 01/31/2001/31/2025 CBC, PLATE LET, NO DIFFE RENTI AL hematocrit 36.4 % 34.0-4 6.6 Not Available [facility] ([facility] [place] [place] [facility] [address] [place], [address], 01/31/2025 06:18:49 01/31/2001/31/2025 CBC, PLATE LET, NO DIFFE RENTI AL MCV 77 fL 79-97 below low normal Not Available [facility] ([facility] [place] [place] [facility] [address] [place], [address], 01/31/2025 06:18:49 01/31/2001/31/2025 CBC, PLATE LET, NO DIFFE RENTI AL MCH 22.7 pg 26.6-3 3.0 below low normal Not Available [facility] ([facility] [place] [place] [facility] [address] [place], [address], 01/31/2025 06:18:49 01/31/2001/31/2025 CBC, PLATE LET, NO DIFFE RENTI AL MCHC 29.4 g/dL 31.5-3 5.7 below low normal Not Available [facility] ([facility] [place] [place] [facility] [address] [place], [address], 01/31/2025 06:18:49 01/31/20 25 01/31/2025 CBC, PLATE LET, NO DIFFE RENTI AL RDW 16.4 % 11.7-1 5.4 above high normal Not Available [facility] ([facility] [place] [place] [facility] [address] [facility], [place], [address], 01/31/2025 06:18:49 01/31/20 25 01/31/2025 CBC, PLATE LET, NO DIFFE RENTI AL platelets 269 x10e3 /uL 150-45 0 Not Available [facility] ([facility] [place] [place] [facility] [address] [facility], [place], [address], 01/31/2025 06:18:49 02/07/20 25 02/06/2025 HbA1c (hemo globi n A1c), blood HbA1C 5.9 % Not Available In-Office Order Internal Use Only DO Not Attach Compendium DO Not Attach Compendium, Do Not Delete/merge, [id number] 01/30/2025 14:14:06 12/01/19 25 11/29/2024 XR, wrist No observ ation record ed. [facility] [address], [place], [address], 12/05/2024 09:04:11 05/20/20 25 02/14/2025 jenn r monit or No observ ation record ed. [facility] [address], [place], [address], 05/22/2025 13:42:47 Result Notes None recorded. Problems Name Problem SNOMED Code Status Onset Date Resolution Date Notes Provider Name and Address Organization Details Recorded Time Essential hypertension 93433822 Active Kavita Levy MD Attn: Claudia avelar,[address] [facility], [place], [address], [facility] 6 17:20:58 Systolic hypertension 51505209 Active Kavita Levy MD Attn: Claudia avelar,[address] [facility], [place], [address], [facility] 6 17:20:58 Benign essential hypertension 1503844 Active 2019 Obie Ahumada MD Attn: Claudia avelar,[address] [facility], [place], [address], [facility] 0 14:20:12 Type 2 diabetes mellitus without complication 880277911 Active 2019 Obie Ahumada MD Attn: Claudia avelar,[address], [place], [address], [facility] 0 14:20:13 Notes:Some problems listed i n Documents: #[id number], #[id number] could not be added to this patient's chart. Please review these documents and add these problems to the patient's chart manually as needed. Problem Notes None recorded. Procedures Surgical History Date Name Laterality Status Provider Name and Address Organization Details Recorded Time 3 catheter ablation of tissue of heart completed Ne Tracy MA [facility] 11/08/2023 14:29:01 cataract surgery completed Ne Tracy MA [facility] 01/10/2024 14:41:42 Imaging Results None recorded. Procedure Notes None recorded. Medical Equipment None Reported. Allergies Allergen ID Allergen Name Allergen Category Reaction Reaction Severity Criticality Documentation Date Start Date Code Code System Note Provider Name and Address Organization Details Recorded Time 834173 codeine medicatio n Not available Not available Not available 01/24/2019 2670 [facility] Cindy Guzman MA null, [place] - [facility] 9 16:12:01 Medications Name Sig Start Date [...] Available Not Available furosemide 40 mg tablet one tab po q d 2024 active Not Available Not Available Not Avai lable metformin 500 mg tablet TAKE 1 TABLET BY MOUTH TWICE DAILY 11/23 completed Not Available Not Available Not Available atorvastati n 20 mg tablet one tab po q d 2024 active Not Available Not Available Not Avai lable cetirizine 10 mg tablet TAKE 1 TABLET [...] TAKE 1 TABLET BY MOUTH EVERY DAY 04/01 completed Not Available Not Available Not Available clonidine HCl 0.3 mg tablet 08/26 [...] Not Available Not Available isosorbide mononitrate ER 60 mg tablet,exte nded release 24 hr TAKE 1 TABLET BY MOUTH EVERY DAY active Not Available Not Available No t Available clonidine HCl 0.2 mg tablet TAKE [...] Not Available Not Available Not Available hydralazine 100 mg tablet Take 1 [...] Available Not Available losartan 100 mg tablet one tab po q d 2024 active Not Available Not Available Not Avai lable fluticasone propionate 50 mcg/actuati on nasal spray,suspe nsion SHAKE LIQUID AND USE 1 SPRAY IN EACH NOSTRIL TWICE DAILY 02/18 completed Not Available Not Available Not Available calcitriol 0.25 mcg capsule TAKE 1 CAPSULE BY MOUTH EVERY WEEK IN THE MORNING 04/01 completed Not Available Not Available Not Available Microlet Lancet USE TO TEST BLOOD SUGAR EVERY MORNING active Not Available Not Available No [...] TAKE 1 CAPSULE BY MOUTH ONCE DAILY active Not Available Not Available No t Available Eliquis 5 mg tablet one tab po bid 2024 active Not Available Not Available Not Avai lable ergocalcife rol (vitamin D2) 50 mcg (2,000 unit) capsule Take 1 capsule every day by oral route in the morning for 90 days. 2024 active Not Available Not Available Not Avai lable OneTouch Delica Plus Lancet 33 gauge USE TO TEST BLOOD SUGAR ONCE DAILY active Not Available Not Available No t Available Rybelsus 14 mg tablet one tab po q d 2024 active Not Available Not Available Not Avai lable Rybelsus 7 mg tablet TAKE 1 TABLET BY MOUTH EVERY DAY active Not Available Not Available No t Available Rybelsus 3 mg tablet TAKE 1 TABLET BY MOUTH EVERY DAY 05/15 completed Not Available Not Available Not Available Ozempic 0.25 mg or 0.5 mg (2 mg/3 mL) subcutaneou s pen injector INJECT 0.25 MG UNDER THE SKIN ONCE A WEEK FOR 4 WEEKS THEN INCREASE TO 0.5 MG ONCE A WEEK 11/28 completed Not Available Not Available Not Available Contour Plus Test Strip USE TO CHECK FASTING BLOOD SUGAR LEVELS EVERY MORNING active Not Available Not Available No t Available Contour Plus Blue Meter USE TO CHECK BLOOD SUGAR EVERY MORNING active Not Available Not Available No t Available Vitals Date Recorded Body height Body mass index (BMI) Body weight Oxygen saturation Heart rate Body temperature Systolic And Diastolic Provider Name and Address Organization Details Last Updated DateTime 5 157.48 cm 43.9 kg/m2 952913. 17 g 97 % 71 /min 97.1 [degF] 122/78 mm[Hg] Ne Tracy MA [facility] 5 16:57:08 Date Recorded Body height Body mass index (BMI) Body weight Oxygen saturation Heart rate Body temperature Systolic And Diastolic Provider Name and Address Organization Details Last Updated DateTime 5 157.48 cm 44.3 kg/m2 197124. 35 g 97 % 84 /min 96.9 [degF] 128/70 mm[Hg] Jeannette [place] MA [facility] 5 13:47:22 Date Recorded Body height Body mass index (BMI) Body weight Oxygen saturation Heart rate Body temperature Systolic And Diastolic Provider Name and Address Organization Details Last Updated DateTime 5 157.48 cm 46.1 kg/m2 997024. 28 g 96 % 74 /min 97.1 [degF] 128/68 mm[Hg] Brittany Vega MA [facility] 5 17:11:22 Date Recorded Body height Body mass index (BMI) Body weight Oxygen saturation Heart rate Respiratory rate Body temperature Systolic And Diastolic Provider Name and Address Organization Details Last Updated DateTime 5 157.48 cm 45.9 kg/m2 967372. 68 g 97 % 77 /min 18 /min 97.1 [degF] 124/76 mm[Hg] Ne Tracy MA [facility] 5 17:00:29 Date Recorded Body height Body mass index (BMI) Body weight Provider Name and Address Organization Details Last Updated DateTime 06/12/2025 157.48 cm 45.9 kg/m2 535548.68 g Brittany Vega MA [facility] 06/12/2025 16:05:10 Social History Question Answer Notes LastModified by Organizat ion Details LastModified Time Tobacco Smoking Status Never Smoker Mervin Vega MA null, [facility] 10/16/2014 15:43:23 Do You Have An Advance Directive? No Information n ot available 01/31/2024 Are You Blind Or Do You Have Difficulty Seeing? No Information n ot available 10/29/2021 What Is Your Level Of Caffeine Consumption? Occasional Information not available 10/29/2021 In The 14 Days Before Symptom Onset, Have You Had Close Contact With A Laboratory-confirm ed COVID-19 While That Case Was Ill? No Information n ot available 10/29/2021 In The 14 Days Before Symptom Onset, Have You Had Close Contact With A Person Who Is Under Investigation For COVID-19 While That Person Was Ill? No Information not available 10/29/2021 Have You Been To An Area Known To Be High Risk For COVID-19? Yes Information not available 10/29/2021 Are You Deaf Or Do You Have Serious Difficulty Hearing? No Information not available 10/29/2021 What Type Of Diet Are You Following? REGULAR Information n ot available 10/29/2021 What Is The Highest Grade Or Level Of School You Have Completed Or The Highest Degree You Have Received? SE95461-1 Information not available 10/30/2024 Are There Any Guns Present In Your Home? No Information not available 10/29/2021 Do You Have A Medical Power Of Transport Operations Inspector? No Information not available 01/31/2024 What Was The Date Of Your Most Recent Tobacco Screening? 05/15/2025 Information not available 05/15/2025 Do You Use Your Seat Belt Or Car Seat Routinely? Yes Information not available 10/29/2021 Do You Have Smoke And Carbon Monoxide Detectors In Your Home? Yes Information not available 10/29/2021 How Much Tobacco Do You Smoke? No Information not available 11/16/2019 Do You Use Sunscreen Routinely? No Information not available 10/29/2021 Has Tobacco Cessation Counseling Been Provided? Yes [email or web address] Information not available 06/21/2022 On What Date Was Tobacco Cessation Counseling Provided? 05/15/2025 Information not available 05/15/2025 How Many Years Have You Smoked Tobacco? 0 Information not available 11/16/2019 Sex: Female Functional Status Question Answer Note LastModified by Organizat ion Details LastModified Time Do you use any illicit or recreational drugs? No Information not available 10/29/2021 Do you or have you ever used any other forms of tobacco or nicotine? No Information not available 07/30/2021 What is your level of alcohol consumption? None Information not available 07/30/2021 Do you or have you ever used smokeless tobacco? Never used smokeless tobacco Information not available 11/16/2019 Are you currently employed? No Information not available 10/30/2024 Are you able to care for yourself independently? Yes Information not available 10/29/2021 Do you or have you ever used e-cigarettes or vape? Never used electronic cigarettes Information not available 11/16/2019 Mental Status None recorded. Family History Nothing Reported. Medical History No medical history recorded. Gynecological HistoryNo gynecological history recorded. Obstetrics History GPAL:G 0 P 0 0 0 0 Immunizations Vaccine Type Date Status Note Provider Nam e and Address Organization Details Recorded Time COVID-19, mRNA, LNP-S, PF, 30 mcg/0.3 mL dose 10/06/2020 completed Not Available [facility] 07:21:45 COVID-19, mRNA, LNP-S, PF, 30 mcg/0.3 mL dose 10/24/2020 completed Not Available [facility] 07:21:45 COVID-19, mRNA, LNP-S, PF, 30 mcg/0.3 mL dose 08/03/2021 completed Iraida Hall MA null, [place] - [facility] 08/03/2021 15:23:15 COVID-19, mRNA, LNP-S, bivalent, PF, 30 mcg/0.3 mL dose 06/23/2022 completed Iraida Hall MA [facility], [place] - [facility] 06/23/2022 15:07:53 Past Encounters Encounter ID Performer Location Encounter Start Date Encounter Closed Date Diagnosis/Indication Diagnosis SNOMED-CT Code Diagnosis ICD10 Code Diagnosis IMO Codes Diagnosis Note [id number] Kavita Levy MD [facility] (Adult Med) [address] [place] [phone] 10/16/2014 15:25:36 10/16/2014 16:18:09 Essential hypertension 07553247 [id number] Kavita Levy MD [facility] (Adult Med) [address] [place] [phone] 04/18/2015 16:24:45 04/22/2015 15:00:21 Systolic hypertension 27137996 [id number] Kavita Levy MD [facility] (Adult Med) [address] [place] [phone] 06/24/2015 11:33:33 06/24/2015 13:10:30 Essential hypertension 75185415 I10 Screening mammography 24 280291 Z12.31 [id number] Kavita Levy MD [facility] (Adult Med) [address] [place] [phone] 02/17/2016 15:58:14 02/17/2016 17:19:42 Essential hypertension 37836966 I10 Systolic hypertension 56 353761 I10 [id number] MD [facility] (Adult Med) [address] [place] [phone] 08/26/2016 14:11:32 08/26/2016 14:54:42 Systolic hypertension 16410752 I10 On examina tion - edema of legs 278310031 R60.0 Essential hypertension 86441509 I10 Edema of l ower extremity 168346414 R60.0 [id number] MD [facility] (Adult Med) [address] [place] [id number] 02/23/2017 09:34:10 02/23/2017 11:35:25 Systolic hypertension 57134793 I10 Low salt diat, exercise and lose weight, will adjust her medication s. Morbid obesity 024576514 E66.01 Diet. exercise, lose weight, will try wellbutrin and naltrexone . ? Metabolic syndrom X Screening mammography 24 809580 Z12.31 Screening for malignant neoplasm of colon 921087875 Z12.11 Edema of l ower extremity 344475043 R60.0 Low salt diet, too hot of weather to wear stockings. Hypertensi ve heart disease 77529269 I11.9 Hypertensi ve, legs edema, sometime has shortness of breath and history of elevated BNP. Hyperglycemia 66143230 R 73.9 [id number] [facility] [address] [place] [id number] 04/26/2017 16:23:03 04/26/2017 18:24:32 Pain of shoulder region 45718606 M25.512 Resolved.L ef tside. Essential hypertension 19572720 I10 Well controlled . recheck BP today in sitting position, right arm with adult big cuff the reading was 140/78 mmHG. Will continue low salt diet and refills of medication s. Systolic hypertension 56 283190 I10 Low salt diat, exercise and lose weight, will adjust her medication s. Edema of l ower extremity 120882567 R60.0 Low salt diet, too hot of weather to wear stockings. Today she has no edema tody, but will maintain the water pill. Dyslipidemia 481062796 E 78.5 Low saturated fat diet, exercise and lose weight. Morbid obesity 153789826 E66.01 Diet, exercise and lose weight . Type 2 viviana betes mellitus without complication 462116083 E11.9 Administra tion of influenza vaccine 70788523 Z23 Patient refuses. [id number] Kavita Levy MD [facility] (Adult Med) [address] [place] [id number] 08/15/2017 15:28:00 08/15/2017 16:35:00 Type 2 diabetes mellitus 12767533 E11.9 Diabetic diet, exercise and keep the weight down. Office F/U in 2 months and do the fasting bloodtest prior to that.hD EYE EX. IN june 2017 AND WAS TOLD THAT SHE HAS CATARACTS BUT NO RETINOPATH Y. Edema of l ower extremity 359700758 R60.0 Low salt diet, too hot of weather to wear stockings. Today she has no edema tody, but will maintain the water pill. Systolic hypertension 56 180296 I10 Low salt diat, exercise and lose weight, will adjust her medication s. Type 2 viviana betes mellitus without complication 272212388 E11.9 Dyslipidemia 445972202 E 78.5 Low saturated fat diet, exercise and lose weight. [id number] Kavita Levy MD [facility] (Adult Med) [address] [place] [id number] 02/13/2018 16:36:15 02/14/2018 10:04:21 Type 2 diabetes mellitus 00772925 E11.9 Diabetic diet, exercise and keep the weight down. Office F/U in 2 months and do the fasting bloodtest prior to that.hD EYE EX. IN june 2017 AND WAS TOLD THAT SHE HAS CATARACTS BUT NO RETINOPATH Y. HgA1C is 5.8% today 02-13-2018 . Patient informed. Type 2 viviana betes mellitus without complication 903580738 E11.9 Essential hypertension 76696914 I10 Well controlled . recheck BP today in sitting position, right arm with adult big cuff the reading was 140/78 mmHG. Will continue low salt diet and refills of medication s. 130/70 mmhg 02-13-2018 . 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 Edema of l ower extremity 124652905 R60.0 Low salt diet, too hot of weather to wear stockings. Today she has no edema tody, but will maintain the water pill. Dyslipidemia 204210501 E 78.5 Low saturated fat diet, exercise and lose weight. Screening mammography 24 394995 Z12.31 Screening for malignant neoplasm of cervix 199139732 Z12.4 Screening colonoscopy 44 0948221 Z12.11 She had unremarkab le colonoscop y ex. about 6 years ago. Morbid obesity 873929606 E66.01 Diet, exercise and lose weight . [id number] MD [place] [facility] (Adult Med) [address] [place] [phone] 08/17/2018 11:51:36 08/18/2018 12:10:39 Essential hypertension 66753886 I10 Well controlled . recheck BP today in sitting position, right arm with adult big cuff the reading was 140/78 mmHG. Will continue low salt diet and refills of medication s. 130/70 mmhg 02-13-2018 . Edema of l ower extremity 289113410 R60.0 Low salt diet, too hot of weather to wear stockings. Today she has no edema tody, but will maintain the water pill. Systolic hypertension 56 474278 I10 Low salt diat, exercise and lose weight, will adjust her medication s. Type 2 viviana betes mellitus 92925551 E11.9 Diabetic diet, exercise and keep the weight down. Office F/U in 2 months and do the fasting bloodtest prior to that.hD EYE EX. IN june 2017 AND WAS TOLD THAT SHE HAS CATARACTS BUT NO RETINOPATH Y. HgA1C is 5.8% today 02-13-2018 . Patient informed. 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 Type 2 viviana betes mellitus without complication 281404990 E11.9 Blood sugar is 76 mg%. [id number] Kavita Levy MD [facility] (Adult Med) [address] [place] [phone] 01/24/2019 15:33:57 01/24/2019 16:35:34 Essential hypertension 13014055 I10 Well controlled . recheck BP today in sitting position, right arm with adult big cuff the reading was 140/78 mmHG. Will continue low salt diet and refills of medication s. 130/70 mmhg 02-13-2018 . Type 2 viviana betes mellitus without complication 991765576 E11.9 Blood sugar is 76 mg%., DM is well controlled . Morbid obesity 633413940 E66.01 Diet, exercise and lose weight . Systolic hypertension 56 683916 I10 Low salt diat, exercise and lose weight, will adjust her medication s. Dyslipidemia 546929259 E 78.5 Low saturated fat diet, exercise and lose weight. Edema of l ower extremity 204113820 R60.0 Low salt diet, too hot of weather to wear stockings. Today she has no edema tody, but will maintain the water pill. [id number] MD Jersey Shelton (Adult Med) [address] [place] [address] [phone] 0 07/30/2019 17:02:05 07/30/2019 17:57:21 Type 2 diabetes mellitus without complication 390088495 E11.9 Blood sugar is 76 mg%., DM is well controlled . Systolic hypertension 56 325296 I10 Low salt diat, exercise and lose weight, will adjust her medication s. Dyslipidemia 929418302 E 78.5 Low saturated fat diet, exercise and lose weight. Acute sinusitis 01881668 J01.90 [id number] Obie Ahumada MD [facility] (Adult Med) [address] [place] [address] [phone] 0 11/16/2019 13:04:03 11/19/2019 11:38:19 Benign essential hypertension 9955255 I10 Long-term drug therapy 718848155 Z79.899 Type 2 viviana betes mellitus without complication 058499015 E11.9 Systolic hypertension 56 997565 I10 Edema of l ower extremity 759475098 R60.0 [id number] MD Jersey Shelton (Adult Med) [address] [place] [address] [phone] 0 12/18/2019 11:17:16 12/19/2019 07:38:52 Type 2 diabetes mellitus 50048741 E11.9 Diabetic diet, exercise and keep the weight down. Office F/U in 2 months and do the fasting bloodtest prior to that.hD EYE EX. IN june 2017 AND WAS TOLD THAT SHE HAS CATARACTS BUT NO RETINOPATH Y. HgA1C is 5.8% today 02-13-2018 . Patient informed. Essential hypertension 82232015 I10 Well controlled . recheck BP today in sitting position, right arm with adult big cuff the reading was 140/78 mmHG. Will continue low salt diet and refills of medication s. 130/70 mmhg 02-13-2018 . Dyslipidemia 746266211 E 78.5 Low saturated fat diet, exercise and lose weight. Systolic hypertension 56 055471 I10 Low salt diat, exercise and lose weight, will adjust her medication s. [id number] MD Jersey Shelton (Adult Med) [address] [place] [address] [phone] 02/29/2020 08:09:29 03/04/2020 06:47:41 Essential hypertension 66212931 I10 Well controlled . recheck BP today in sitting position, right arm with adult big cuff the reading was 140/78 mmHG. Will continue low salt diet and refills of medication s. 130/70 mmhg 02-13-2018 . Type 2 viviana betes mellitus without complication 258479639 E11.9 Blood sugar is 76 mg%., DM is well controlled . [id number] MD Jersey Shelton (Adult Med) [address] [place] [address] [phone] 0 06/03/2020 08:33:07 06/04/2020 10:56:33 Benign essential hypertension 4516275 I10 Low salt diet, if possible, avoid OTC NSAID, or decongesta nt. Type 2 viviana betes mellitus without complication 619021952 E11.9 Blood sugar is 76 mg%., DM is well controlled . Last HgA1 c was 5.6%. Dyslipidemia 042368881 E 78.5 Low saturated fat diet, exercise and lose weight. Systolic hypertension 56 779769 I10 Low salt diat, exercise and lose weight, will adjust her medication s. Type 2 viviana betes mellitus 87916551 E11.9 Diabetic diet, exercise and keep the weight down. Office F/U in 2 months and do the fasting bloodtest prior to that.hD EYE EX. IN june 2017 AND WAS TOLD THAT SHE HAS CATARACTS BUT NO RETINOPATH Y. HgA1C is 5.8% today 02-13-2018 . Patient informed. [id number] MD Jersey Shelton (Adult Med) [address] [place] [address] [phone] 08/13/2020 08:09:16 08/14/2020 10:14:51 Essential hypertension 24547742 I10 Well controlled . recheck BP today in sitting position, right arm with adult big cuff the reading was 140/78 mmHG. Will continue low salt diet and refills of medication s. 130/70 mmhg 02-13-2018 . Type 2 viviana betes mellitus without complication 253240848 E11.9 Blood sugar is 76 mg%., DM is well controlled . Last HgA1 c was 5.6%. [id number] MD Jersey Shelton (Adult Med) [address] [place] [address] [phone] 0 02/09/2021 08:46:58 02/10/2021 14:44:58 Essential hypertension 94711524 I10 Well controlled . recheck BP today in sitting position, right arm with adult big cuff the reading was 140/78 mm HG. Will continue low salt diet and refills of medication s. 130/70 mm Hg 02-13-2018 . Type 2 viviana betes mellitus without complication 404034372 E11.9 Blood sugar is 76 mg%., DM is well controlled . Last HgA1 c was 5.6%. Dyslipidem ia due to type 2 diabetes mellitus 0871331727 02 E78.5 Low animal fat diet. low saturated fat diet. Coronary atherosclerosis 732670119 I25.10 Under the care of her cardiologi st. [id number] MD Jersey Shelton (Adult Med) [address] [place] [address] [phone] 0 07/30/2021 16:41:22 07/31/2021 12:19:22 Benign essential hypertension 3922958 I10 Low salt diet, if possible, avoid OTC NSAID, or decongesta nt. Essential hypertension 28688759 I10 Well controlled . recheck BP today in sitting position, right arm with adult big cuff the reading was 140/78 mm HG. Will continue low salt diet and refills of medication s. 130/70 mm Hg 02-13-2018 . BP reading 120/70 mm Hg. -07-30-2021 . Renewal of prescription 464538488 Z76.0 Coronary atherosclerosis 968640604 I25.10 Under the care of her cardiologi st. Dyslipidem ia due to type 2 diabetes mellitus 6561104417 02 E78.5 Low animal fat diet. low saturated fat diet. [id number] MIRIAM PERKINS (Peds) [address] [place] [address] [phone] 0 08/03/2021 15:07:43 08/04/2021 08:42:22 Administration of SARS-CoV-2 mRNA vaccine 3171236906 Z23 [id number] MD Jersey Shelton (Adult Med) [address] [place] [address] [phone] 0 10/29/2021 14:15:59 11/02/2021 12:24:01 Screening for malignant neoplasm of colon 642884733 Z12.11 She agreed. Screening for malignant neoplasm of breast 425001842 Z12.39 She agreed. Benign ess ential hypertension 7556049 I10 Low salt diet, if possible, avoid OTC NSAID, or decongesta nt. 10-26-2021 blood pressure reading is 160/84 mm HG. Diue to running out of medication s. Type 2 viviana betes mellitus without complication 750007669 E11.9 Blood sugar is 76 mg%., DM is well controlled . Last HgA1 c was 5.6%. Renewal of prescription 522437294 Z76.0 Dyslipidem ia realted to type2 DM Seasonal allergy 0525452 04 J30.2 Coronary atherosclerosis 912951569 I25.10 Under the care of her cardiologi st. [id number] Kavita Levy MD [facility] (Adult Med) [address] [place] [address] [phone] 0 02/18/2022 16:23:23 02/19/2022 15:06:04 Type 2 diabetes mellitus without complication 731271360 E11.9 Blood sugar is 76 mg%., DM is well controlled . Last HgA1 c was 5.6%. Type 2 viviana betes mellitus 20181719 E11.9 Diabetic diet, exercise and keep the weight down. Office F/U in 2 months and do the fasting blood test prior to that.Had EYE EX. IN JUNE 2017 AND WAS TOLD THAT SHE HAS CATARACTS BUT NO RETINOPATH Y. HgA1C is 5.8% today 02-13-2018 . Patient informed.A s 22, her A!c is 5.5 %. Essential hypertension 03927609 I10 Well controlled . recheck BP today [...] ia due to type 2 diabetes mellitus 1729223304 02 E78.5 Low animal fat diet. low saturated fat diet. Morbid obesity 006405083 E66.01 Diet, exercise and lose weight . Coronary atherosclerosis 843765174 I25.10 Under the care of her cardiologi st. [id number] MD Jersey Shelton (Adult Med) [address] [place] [address] [phone] 0 06/21/2022 16:35:40 06/25/2022 13:18:44 Type 2 diabetes mellitus without complication 670769235 E11.9 Blood sugar is 76 mg%., DM is well controlled . Last HgA1 c was 5.6%. Coronary atherosclerosis 847551135 I25.10 Under the care of her cardiologi st. Dyslipidem ia due to type 2 diabetes mellitus 6413043374 02 E78.5 Low animal fat diet. low saturated fat diet. Essential hypertension 08201934 I10 Well controlled . recheck BP today in sitting position, right arm with adult big cuff the reading was 140/78 mm HG. Will continue low salt diet and refills of medication s. 130/70 mm Hg 02-13-2018 . BP reading 120/70 mm Hg. -07-30-2021 . As 02-18-2022 , blood pressure is 132/86 .Will continue same regimen, and monitor blood pressure. HIV screening 822373140 Z11.4 She refuses. 06-21-2022 . Screening for malignant neoplasm of colon 543317531 Z12.11 She refuses 06-21-2022 . Influenza vaccination declined 436050297 Z28.21 She refuses, 06-21-2022 . Mammogram declined 44631 5004 Z53.20 She refuses 06-21-2022 . [id number] MIRIAM PERKINS (Peds) [address] [place] [address] [phone] 06/23/2022 14:37:51 06/24/2022 10:23:20 Administration of SARS-CoV-2 antigen vaccine 234634485 Z23 [id number] MD Jersey Shelton (Adult Med) [address] [place] [address] [phone] 0 02/11/2023 15:28:00 02/14/2023 14:30:08 Benign essential hypertension 9708232 I10 Low salt diet, if possible, avoid OTC NSAID, or decongesta nt. 10-26-2021 blood pressure reading is 160/84 mm HG. Due to running out of medication s. And OTC decongesta nt. Type 2 viviana betes mellitus without complication 494493152 E11.9 Blood sugar is 76 mg%., DM is well controlled . Last HgA1 c was 5.6%. Screening for malignant neoplasm of colon 111327841 Z12.11 She refuses 06-21-2022 . But today 02-11-23, she agreed for the screening. She dose not remember the year she had negative conoscopic ex. 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 low saturated fat diet. Essential hypertension 34492926 I10 Well controlled . recheck BP today [...] cuff might be to small. Coronary atherosclerosis 194662070 I25.10 Under the care of her cardiologi st. Morbid obesity 343850673 E66.01 Diet, exercise and lose weight . As 02-11-23. BMI is 44.8 today, advised her to watch her low salt diabetic diet, exercise, and lose weight. [id number] Kavita Levy MD [facility] (Adult Med) [address] [place] [phone] 06/13/2023 14:19:32 06/13/2023 15:07:44 Type 2 diabetes mellitus 05863304 E11.9 Diabetic diet, exercise and keep the weight down. Office F/U in 2 months and do the fasting blood test prior to that.Had EYE EX. IN JUNE 2017 AND WAS TOLD THAT SHE HAS CATARACTS BUT NO RETINOPATH Y. HgA1C is 5.8% today 02-13-2018 . Patient informed.A s - 22, her A!c is 5.5 %. Essential hypertension 36607541 I10 Well controlled . recheck BP today [...] ia due to type 2 diabetes mellitus 2039781299 02 E78.5 Low animal fat diet. low saturated fat diet. Obesity 319455571 E66.9 BMI 42.7 06-13-23. Diet, exercise, and lose weight. she agreed to try. 06-13-23. Supraventr icular tachycardia 9847491 I47.19 Under the care of her cardiologi st. Mammogram declined 61626 5004 Z53.20 She refuses 06-21-2022 . Colon canc er screening declined 3274477459 9109 Z53.20 She declined 06-13-23 Influenza vaccination declined 619777325 Z28.21 She refuses, 06-21-2022 . She qlafxxs2f today 06-13-23. [id number] Fiona Guzman MD [facility] (Adult Med) [address] [place] [address] [phone] 0 11/08/2023 14:17:47 11/11/2023 12:40:29 Obesity 249520357 E66.9 Essential hypertension 96429433 I10 Has not had blood work in some time. Will return for fasting blood work. Coronary atherosclerosis 359120480 I25.10 Type 2 viviana betes mellitus 39042648 E11.9 Well controlled . Would like to increase statin but will wait until we make sure liver function tests are normal. Discussed with patient. Body mass index 40+ - severely obese 083647910 Z68.41 Discussed diet and exercise. Has been working on diet. Has not been exercising . Recommende d goal of thirty minutes six days a week. Recommende d less carbohydra scott and more protein and fiber. She is already eating chicken and fruit and drinks diet soda. If she is not able to get much response with exercising consider adding medication . [id number] Fiona Guzman MD [facility] (Adult Med) [address] [place] [address] 01/10/2024 14:19:31 01/16/2024 11:45:47 Body mass index 40+ - severely obese 783139643 Z68.41 Discussed lifestyle changes. Patient was limited [...] options. Serum crea tinine outside reference range 504546662 R79.89 Probably secondary to diabetes and hypertensi on. Creatinine and GFR have increased since 2018. Albumin/cr eatinine ratio is not increased. Advised patient to stay well hydrated and avoid anti-infla mmatories. Will avoid repeating blood work because patient is a hard stick and expect it to be done at nephrologi st visit. Follow up in three months. Hyperlipidemia 22118997 E78.5 Increase Atorvastat in to 20 mg a day to get to a goal LDL of 70. Repeat lipids and liver profile at follow up. Discussed side effects with patient. Type 2 viviana betes mellitus 76957563 E11.9 Last hemoglobin A1C excellent. Continue Metformin. May want to consider adding a SGLT2 inhibitor for renal protection . Will discuss further after sees nephrologi st. Cataract 365940847 H26.9 Had recent cataract surgery. Having complicati ons. Following with ophthalmol ogist. Osteoarthr itis of right knee joint 6840849085 59038 M17.11 Pain improving since recent fall. Takes Tylenol when needed. Increasing activity again. Coronary atherosclerosis 516408681 I25.[address] Essential hypertension 07608982 I10 Blood pressure controlled . Blood work done in October. Seeing Nephrologi st to evaluate renal disease. [id number] Jony Santa MD [facility] ([facility]) [address] [place] [address] [phone] 2 01/31/2024 14:06:36 02/01/2024 12:37:21 Chronic kidney disease stage 3 580279592 N18.30 Pt appears to have ckd3 (egfr 45ml/min), ckd prob sec to underlying h/o h/o htn/?dm.PE sig for iobesity.B P high today.BP 150/75 mmhg at home tis am.Pt on losartan,h ydralazine ,furosemid e,hydralaz ine Essential hypertension 26369182 I10 BP high today,was high at home this am as well(per pt sbp over 140mmhg).p on multiple bp medsNeed to exclude renovasc htn. Type 2 viviana betes mellitus 17684210 E11.9 cont metformin as long as egfr remains above 30ml/min Obesity 647625753 E66.9 work on wt reduction History of radiofrequency ablation operation for arrhythmia 205802092 Z98.890 pt on eliquis,no known diagnosis of Afib( per pt).Plan per cardiology [id number] Fiona Guzman MD [facility] (Adult Med) [address] [place] [address] 04/12/2024 11:16:15 04/13/2024 10:31:49 Type 2 diabetes mellitus 14275796 E11.9 Will stop Metformin and start Ozempic [...] arthritis. Chronic ki dney disease stage 3 392738818 N18.30 Had blood tests and ultrasound ordered by Nephrologi st but do not have the results. Will get them from [place]. Body mass index 40+ - severely obese 427046356 Z68.41 Patient has worked on lifestyle changes but still struggling to loose weight. Will add Ozempic to see if this helps and it will also help sugars. Osteoarthr itis of knee 133891114 M17.9 Osteoarthr itis of knees. Will try Ozempic to help with weight loss to see if this helps with arthritic pain. Essential hypertension 47141492 I10 Blood pressure well controlled today. Continue present medication . Coronary atherosclerosis 541985650 I25.[address] Hyperlipidemia 05993112 E78.5 Atorvastat in has been increased to 20 mg. Will repeat a lipid at follow up. Will see if we can add a liver function panel to thyroid test. Abdominal aortic aneurysm 014017832 I71.40 Repeat ultrasound and carotid doppler in September 2024. Atrial flutter 1969878 I 48.92 History of atrial flutter per cardiology note. In sinus rhythm in the office today. [id number] Jony Santa MD [facility] ([facility]) [address] [place] [address] [phone] 2 06/19/2024 11:50:07 06/25/2024 15:13:21 Chronic kidney disease stage 3 630974694 N18.30 Pt appears to have ckd3 (egfr 57ml/min), ckd prob sec to underlying h/o h/o htn/?dm.cr eat/egfr better this time,creat down and egfr up.PE sig for obesity.BP high today.BP 150/78 mmhgPt on losartan,h ydralazine ,furosemid e,hydralaz ineVit D LEVEL LOW,PTH HIGH NOTEDNo renal us result noted.per pt no order received. Type 2 viviana betes mellitus 43915533 E11.9 cont metformin as long as egfr remains above 30ml/min Essential hypertension 26978402 I10 BP remains high..Pt on multiple bp medsNeed to exclude renovasc htn.Renal artery duplex study not doneIncrea se dose of hydralazin e to 100 mg tid Obesity 078416684 E66.9 work on wt reduction Vitamin D deficiency 347 38525 E55.9 cont vit d supplement Hyperparat hyroidism due to renal insufficiency 77712845 N25.81 cont rocaltrol [id number] MD Jersey Gomez (Adult Med) [address] [place] [address] [phone] 0 07/09/2024 15:15:46 07/12/2024 15:10:44 Cardiac arrhythmia 109791032 I49.9 History of atrial flutter. Ectopy heard on exam today. Will get twenty four hour holter and then patient will follow up. No chest pain or shortness of breath. Hyperlipidemia 54078804 E78.5 Will check lipid and CMP. If abnormal may need to repeat fasting. Type 2 viviana betes mellitus 73002839 E11.9 Hemoglobin A1C shows that diabetes is well controlled . Would like to try to add GLP-1 to help with weight management , kidney disease, and glucose control. Once thyroid work up is done consider GLP-1. For now continue Metformin. Chronic sammy dney disease stage 3 913556840 N18.30 Seeing nephrology . Ordered ultrasound . Normanna like renal disease most likely due to hypertensi on and/or diabetes. Keep well hydrated. Atrial flutter 9940241 I 48.92 History of atrial flutter per cardiology note. In sinus rhythm in the office today. Coronary atherosclerosis 673921577 I25.[address] Essential hypertension 33439306 I10 Blood pressure well controlled today. Continue present medication . [id number] MD Jersey Gomez (Adult Med) [address] [place] [address] [phone] 0 10/22/2024 14:42:33 10/23/2024 11:00:19 Type 2 diabetes mellitus 93376143 E11.9 She saw endocrinol ogist regarding her [...] can always resume Metformin if needed. Chronic sammy dney disease stage 3 475865807 N18.30 Follows with nephsatinder ordoñez. Is due for some blood work. She is also getting blood work here and I am sure some of it is the same so she will drop off the blood work the nephrologjohan ordoñez needs and we can add it to ours. She also had an MRI of her kidney and I will try to get that result. She is destinee avelar seeing a different nephrologi st and I spoke to her about Dr. Fortune. Osteoarthr itis of knee 574989116 M17.9 Osteoarthr itis of knees. Will try Ozempic to help with weight loss to see if this helps with arthritic pain. Essential hypertension 23319568 I10 Blood pressure well controlled today. Continue present medication . Coronary atherosclerosis 004170998 I25.[address] Hyperlipidemia 65814255 E78.5 Last lipids were checked about a year ago. She will come in for fasting blood work and will check lipids. Abdominal aortic aneurysm 929062390 I71.40 Repeat ultrasound and carotid doppler due in September 2024 per cardiology note. Will discuss at follow up. Atrial flutter 0550722 I 48.92 History of atrial flutter. [place] some ectopy on exam. Had holter and it showed some PACs but nothing else. Patient was not symptomati c. [id number] Jony Santa MD [facility] ([facility]) [address] [place] [address] [phone] 2 10/30/2024 13:31:36 12/24/2024 15:09:53 Chronic kidney disease stage 3 555007531 N18.30 Pt appears to have ckd2/3 (egfr 60ml/min), ckd prob sec to underlying h/o h/o htn/?dm.cr eat/egfr better this time,creat down and egfr up.PE sig for obesity.BP high today.BP 160/80 mmhgPt on losartan,h ydralazine ,furosemid e.Vit D LEVEL LOW,PTH HIGH NOTED in 02/2024,no recent pth/vit d level notedResul t of renal us noted,sugvalentino montielive of KIRA lt side,had MRA DONE ON 08/28/2024. Essential hypertension 19425449 I10 BP remains high..Pt on multiple bp medsNeed to exclude renovasc htn.Renal artery duplex study done,ZEYNEP REYNOSO OF lT KIRA,MRA done on 08/28/2024Wi ll check result.Pt did not tolerate Increased dose of hydralazin e 100 mg tid so pt is back on 50mg tid..Rec increasing dose of Diltiazem to 240mg XR daily (if ok with cardiology ,pt advised to check with cardiology first before increasing dose) Vitamin D deficiency 347 33530 E55.9 cont vit d supplement ,check vit d level and adjust dose accordingl y Hyperparat hyroidism due to renal insufficiency 11547393 N25.81 cont rocaltrol .0.25mcg po weekly,nikolay ck pth level,adju st dose accordingl y.Improvem ent of vit d level will also improve pth level Type 2 viviana betes mellitus 23138311 E11.9 cont metformin as long as egfr remains above 30ml/min.C ont losartan.U rine /protein creat ratio wnlOzempic prescribed by pcp,pt has not started yet Obesity 826236193 E66.9 work on wt reduction, pt to start Ozempic soon Microcytic anemia 568145 007 D50.9 check iron studies.b1 2/folic acid level,neelam tor h/hCheck immunofixa tion studies(ur ine and blood) with h/o ckd/anemia Last ua neg for blood Renovascul ar hypertension 057234301 I15.0 abnl renal artery doppler study noted,MRA done,waiti ng for result,if + for KIRA,then will refer to interventi onal radiologis t or cardiologi st [id number] Fiona Guzman MD [facility] (Adult Med) [address] [place] [address] [phone] 0 11/23/2024 11:44:37 11/26/2024 17:41:35 Sprain of left wrist [id number] 7437636 S63.502A 1182417435 Will continue Tylenol as needed. Avoid anti-infla mmatories due to blood pressure. Continue [place] wrap. Will get xray from ER visit. Suspicious for fracture due to significan t pain and mild swelling. If ER x-ray negative will repeat x-ray. Near syncope 321445967 R 55 498873 Patient recently started GLP-1 medication and had [...] follow up in two weeks. Microcytic anemia 607779 007 D50.9 27430 Scheduled for colonoscop y and EGD in January. Type 2 viviana betes mellitus 95819688 E11.9 96064919 Will hold all diabetic medication s and [...] her to eat regular small meals daily. [id number] Fiona Guzman MD [facility] (Adult Med) [address] [place] [address] 12/10/2024 16:49:07 12/11/2024 11:08:59 Vasovagal symptom 220221045 R55 786093 I believe her recent event was vasovagal. It was not a syncopal event where she just dropped. She did not have any lack of awareness or seizure activity so I do not believe it was a seizure. Since she did not eat that morning and she was on the GLP-1 it is possible she had a hypoglycem ic event, although that would be highly unusual with a GLP-1. It is also possible that she was experienci ng a GI side effect to the GLP-1 which caused a vaso vagal reaction. We discussed these possibilit ies. Body mass index 40+ - severely obese 601270077 Z68.41 764169 After discussing possible causes of fall patient would like to try the GLP-1 again, but we are going to proceed with caution. She will check fasting sugars every morning and send them in in a week, and if she feels faint or has GI symptoms she will let me know right away. I also advised her to sit down if she feels light headed or faint. She will follow up in three months. Microcytic anemia 979025 007 D50.9 85882 Scheduled for colonoscop y and EGD in January. Will also be good to check because of her recent episode of stool incontinen ce. Pain of left wrist 02021 63588 01478 M25.532 653871 Slowly improving. [id number] MD Jersey Gomez (Adult Med) [address] [place] [address] [phone] 01/30/2025 13:35:18 01/31/2025 13:13:57 Well controlled type 2 diabetes mellitus 129226738 E11.9 775137 Has been off medication for some time now. Microcytic anemia 299503 007 D50.9 83618 Colonoscop y and EGD moved to March. Last Hgb 9.9. Will repeat CBC today. Atrial flutter 9661523 I 48.92 [id number] Seeing cardiologi . Currently wearing event monitor. Getting echo. Pain of knee region 1003 518867 M25.561 M25.562 G89.29 56756719 Osteoarthr itis. Has had difficulty with GLP-1. Working on weight loss. Syncope 164792355 R55 430001835 Being worked up. Possibly a vasovagal event due to low sugar. No further episodes. Undergoing cardiac work up. Has stopped diabetic medication and monitoring that. [id number] MD [facility] (Adult Med) [address] [place] [address]3573-126 0 04/01/2025 16:42:33 04/02/2025 12:14:18 Body mass index 40+ - severely obese 960139425 Z68.41 011656 Advised her to continue to focus on diet and try to increase exercise. Type 2 viviana betes mellitus 58323881 E11.9 04047096 Fasting sugars range between 130 and 90. Last Hemoglobin A1C was checked in January so it is a little early to repeat it today. She is not experienci ng any light headedness with the Rybelsus. Making sure to eat regular meals. She is not experienci ng the weight loss we had hoped for. Will increase the Rybelsus to 7 mg. Continue to monitor fasting glucose. If she has any issues with low sugar she will let me know. She will follow up in six weeks. Had blood work and urine checked in October. Anemia 442401316 D64.9 6154719 Mild microcytic anemia that is stable. Getting GI work up in March. If no evidence of cause for bleed may consider hemoglobin electropho resis. Osteoarthr itis of knee 881570354 M17.10 530313388 We are hoping the Rybelsus will help with weight loss which will help her knee pain decrease the continued developmen t of arthritis in her knees. Hyperlipidemia 54724788 E78.49 9327162 Last lipid panel checked in October was excellent and LDL was at goal less than seventy. Continue statin. Atrial flutter 3428676 I 48.92 Follows with cardiologi . Recently wore a monitor for a month and no irregular rhythm. Continue Eliquis. Essential hypertension 62341239 I10 Blood pressure well controlled today. Continue present medication . [id number] MD [facility] (Adult Med) [address] [place] [address] [phone] 0 05/15/2025 16:40:09 05/16/2025 12:35:41 Body mass index 40+ - severely obese 187312339 Z68.42 989968 Pain of left wrist 30944 31202 19660 M25.532 026903 Having left wrist pain with slight supination of wrist. Wrist was better after the injury and then started having this pain. Will have her wear an NAPOLEON wrap and try resting the wrist for the next couple of weeks. If it does not improve will proceed with referral to hand specialist or proceed with MRI. Type 2 viviana betes mellitus 04478261 E11.9 Is tolerating the Rybelsus fine but is frustrated because she is not loosing weight. Discussed increasing it to 14 mg but she wants to give the 7 mg another month. She will come in in one month for a nurse visit for a weight check and if her weight is not moving will increase the dose. Chronic ki dney disease stage 3 627441942 N18.30 7216627121 Has appointmen t with the nephrologi st in June. Needs this blood work two weeks before appointmen t. Will get blood work here and take it to the nephrologi st appointmen trina. Pain of sa croiliac joint 954331440 M53.3 117601 Area where she has periodic back pain is the SI joint. Reassured her this is musculoske letal pain. Anemia 835168078 D64.9 19940125 Had colonoscop y and EGD but I do not have results. Will get results. If no evidence of cause for bleed may consider hemoglobin electropho resis. Dizziness 287995126 R42 16240 Has not been dizzy or had syncopal episodes. Saw cardiologi st and asked about event monitor that was done and the cardiologi st said I would have the result. I reviewed the cardiologi st note and he said he was waiting for the result of the monitor and that is the last note I see. I will reach out to the cardiologi st. Hyperlipidemia 65670460 E78.49 Last lipid panel checked in October was excellent and LDL was at goal less than seventy. Continue statin. Essential hypertension 14364490 I10 Blood pressure well controlled today. Continue present medication . Atrial flutter 8640737 I 48.[address] Recently wore an event monitor and wasn't told the result. Last cardiologi st note I have says waiting on the result. I will reach out to cardiologi st to see if I can get result. [id number] Fiona Guzman MD [facility] (Adult Med) [address] [place] [phone] 06/12/2025 15:44:50 06/13/2025 09:33:46 Type 2 diabetes mellitus 62458386 E11.9 42331909 Weight is unchanged. Will increase Rybelsus to 14 mg one tab po q d. Has follow up appointchinyere t in August. Health Concerns Section Related Observation LastModified by Organization Detai ls LastModified Time None Recorded Concern Status LastModified by Organization Details LastModified Time None Recorded Advance Directives Directive N: Payers Insurance Date Sequence Insurance Name Policy Number Policy Leigh Covered Member ID Leigh Member ID Guarantor Name 10/29/2021 1 [employer] [id number] Radha Gupta [id number] Radha Gupta 10/29/2021 1 [facility] - OPEN ACCESS (POS) [id number] Radha Gupta [id number] Radha Gupta 06/09/2025 1 [facility] (MEDICARE REPLACEMENT/ ADVANTAGE - HMO) [id number] Radha Gupta [id number] Radha Gupta 10/29/2021 1 [employer] (PPO) [id number] Radha Gupta [id number] Radha Gupta Notes Date Note Type Note Provider Name and Address Organization Details Recorded Time 12/10/2024 text/html ROS as noted in the HPI follow up, when had reaction was only on the GLP medication and had been off the Metformin for about a month, has not had any further reactions or GI issues, has colonoscopy scheduled for January, when she had the reaction happen she had not ate all morning and was sitting at a table eating some crackers and drinking a couple sips of soda when she felt woozy, she felt like she was going to have to go to the bathroom to have a bowel movement but would not describe it as pain or cramping, got up to go to the bathroom and started to fall down, did not loose consciousness but had a bowel movement that was loose but not liquid, was able to stand up and get to the bathroom, was aware the whole time, no issues since then, has not been on GLP-1, brought in fasting glucose levels, they are between 90 and 124, wrist is continuing to improve Fiona Guzman MD Attn: [address] [place], [address], [facility] 12/10/2024 18:31:50 01/30/2025 text/html follow up, no passing out or feeling light headed, not on any diabetic medication, had felt a little queezy after last dose of Ozempic, last couple weeks highest fasting glucose has been 120, ranging between 90 to 108, knees hurt if sit too long or when getting up and down, colonoscopy has been moved to April 04 because the person that is doing it wants to make sure testing is completed, coming in tomorrow for echo, has follow up for thyroid Fiona Guzman MD Attn: Accounting[address] [place], [address], [facility] 01/30/2025 18:52:33 04/01/2025 text/html ROS as noted in the HPI follow up, taking Rybelsus, doing fine with it, not feeling light headed, has not been doing much exercising, was wearing heart monitor for a month and did not exercise while she was wearing it, eating is the same, trying to incorporate more fruit and vegetables, heart monitor was fine without concerns, sugars at home good, highest one was 130, lowest one 90, scheduled for colonoscopy this , some pain with knees but it is not constant and it is not limiting, more the left knee, cool weather it is worse, not daily, Fiona Guzman MD Attn: [address] [facility], [place], [address], [facility] 04/01/2025 19:34:43 05/15/2025 text/html ROS as noted in the HPI follow up, has only lost one pound on the Rybelsus, has been on the seven milligrams for one month, having pain in wrist that was injured, left handed, sometimes it aches, when turns hand in hurts in forearm, two days before appointment with Dr. Steve he said needed blood work, said she would have to go to a blood drawing place that was a distance from home, was wearing heart monitor for a month from the informatics developer and he did not tell her the result of the heart monitor, sometimes has issues with back aches, has pain in the right lower back Fiona Guzman MD Attn: Accounting[address] [place], [address], [facility] 05/15/2025 18:16:22 06/12/2025 text/html here for weight check to determine if need to increase Rybelsus dose Fiona Guzman MD Attn: Accounting[address] [place], [address], [facility] 06/12/2025 18:12:33 OBGyn Episode No OBEpisode recorded.
--- OUTSIDE RECORDS SUMMARY | 2025-06-15 13:39 | XMS_ITS | Continuity of Care Document ---
Author Organization [facility] (Adult Med) Address [address] [place] [address] Care Team Providers Care Health Sanitarian Name Role Phone FIONA LARA Primary Care Provider Unavailabl e Assessment No assessment recorded. Plan of Treatment Reminders Order Date Submit Date Provider Last Modified By Organization Details Last Modified Time Details Appointments ANY 2024 01:00P Deborah Santa MD Not available Not available Not available ANY 2025 02:15P Deborah Lara MD Not available Not available Not available Lab renal function panel, serum 2024 [facility], [address] [place] [address], [place] [address], [place], [address], 06/05/2025 10:41:38 vitamin D, 25-hydrox y, total, serum 2024 [facility], [address] [place] [address], [place] [address], [place], [address], 06/05/2025 10:41:38 unlisted lab - PTH-intac t+Ca 2024 [facility], [address] [place] [address], [facility] [address], [place], [address], 06/05/2025 10:41:38 albumin/c reatinine , mass ratio, urine 2024 025 [facility], [address] [place] [address], [address], [place], [address], 06/05/2025 10:41:38 CBC w/ auto diff 2024 [facility], [address] [facility], [address], [place], [address], 06/05/2025 10:41:39 Referral None recorded. Procedures None recorded. Surgeries None recorded. Imaging None recorded. Medication Orders Rybelsus 7 mg tablet 2024 [facility]81, [address] [place], [place], [id number], 05/15/2025 17:54:12 atorvasta tin 20 mg tablet 2024 [facility] #47226, [address] [place], [place], [id number], 05/15/2025 18:16:00 furosemid e 40 mg tablet 2024 [facility] #77083, [address] [place], [place], [id number], 05/15/2025 18:15:56 hydralazi ne 50 mg tablet 2024 025 [facility] #60591, [address] [place], [place], [id number], 05/15/2025 18:16:00 losartan 100 mg tablet 2024 [facility] #94381, [address] [place], [place], [id number], 05/15/2025 18:15:59 Eliquis 5 mg tablet 2024 025 [facility] #20332, [address] [place], [place], [id number], 05/15/2025 18:15:58 magnesium oxide 400 mg (241.3 mg magnesium ) tablet 2024 025 [facility]103, [address] [place], [id number], 05/15/2025 18:15:59 Patient TargetsNo targets recorded. Patient Instructions Encounter Date Encounter Id Patient Instructions Last Modified By Organization Details Last Modified Time 05/15/2025 [id number] A healthy lifestyle: care instructions kfarranne marie Not available 05/15/2025 17:54:06 Reason for Referral None Reported. Results Created Date Observation Date Name Description Value Unit Range Abnormal Flag Note LastModifiedBy Organization Detail LastModifiedTime 05/20/2002/14/2025 jenn r monit or No observ ation record ed. [facility], [address], 05/22/2025 13:42:47 Result Notes None recorded. Problems Name Problem SNOMED Code Status Onset Date Resolution Date Notes Provider Name and Address Organization Details Recorded Time Essential hypertension 26184091 Active Kavita Levy MD Attn: Claudia [address]ar,[address] [place], [address], [facility] 6 17:20:58 Systolic hypertension 89738470 Active Kavita Levy MD Attn: Claudia [address]ar[address] [place], [address], [place] [facility] 6 17:20:58 Benign essential hypertension 5293996 Active 2019 Obie Ahumada MD Attn: [address]ia [address] [place], [address], [place] [facility] 0 14:20:12 Type 2 diabetes mellitus without complication 768053837 Active 2019 Obie Ahumada MD Attn: Claudia avelar,[address] [facility], [place], [address], [facility] 0 14:20:13 Notes:Some problems listed i n Documents: #[id number], #[id number] could not be added to this patient's chart. Please review these documents and add these problems to the patient's chart manually as needed. Problem Notes None recorded. Procedures Surgical History Date Name Laterality Status Provider Name and Address Organization Details Recorded Time 3 catheter ablation of tissue of heart completed Ne Tracy MA [facility] 11/08/2023 14:29:01 cataract surgery completed Ne Tracy MA [facility] 01/10/2024 14:41:42 Imaging Results None recorded. Procedure Notes None recorded. Medical Equipment None Reported. Allergies Allergen ID Allergen Name Allergen Category Reaction Reaction Severity Criticality Documentation Date Start Date Code Code System Note Provider Name and Address Organization Details Recorded Time 330097 codeine medicatio n Not available Not available Not available 01/24/2019 2670 RxNorm Cindy Guzman MA null, [place] [facility] 9 16:12:01 Medications Name Sig [...] Updated DateTime 5 157.48 cm 45.9 kg/m2 878933. 68 g 97 % 77 /min 18 /min 97.1 [degF] 124/76 mm[Hg] Ne Tracy MA [place] [facility] 5 17:00:29 Social History Question Answer Notes LastModified by Organizat ion Details LastModified Time Tobacco Smoking Status Never Smoker Mervin Vega MA null, [place] [facility] 10/16/2014 15:43:23 Do You Have An Advance [...] Or The Highest Degree You Have Received? HI25799-9 Information not available 10/30/2024 Are There Any Guns Present In Your Home? No Information not available 10/29/2021 Do You Have A Medical Power Of Manager Building? No Information not available 01/31/2024 What Was [...] mcg/0.3 mL dose 10/06/2020 completed Not Available [facility] 3 07:21:45 COVID-19, mRNA, LNP-S, PF, 30 mcg/0.3 mL dose 10/24/2020 completed Not Available [facility] 3 07:21:45 COVID-19, mRNA, LNP-S, PF, 30 [...] ICD10 Code Diagnosis IMO Codes Diagnosis Note [id number] MD [facility] (Adult Med) [address] [place] [address] 05/15/2025 16:40:09 05/16/2025 12:35:41 Body mass index 40+ - severely obese 794221292 Z68.42 469823 Pain of left wrist 94177 73022 52764 M25.532 485687 Having left wrist pain with slight supination of wrist. Wrist was better after the injury and then started having this pain. Will have her wear an NAPOLEON wrap and try resting the wrist for the next couple of weeks. If it does not improve will proceed with referral to hand specialist or proceed with MRI. Type 2 viviana herron mellitus 20531122 E11.9 Is tolerating the Rybelsus fine but is frustrated because she is not loosing weight. Discussed increasing it to 14 mg but she wants to give the 7 mg another month. She will come in in one month for a nurse visit for a weight check and if her weight is not moving will increase the dose. Chronic ki dney disease stage 3 095252946 N18.30 3196470086 Has appointmen t with the nephrologi in June. Needs this blood work two weeks before appointmen t. Will get blood work here and take it to the nephrologi st appointmen t. Pain of sa croiliac joint 313454574 M53.3 986416 Area where she has periodic back pain is the SI joint. Reassured her this is musculoske letal pain. Anemia 694279545 D64.9 25815984 Had colonoscop y and EGD but I do not have results. Will get results. If no evidence of cause for bleed may consider hemoglobin electropho resis. Dizziness 201744201 R42 45471 Has not been dizzy or had syncopal [...] reach out to the cardiologi st. Hyperlipidemia 85832629 E78.49 Last lipid panel checked in October was excellent and LDL was at goal less than seventy. Continue statin. Essential hypertension 10707990 I10 Blood pressure well controlled today. Continue present medication . Atrial flutter 2120415 I 48.[address] Recently wore an event monitor and wasn't told the result. Last cardiologi st note I have says waiting on the result. I will reach out to cardiologi st to see if I can get result. Health Concerns Section Related Observation LastModified by Organization Detai ls LastModified Time None Recorded Concern Status LastModified by Organization Details LastModified Time None Recorded Payers Encounter Date Sequence Insurance Name Policy Number Policy Leigh Covered Member ID Leigh Member ID Guarantor Name 05/15/2025 1 [facility] (MEDICARE REPLACEMENT/A DVANTAGE - HMO) [id number] Radha Gupta [id number] Radha Gupta Notes Date Note Type Note Provider Name and Address Organization Details Recorded Time 05/15/2025 text/html ROS as noted in the [...] heart monitor for a month from the shot bagger and he did not tell her the result of the heart monitor, sometimes has issues with back aches, has pain in the right lower back Fiona Lara MD Attn: [address] [facility], [place], [address], [place] [facility] 05/15/2025 18:16:22 OBGyn Episode No OBEpisode recorded.
--- OUTSIDE RECORDS SUMMARY | 2025-06-15 13:39 | XMS_ITS | Clinical Summary ---
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
--- OUTSIDE RECORDS SUMMARY | 2025-06-15 13:40 | XMS_ITS | Continuity of Care Document ---
Author Organization [facility] (Adult Med) Address [address] [place] [address] Care Team Providers Care Driller Machine Name Role Phone FIONA LARA Primary Care Provider Unavailabl e Assessment No assessment recorded. Plan of Treatment Reminders Order Date Submit Date Provider Last Modified By Organization Details Last Modified Time Details Appointments ANY 2024 01:00P M Jony Santa MD Not available Not available Not available ANY 2025 02:15P M Fiona Lara MD Not available Not available Not available Lab None recorded. Referral None recorded. Procedures None recorded. Surgeries None recorded. Imaging None recorded. Medication Orders Rybelsus 14 mg tablet 2024 025 [id number], [address] [place], [place], [id number], 06/12/2025 16:24:32 Patient TargetsNo targets recorded. Patient InstructionsNo instructions recorded. Reason for Referral None Reported. Results Created Date Observation Date Name Description Value Unit Range Abnormal Flag Note LastModifiedBy Organization Detail LastModifiedTime 05/20/2002/14/2025 jenn r monit or No observ ation record ed. [facility] [address] [facility] [address], [facility] [place], [address], 05/22/2025 13:42:47 Result Notes None recorded. Problems Name Problem SNOMED Code Status Onset Date Resolution Date Notes Provider Name and Address Organization Details Recorded Time Essential hypertension 00064648 Active Kavita Levy MD Attn: Claudia g,[address], [place], [address], [place] - [facility] 6 17:20:58 Systolic hypertension 53691852 Active Kavita Levy MD Attn: Claudia avelar,[address], [place], [address], [place] [facility] 6 17:20:58 Benign essential hypertension 2798881 Active 2019 Obie Ahumada MD Attn: Claudia avelar,[address], [place], [address], [place] [facility] 0 14:20:12 Type 2 diabetes mellitus without complication 914727550 Active 2019 Obie Ahumada MD Attn: Claudia avelar,[address], [place], [address], [place] [facility] 0 14:20:13 Notes:Some problems listed i n Documents: #[id number], #[id number] could not be added to this patient's chart. Please review these documents and add these problems to the patient's chart manually as needed. Problem Notes None recorded. Procedures Surgical History Date Name Laterality Status Provider Name and Address Organization Details Recorded Time 3 catheter ablation of tissue of heart completed Ne Tracy [place] [facility] 11/08/2023 14:29:01 cataract surgery completed Ne Tracy [place] [facility] 01/10/2024 14:41:42 Imaging Results None recorded. Procedure Notes None recorded. Medical Equipment None Reported. Allergies Allergen ID Allergen Name Allergen Category Reaction Reaction Severity Criticality Documentation Date Start Date Code Code System Note Provider Name and Address Organization Details Recorded Time 898514 codeine medicatio n Not available Not available Not available 01/24/2019 2670 RxNorm Cindy Guzman MA [facility], [place] - [facility] 9 16:12:01 Medications Name Sig [...] 2024 active Not Available Not Available Not Avtaylor campos Rybelsus 7 mg tablet TAKE 1 TABLET [...] Updated DateTime 06/12/2025 157.48 cm 45.9 kg/m2 523091.68 g Brittany Vega [place] - [facility] 06/12/2025 16:05:10 Social History Question Answer Notes LastModified by Organizat ion Details LastModified Time Tobacco Smoking Status Never Smoker Mervin Vega MA [facility], [place] - [facility] 10/16/2014 15:43:23 Do You Have An [...] Or The Highest Degree You Have Received? [id number] Information not available 10/30/2024 Are There Any Guns Present In Your Home? No Information not available 10/29/2021 Do You Have A Medical Power Of Toe Pounder? No Information not available 01/31/2024 What Was [...] mcg/0.3 mL dose 10/06/2020 completed Not Available [facility] 3 07:21:45 COVID-19, mRNA, LNP-S, PF, 30 mcg/0.3 mL dose 10/24/2020 completed Not Available [facility] 3 07:21:45 COVID-19, mRNA, LNP-S, PF, 30 mcg/0.3 mL dose 08/03/2021 completed RYLIE Morales, [place] - [facility] 08/03/2021 15:23:15 COVID-19, mRNA, LNP-S, bivalent, PF, 30 mcg/0.3 mL dose 06/23/2022 completed RYLIE Mor[place], [place] - [facility] 06/23/2022 15:07:53 Past Encounters Encounter ID Performer Location Encounter Start Date Encounter Closed Date Diagnosis/Indication Diagnosis SNOMED-CT Code Diagnosis ICD10 Code Diagnosis IMO Codes Diagnosis Note [id number] MD [facility] (Adult Med) [address] [place] [address] 05/15/2025 16:40:09 05/16/2025 12:35:41 Body mass index 40+ - severely obese 766630864 Z68.42 917594 Pain of left wrist 82647 67351 54869 M25.532 737291 Having left wrist pain with slight supination of wrist. Wrist was better after the injury and then started having this pain. Will have her wear an [place] wrap and try resting the wrist for the next couple of weeks. If it does not improve will proceed with referral to hand specialist or proceed with MRI. Type 2 viviana betes mellitus 35335551 E11.9 Is tolerating the Rybelsus fine but is frustrated because she is not loosing weight. Discussed increasing it to 14 mg but she wants to give the 7 mg another month. She will come in in one month for a nurse visit for a weight check and if her weight is not moving will increase the dose. Chronic ki dney disease stage 3 565450603 N18.30 [id number] Has appointmen t with the nephrologi in June. Needs this blood work two weeks before appointmen t. Will get blood work here and take it to the nephrologi appointmen t. Pain of sa croiliac joint 999306964 M53.3 337241 Area where she has periodic back pain is the SI joint. Reassured her this is musculoske letal pain. Anemia 402624574 D64.9 22431183 Had colonoscop y and EGD but I do not have results. Will get results. If no evidence of cause for bleed may consider hemoglobin electropho resis. Dizziness 482927670 R42 08290 Has not been dizzy or had syncopal episodes. Saw cardiologi and asked about event monitor that was done and the cardiologi st said I would have the result. I reviewed the cardiologi st note and he said he was waiting for the result of the monitor and that is the last note I see. I will reach out to the cardiologi st. Hyperlipidemia 09821114 E78.49 Last lipid panel checked in October was excellent and LDL was at goal less than seventy. Continue statin. Essential hypertension 10188405 I10 Blood pressure well controlled today. Continue present medication . Atrial flutter 5878625 I 48.92 Sees cardiologi . Recently wore an event monitor and wasn't told the result. Last cardiologi st note I have says waiting on the result. I will reach out to cardiologi to see if I can get result. [id number] MD [facility] (Adult Med) [address] [place] [address] 06/12/2025 15:44:50 06/13/2025 09:33:46 Type 2 diabetes mellitus 67442071 E11.9 49791209 Weight is unchanged. Will increase Rybelsus to 14 mg one tab po q d. Has follow up appointmen t in August. Health Concerns Section Related Observation LastModified by Organization Detai ls LastModified Time None Recorded Concern Status LastModified by Organization Details LastModified Time None Recorded Payers Encounter Date Sequence Insurance Name Policy Number Policy Leigh Covered Member ID Leigh Member ID Guarantor Name 06/12/2025 1 [facility] (MEDICARE REPLACEMENT/A DVANTAGE - HMO) [id number] Radha Gupta [id number] Radha Gupta Notes Date Note Type Note Provider Name and Address Organization Details Recorded Time 06/12/2025 text/html here for weight check to determine if need to increase Rybelsus dose Fiona Lara MD Attn: Accounting,[address] [facility], [place], [address], [facility] - [facility] 06/12/2025 18:12:33 OBGyn Episode No OBEpisode recorded.
--- OUTSIDE RECORDS SUMMARY | 2025-06-15 13:40 | XMS_ITS | Continuity of Care Document ---
Author Organization [facility] (Adult Med) Address [address] [place] [address] Care Team Providers Care Beef Boner Name Role Phone FIONA LARA Primary Care Provider Unavailabl e Assessment Encounter [...] Medication Orders Rybelsus 7 mg tablet 2024 025 [facility]28211, [address] [place], [place], [id number], 04/01/2025 19:34:34 furosemid e 40 mg tablet 2024 025 [facility]51943, [address] [place], [place], [id number], 04/01/2025 19:34:37 losartan 100 mg tablet 2024 025 [facility]82338, [address] [place], [place], [id number], 04/01/2025 19:34:34 Eliquis 5 mg tablet 2024 025 [facility] #73858, [address] [place], [place], [id number], 04/01/2025 19:34:33 atorvasta tin 20 mg tablet 2024 025 [facility] #82442, [address] [place], [place], [id number], 04/01/2025 19:34:33 Patient TargetsNo targets recorded. Patient InstructionsNo instructions recorded. Reason for Referral None Reported. Results Created Date Observation Date Name Description Value Unit Range Abnormal Flag Note LastModifiedBy Organization Detail LastModifiedTime 05/20/2002/14/2025 jenn r monit or No observ ation record ed. [facility] [address], [address], 05/22/2025 13:42:47 Result Notes None recorded. Problems Name Problem SNOMED Code Status Onset Date Resolution Date Notes Provider Name and Address Organization Details Recorded Time Essential hypertension 15982080 Active Kavita Levy MD Attn: Claudia avelar,[address] [facility], [place], [address], [facility] - [facility] 6 17:20:58 Systolic hypertension 40079217 Active Kavita Levy MD Attn: Claudia avelar,[address] [facility], [place], [address], [place] - [facility] 6 17:20:58 Benign essential hypertension 4685420 Active 2019 Obie Ahumada MD Attn: Claudia avelar,[address] [facility], [place], [address], [place] [facility] 0 14:20:12 Type 2 diabetes mellitus without complication 143301883 Active 2019 Obie Ahumada MD Attn: Claudia avelar,[address] [facility], [place], [address], [facility] 0 14:20:13 Notes:Some problems listed i n Documents: #[id number], #[id number] could not be added to this patient's chart. Please review these documents and add these problems to the patient's chart manually as needed. Problem Notes None recorded. Procedures Surgical History Date Name Laterality Status Provider Name and Address Organization Details Recorded Time 3 catheter ablation of tissue of heart completed Ne Tracy [place] [facility] 11/08/2023 14:29:01 cataract surgery completed Ne Tracy [place] - [facility] 01/10/2024 14:41:42 Imaging Results None recorded. Procedure Notes None recorded. Medical Equipment None Reported. Allergies Allergen ID Allergen Name Allergen Category Reaction Reaction Severity Criticality Documentation Date Start Date Code Code System Note Provider Name and Address Organization Details Recorded Time 526320 codeine medicatio n Not available Not available Not available 01/24/2019 2670 RxNorm Cindy Guzman [place] null, [place] - [facility] 9 16:12:01 Medications Name Sig [...] Available Not Available Not Available amoxicillin 500 mg-feliciaiu m clavulanate 125 mg tablet Take 1 [...] Updated DateTime 5 157.48 cm 46.1 kg/m2 228856. 28 g 96 % 74 /min 97.1 [degF] 128/68 mm[Hg] Brittany Vega [place] - [facility] 5 17:11:22 Social History Question Answer Notes LastModified by Organizat ion Details LastModified Time Tobacco Smoking Status Never Smoker Mervin Vega [place] null, [place] [facility] 10/16/2014 15:43:23 Do You Have [...] Or The Highest Degree You Have Received? [id number] Information not available 10/30/2024 Are There Any Guns Present In Your Home? No Information not available 10/29/2021 Do You Have A Medical Power Of Teleprinter Installer? No Information not available 01/31/2024 What Was [...] mcg/0.3 mL dose 10/06/2020 completed Not Available [facility] 3 07:21:45 COVID-19, mRNA, LNP-S, PF, 30 mcg/0.3 mL dose 10/24/2020 completed Not Available [facility] 3 07:21:45 COVID-19, mRNA, LNP-S, PF, 30 [...] ICD10 Code Diagnosis IMO Codes Diagnosis Note [id number] Fiona Lara MD [facility] (Adult Med) [address] [place] [address] 04/01/2025 16:42:33 04/02/2025 12:14:18 Body mass index 40+ - severely obese 158877051 Z68.41 356928 Advised her to continue to focus on diet and try to increase exercise. Type 2 viviana betes mellitus 79146486 E11.9 36333155 Fasting sugars range between 130 and 90. [...] work and urine checked in October. Anemia 136168843 D64.9 8592685 Mild microcytic anemia that is stable. Getting GI work up in March. If no evidence of cause for bleed may consider hemoglobin electropho resis. Osteoarthr itis of knee 135142377 M17.10 633778570 We are hoping the Rybelsus will help with weight loss which will help her knee pain decrease the continued developmen t of arthritis in her knees. Hyperlipidemia 17763438 E78.49 8410801 Last lipid panel checked in October was excellent and LDL was at goal less than seventy. Continue statin. Atrial flutter 3898593 I 48.92 Follows with cardiologi . Recently wore a monitor for a month and no irregular rhythm. Continue Eliquis. Essential hypertension 15822044 I10 Blood pressure well controlled today. Continue present medication . Health Concerns Section Related Observation LastModified by Organization Detai ls LastModified Time None Recorded Concern Status LastModified by Organization Details LastModified Time None Recorded Payers Encounter Date Sequence Insurance Name Policy Number Policy Leigh Covered Member ID Leigh Member ID Guarantor Name 04/01/[address] [facility] (MEDICARE REPLACEMENT/A DVANTAGE - HMO) [id number] Radha Gupta [id number] Radha Gupta Notes Date Note Type Note Provider Name and Address Organization Details Recorded Time 04/01/2025 text/html ROS as noted in the [...] weather it is worse, not daily, Fiona Lara MD Attn: Accounting,[address] [facility], [place], [address], [facility] - [facility] 04/01/2025 19:34:43 OBGyn Episode No OBEpisode recorded.
[2025-06-15 13:41] VITALS: BP 166/68; PULSE 82; RESP 18; TEMP 36.7; O2SAT 97
--- OUTSIDE RECORDS SUMMARY | 2025-06-15 14:18 | XMS_ITS | Clinical Summary ---
Author Organization [facility] Address [address] [place] [address] Care Team Providers Care Metal Mine Inspector Name Role Phone Fiona Guzman MD Primary Care Provider [phone] Source Comments [facility] [employer],non-owned Affiliates and Associated Physician Practices is amultiple site organization consisting of ambulatory clinics and hospital sitesin [place], [place], [place] and [place]. This disclosure is being madepursuant to the Care Everywhere program and may not contain all information available regarding this patient. Last updated 18.[facility] [employer] Allergies Active Allergy Reactions Criticality Noted Date [...] Comments Blood Pressure 163/73 07/12/2024 1:45 PM [facility] Pulse 82 07/12/2024 1:45 PM [facility] Temperature - - Respiratory Rate - - Oxygen Saturation 93% 07/12/2024 1:45 PM [facility] Inhaled Oxygen Concentration - - Weight 107.5 kg (237 lb) 07/12/2024 1:45 PM [facility] Height - - Body Mass Index - [...] 1975 ZOSTER VACCINE (1 of 2) 2006 DIABETES RETINOPATHY SCREENING 07/01/2024 DIABETES-FOOT EXAM WITH MONOFILAMENT 07/01/2024 DIABETES-HGB A1C 07/01/2024 DEPRESSION SCREENING 07/25/2024 DIABETES - URINE PROTEIN SCREENING 07/25/2024 MEDICARE AWV CALENDAR YEAR 2024 COVID-19 VACCINE ( - 2024- season) 2025 06/23/2022, 08/03/2021, 10/24/2020, Additional history exists INFLUENZA VACCINE (#1) 2025 Respiratory Syncytial Virus [...] patient's age to complete this topic Insurance [facility] ADV [facility] ADV SELF PAY NO INSURANCE Member Subscriber Plan / Payer (Ef fective for All Dates) Name:Siddharth Gupta Member ID:Not on file Relation to Subscriber:Not on file Name:CANDYSIDDHARTH Subscriber ID:Not on file (Home) Address: [address] [place] [id number] Payer ID:Not on file Group ID:Not on file Type:Self Pay Address: [place], [place] Care Teams Metal Mine Inspector Relationship Specialty Start Date End Date Fiona Guzman MD [address] [place] [address] PCP - General Emergency Medicine 07/02/24
--- OUTSIDE RECORDS SUMMARY | 2025-06-15 14:18 | XMS_ITS | Clinical Summary ---
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
--- NOTE | 2025-06-15 14:19 | ED.GENADULT ---
HPI - General Adult General Chief complaint: Headache Stated complaint: left sided head pressure Time Seen by Provider: 06/15/25 14:04 History of Present Illness HPI narrative: Patient is 69-year-old female who presents emergency department chief complaint of pressure the left side of her head. Patient reports no nausea no vomiting reports no photophobia reports that she is on anticoagulants and reports that she also had some discomfort in the right shoulder the patient reports no focal neurological deficit Related Data Home Medications ?Medication ?Instructions ?Recorded ?Confirmed ?Last Taken ?Type apixaban 5 mg tablet (Eliquis) 5 mg PO BID 11/08/24 04/04/25 04/01/25 History atorvastatin 20 mg tablet (Lipitor) 20 mg PO DAILY 11/08/24 04/04/25 04/03/25 History diltiazem HCl 90 mg tablet 90 mg PO BID 11/08/24 04/04/25 04/04/25 History ergocalciferol (vitamin D2) 50 mcg 50 mcg PO DAILY 11/08/24 04/04/25 04/03/25 History (2,000 unit) capsule furosemide 40 mg tablet 40 mg PO QAM 11/08/24 04/04/25 04/03/25 History hydralazine 50 mg tablet 50 mg PO TID 11/08/24 04/04/25 04/04/25 History losartan 100 mg tablet 100 mg PO DAILY 11/08/24 04/04/25 04/03/25 History magnesium oxide 400 mg (241.3 mg 400 mg PO BID 01/28/25 04/04/25 04/03/25 History magnesium) tablet isosorbide mononitrate 60 mg 60 mg PO DAILY 03/21/25 04/04/25 04/04/25 History tablet,extended release 24 hr semaglutide 3 mg tablet (Rybelsus) 3 mg PO DAILY 03/21/25 03/21/25 Unknown History Allergies Allergy/AdvReac Type Severity Reaction Status Date / Time codeine Allergy Mild Hives Verified 04/04/25 12:42 Review of Systems Review of Systems: A 10 system review of systems was completed on the patient and is negative except for what is stated in the HPI. Nursing and ancillary documentation was reviewed. [facility] Past Medical History Medical History Anemia Atrial flutter Hypertension Type 2 diabetes mellitus Surgical History Surgical History History of hysterectomy History of cardiac ablation for atrial fibrillation Hx of cataract surgery Social History Social History Smoking status: Never smoker Substance use type: does not use Living arrangements: alone Spiritual care concerns: No Exam Narrative: GENERAL: Well-appearing, well-nourished, and in no acute distress. HEAD: Normocephalic, atraumatic. EYES: PERRLA and EOMI. ENT: Nares clear, no rhinorrhea or epistaxis. Mucous membranes moist. NECK: Supple. CHEST: Clear to auscultation. No respiratory distress. HEART: Regular rate and rhythm. No murmur heard. Normal peripheral pulses. ABDOMEN: Soft, nontender, nondistended, normal active bowel sounds. EXTREMITIES: Normal range of motion. No edema. SKIN: Warm, dry, no rash. NEURO: No focal deficits. Alert and oriented x3. PSYCH: Normal mood and affect. Course Vital Signs Vital signs: Vital Signs Temperature 36.7 C 06/15/25 13:41 Pulse Rate 82 06/15/25 13:41 Respiratory Rate 18 06/15/25 13:41 Blood Pressure 166/68 H 06/15/25 13:41 Pulse Oximetry 97 06/15/25 13:41 Oxygen Delivery Room Air 06/15/25 13:41 Temperature 36.7 C 06/15/25 13:41 Pulse Rate 82 06/15/25 13:41 Respiratory Rate 18 06/15/25 13:41 Blood Pressure 166/68 H 06/15/25 13:41 Pulse Oximetry 97 06/15/25 13:41 Oxygen Delivery Room Air 06/15/25 13:41 Medical Decision Making MDM Narrative Medical decision making narrative: Differential diagnosis includes migraine headache, intracranial hemorrhage, Laboratory studies were obtained the patient which showed a white blood cell count of 4.4 Troponin was negative Patient is feeling much better after receiving Compazine and Benadryl Chest x-ray showed evidence of possible pneumonia Patient was started on doxycycline Vital Signs Vital Signs: Vital Signs Temperature 36.7 C 06/15/25 13:41 Pulse Rate 82 06/15/25 13:41 Respiratory Rate 18 06/15/25 13:41 Blood Pressure 166/68 H 06/15/25 13:41 Pulse Oximetry 97 06/15/25 13:41 Oxygen Delivery Room Air 06/15/25 13:41 Temperature 36.7 C 06/15/25 13:41 Pulse Rate 82 06/15/25 13:41 Respiratory Rate 18 06/15/25 13:41 Blood Pressure 166/68 H 06/15/25 13:41 Pulse Oximetry 97 06/15/25 13:41 Oxygen Delivery Room Air 06/15/25 13:41 Lab Data 06/15/25 15:12 06/15/25 15:12 Labs: Lab Results 06/15/25 06/15/25 Range/Units 14:39 15:12 WBC 4.4 L (4.5-10.0) K/mm3 RBC 4.89 (4.2-5.4) M/mm3 Hgb 10.8 L (12.0-15.0) g/dL Hct 35.8 L (37.0-47.0) % MCV 73.2 L (80-100) fl MCH 22.1 L (26-34) pg MCHC 30.2 L (32-36) g/dl RDW 18.6 H (11.5-14.5) % Plt Count 261 (150-375) k/mm3 MPV 9.4 (7.4-10.4) fl Immature Gran % (Auto) 0.5 (0-0.5) % Neut % (Auto) 64.5 (45.5-73.1) % Lymph % (Auto) 23.5 (18.3-44.2) % [place] % (Auto) 9.6 H (2.6-8.5) % Eos % (Auto) 1.4 (0-4.4) % Baso % (Auto) 0.5 (0.2-1.2) % Lymph # (Auto) 1.03 (0.9-3.2) K/mm3 [place] # (Auto) 0.4 (0.1-0.6) K/mm3 Eos # (Auto) 0.1 (0-0.3) K/mm3 Baso # (Auto) 0.0 (0.0-0.1) K/mm3 Abs Immat Gran (auto) 0.02 (0.00-0.031) K/mm3 Absolute Neuts (auto) 2.8 (1.3-6.7) K/mm3 Absolute Nucleated RBC 0.000 (0.0-0.012) K/mm3 Band Neutrophils % Not Reportable Nucleated RBC % 0.0 (0.0-0.2) % Platelet Estimate Adequate (Adequate) Microcytosis 1+ (NORMAL) Schistocytes None seen Sodium 141 (137-145) mmol/L Potassium 4.1 (3.4-5.0) mmol/L Chloride 106 (98-107) mmol/L Carbon Dioxide 28 (22-30) mmol/L Anion Gap 7 (4-12) mmol/L BUN 14 D (7-17) mg/dL Creatinine 1.16 H (0.7-1.0) mg/dL Estim Creat Clear Calc 56 ml/min Estimated GFR 46 L (59 - ) Glucose 92 (65-110) mg/dL Lactic Acid 0.9 (0.7-2.0) mmol/L Calcium 8.9 (8.4-10.2) mg/dL Magnesium 2.0 (1.6-2.3) mg/dL Total Bilirubin 0.6 (0.2-1.3) mg/dL AST 29 (14-36) U/L ALT 17 (6-35) U/L Alkaline Phosphatase 120 (38-126) U/L Troponin I < 0.012 (0.000-0.034) ng/mL Total Protein 7.9 (6.3-8.2) g/dL Albumin 4.2 (3.5-5.1) g/dL Lipase 189 (23-300) U/L Urine Color Yellow (Yellow) Urine Appearance Clear (Clear) Urine pH 7.5 (5.0-9.0) Ur Specific [place] 1.007 (1.001-1.035) Urine Protein Negative (Negative) mg/dL Urine Glucose (UA) Negative (Negative) mg/dL Urine Ketones Negative (Negative) mg/dL Ur Blood (Man) Negative (Negative) Urine Nitrate Negative (Negative) Urine Bilirubin Negative (Negative) Urine Urobilinogen 0.2 (<2.0) mg/dL Leukocyte Esterase Rfl Negative (Negative) MILO/UL Discharge Plan Discharge Clinical Impression: Headache, Pneumonia Patient Disposition: Home Condition: Stable Instructions: Antibiotic Form, Acute Headache (ED), Community Acquired Pneumonia (ED) Patient Language: Colombian Prescriptions: New cefdinir 300 mg capsule 300 mg PO Q12H 7 Days Qty: 14 0RF doxycycline hyclate 100 mg tablet 100 mg PO BID Qty: 14 0RF No Action atorvastatin [Lipitor] 20 mg tablet 20 mg PO DAILY diltiazem HCl 90 mg tablet 90 mg PO BID Eliquis 5 mg tablet 5 mg PO BID ergocalciferol (vitamin D2) 50 mcg (2,000 unit) capsule 50 mcg PO DAILY furosemide 40 mg tablet 40 mg PO QAM hydralazine 50 mg tablet 50 mg PO TID losartan 100 mg tablet 100 mg PO DAILY magnesium oxide 400 mg (241.3 mg magnesium) tablet 400 mg PO BID Rybelsus 3 mg tablet 3 mg PO DAILY isosorbide mononitrate 60 mg tablet extended release 24 hr 60 mg PO DAILY Follow-up/Referrals: Thomas,Fiona Cordero MD [Primary Care Provider, Unknown] Time of Disposition: 16:48
--- NOTE | 2025-06-15 14:22 | ECG_ITS ---
Test Date: 2025-06-15 15:05:00 Measurements Intervals [place] Rate: 74 P: 28 TN: 147 QRS: -21 QRSD: 94 T: 73 QT: 416 QTc: 464 Interpretive Statements SINUS RHYTHM BORDERLINE LEFT AXIS DEVIATION [QRS AXIS < -20] NONSPECIFIC T-WAVE ABNORMALITY Electronically Signed On 06-15-2025 22:52:45 [facility] by Royce Sahni M.D.
[2025-06-15 14:46] LABS: Add Urine Microscopic? NO; Appearance Urine Clear (Clear); Glucose Urine UA Negative (Negative); Leukocyte Esterase Ur Negative LEU/UL (Negative); Nitrate Urine Negative (Negative); Specific Grav Ur 1.007 (1.001-1.035)
[2025-06-15] MEDS: PROCHLORPERAZINE EDISYLATE 10 MG/2 ML VIAL IV PUSH (15:06)
[2025-06-15] MEDS: SODIUM CHLORIDE 0.9% IV 1,000 ML 999 ML IV CONT (15:07)
[2025-06-15 15:19] LABS: Hematocrit 35.8 % (37.0-47.0); Hemoglobin 10.8 g/dL (12.0-15.0); Immature Granulocyte Percent A 0.5 % (0-0.5); Lymphocytes Absolute Auto 1.03 K/mm3 (0.9-3.2); Mean Corpuscular HGB Conc 30.2 g/dl (32-36); Mean Corpuscular Hemoglobin 22.1 pg (26-34); Mean Corpuscular Volume 73.2 fl (80-100); Nucleated Red Blood Cells Absolute Auto 0.000 K/mm3 (0.0-0.012); Nucleated Red Blood Cells Perc 0.0 % (0.0-0.2); Platelet Count Result 261 k/mm3 (150-375); Red Blood Count 4.89 M/mm3 (4.2-5.4); White Blood Count 4.4 K/mm3 (4.5-10.0)
[2025-06-15 15:38] LABS: Microcytosis 1+ (NORMAL)
[2025-06-15 15:39] LABS: Alanine Aminotransferase 17 U/L (6-35); Albumin Level 4.2 g/dL (3.5-5.1); Alkaline Phosphatase 120 U/L (38-126); Anion Gap 7 mmol/L (4-12); Aspartate Amino Transferase 29 U/L (14-36); Bilirubin,Total 0.6 mg/dL (0.2-1.3); Blood Urea Nitrogen 14 mg/dL (7-17); Calcium 8.9 mg/dL (8.4-10.2); Carbon Dioxide 28 mmol/L (22-30); Chloride 106 mmol/L (98-107); Estimated CRCL calculation 56 ml/min; Estimated Glomerular Filt Rate 46; Glucose 92 mg/dL (65-110); Lipase 189 U/L (23-300); Magnesium 2.0 mg/dL (1.6-2.3); Potassium 4.1 mmol/L (3.4-5.0); Schistocytes None Seen; Sodium 141 mmol/L (137-145); Total Protein 7.9 g/dL (6.3-8.2)
[2025-06-15 15:49] LABS: Troponin I < 0.012 ng/mL (0.000-0.034)
== END 2025-06-15 17:35 | disposition home or self-care (01) ==
PROVIDERS: Emergency Provider Emergency Medicine; PCP Emergency Medicine
DX: R51.9 Headache, unspecified (principal); J18.9 Pneumonia, unspecified organism; E11.9 Type 2 diabetes mellitus without complications; I10 Essential (primary) hypertension; D64.9 Anemia, unspecified; Z90.710 Acquired absence of both cervix and uterus; Z98.49 Cataract extraction status, unspecified eye; Z79.01 Long term (current) use of anticoagulants; Z79.899 Other long term (current) drug therapy; R94.31 Abnormal electrocardiogram [ECG] [EKG]
CPT/HCPCS: 36415; 70450; 71045; 80053; 81003; 83605; 83690; 83735; 84484; 85025; 93005; 96361; 96374; 96375; 99284; J0780; J1200; J7030